=== PATIENT | male | born 1970 | race Caucasian/White ===

== ENCOUNTER 2017-03-31 21:27 | Emergency (ER) | payer MEDICARE ==
[2017-03-31 21:40] VITALS: BP 118/65; PULSE 78; O2SAT 98
[2017-03-31] MEDS ORDERED: NALBUPHINE HCL 10 MG/1 ML INJECTION IM ONE (22:06)
[2017-03-31] MEDS ORDERED: TORAdol 30 mg Injection IM ONE (22:06)
--- NOTE | 2017-03-31 22:15 | ERPHSYRPT ---
- History of Present Illness Time Seen by Provider: 03/31/17 22:12 Source: patient Exam Limitations: no limitations Patient Subjective Stated Complaint: states that his heating tank fell on him x 2 days ago and hurt his ribs and back - states that OTC medications are not helping Triage Nursing Assessment: ambulatory to treatment area - unsteady gait with borrowed cane - moves all extremities with some rigidity et discomfort. resps easy and shallow per pain. alert/oriented - grimmacing affect. skin pwd - no rash/injury Physician History: states that his heating tank fell on him x 2 days ago and hurt his ribs and back - states that OTC medications are not helping. Hx of back surgery in 2003, recent cardiac stent placement 3 - months ago. denies any chest pain, Back pain radiate to both legs Timing/Duration: today Method of Injury: lifting Quality: radiating, sharp, stabbing Back Pain Location: paraspinous muscles Back Pain Radiation: lower legs Severity of Pain-Max: severe Severity of Pain-Current: severe Modifying Factors: Improves With: nothing Associated Symptoms: denies symptoms Allergies/Adverse Reactions: No Known Drug Allergies Allergy (Verified 03/31/17 21:39) Home Medications: Aspirin 81 mg PO DAILY 03/31/17 [History] Atorvastatin Calcium 80 mg PO HS 03/31/17 [History] Bupropion HCl Xl 150 mg [Wellbutrin XL 150 MG] 150 mg PO DAILY 03/31/17 [ History] Cilostazol 100 mg PO DAILY 03/31/17 [History] Escitalopram Oxalate 10 mg [Lexapro 10 MG] 10 mg PO DAILY 03/31/17 [History] Levetiracetam [Keppra 500 mg ] 500 mg PO BID 03/31/17 [History] Lisinopril [Zestril] 2.5 mg PO DAILY 03/31/17 [History] Metoprolol Tartrate 25 mg [Lopressor 25MG Tab] 25 mg PO BID 03/31/17 [ History] Ticagrelor [Brilinta] 90 mg PO BID 03/31/17 [History] Hx Tetanus, Diphtheria Vaccination/Date Given: No Hx Influenza Vaccination/Date Given: No Hx Pneumococcal Vaccination/Date Given: No Immunizations Up to Date: Yes - Review of Systems Constitutional: No Fever, No Chills Eyes: No Symptoms Ears, Nose, & Throat: No Symptoms Respiratory: No Cough, No Dyspnea Cardiac: No Chest Pain, No Edema, No Syncope Abdominal/Gastrointestinal: No Abdominal Pain, No Nausea, No Vomiting, No Diarrhea Genitourinary Symptoms: No Dysuria Musculoskeletal: Back Pain, Other (left side chest wall pain), No Neck Pain Skin: No Rash Neurological: No Dizziness, No Focal Weakness, No Sensory Changes Psychological: No Symptoms Endocrine: No Symptoms All Other Systems: Reviewed and Negative - Past Medical History Pertinent Past Medical History: Yes Neurological History: Seizures Cardiac History: Myocardial Infarction ([place]) GI Medical History: Diverticulosis - Past Surgical History Past Surgical History: Yes Cardiac: Cardiac Stent Gastrointestinal: Appendectomy Musculoskeletal: Orthopedic Surgery - Social History Smoking Status: Current every day smoker How long have you smoked: YRS Exposure to second hand smoke: No Drug Use: none Patient Lives Alone: No - Nursing Vital Signs Nursing Vital Signs: Initial Vital Signs Temperature 98.0 F Temperature Source Oral Pulse Rate 78 Respiratory Rate 16 Blood Pressure [] 118/65 Pain Intensity [] 10 Pain Intensity 10 - Physical Exam General Appearance: no apparent distress, alert Eye Exam: PERRL/EOMI, eyes nml inspection Neck Exam: normal inspection, non-tender, supple, full range of motion, No meningismus, No midline tenderness Respiratory Exam: normal breath sounds, lungs clear, No respiratory distress Cardiovascular Exam: regular rate/rhythm, normal heart sounds Gastrointestinal Exam: soft, No tenderness, No mass Back Exam: decreased range of motion, muscle spasm, other (left side chest wall pain), No vertebral tenderness, No rash Extremity Exam: normal inspection, normal range of motion, No calf tenderness, No pedal edema Neurologic Exam: alert, oriented x 3, cooperative, 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, normal mood/affect, nml station & gait, sensation nml, No motor deficits Skin Exam: normal color, warm, dry, No rash SpO2: 98 Oxygen Delivery: Room Air - Course Nursing assessment & vital signs reviewed: Yes - Radiology Exams Chest X-ray Interpretation: Reviewed by me L-Spine X-ray Interpretation: Reviewed by me Ordered Tests: Active Orders 24 hr Category Date Time Status CHEST 2 VIEWS (PA AND LAT) Stat Exams 03/31/17 22:06 Completed LUMBAR COMPLETE (MIN 4 VIEWS) Stat Exams 03/31/17 22:06 Completed Medication Summary Discontinued Medications Generic Name Dose Route Start Last Admin Trade Name Adrian PRN Reason Stop Dose Admin Ketorolac Tromethamine 60 mg 03/31/17 22:06 03/31/17 22:33 Toradol 30 Mg Injection IM 03/31/17 22:07 60 mg STAT ONE Administration Ketorolac Tromethamine Confirm 03/31/17 22:29 Toradol 30 Mg Injection Administered 03/31/17 22:30 Dose 60 mg .ROUTE .STK-MED ONE Nalbuphine HCl 10 mg 03/31/17 22:06 03/31/17 22:27 Nalbuphine Hcl 10 Mg/1 Ml Injection IM 03/31/17 22:07 Not Given STAT ONE Orphenadrine Citrate 60 mg 03/31/17 22:26 03/31/17 22:33 Norflex 60 Mg/2 Ml IM 03/31/17 22:27 60 mg STAT ONE Administration Orphenadrine Citrate Confirm 03/31/17 22:29 Norflex 60 Mg/2 Ml Administered 03/31/17 22:30 Dose 60 mg .ROUTE .STK-MED ONE - Progress Progress: improved Counseled pt/family regarding: diagnosis, need for follow-up, rad results - Departure Time of Disposition: 22:48 Departure Disposition: Home Clinical Impression: Lumbalgia Qualifiers: Chronicity: acute Back pain laterality: bilateral Sciatica presence: with sciatica Sciatica laterality: bilateral sciatica Qualified Code(s): M54.42 - Lumbago with sciatica, left side; M54.41 - Lumbago with sciatica, right side Condition: Stable Critical Care Time: No Referrals: DOCTOR,NO FAMILY [Primary Care Provider] - Instructions: Low Back Pain, Back Pain With Sciatica Additional Instructions: BACK INJURY 1. May apply moist heat frequently for relief of pain. Take care not to burn the skin. Do not use heat for more than 30 minutes at a time. 2. Try to sleep on a firm bed, flat on your back. 3. If no improvement is noticed in 2-3 days, follow up with your family physician. 4. If you notice any numbness, tingling, weakness, or problems with your bowel or bladder, you should call your family physician or return to the emergency department. Please follow the instructions given to you. Please take your medication as prescribed if given. If symptoms recur or get worse, come back to the emergency room if you cannot reach your primary care physician, or call your primary care physician for an appointment. Again if your symptoms get worse, come back to the emergency room. Thanks for visiting emergency room, and let us take care of you. Prescriptions: Methylprednisolone Packet [Medrol Dosepack] 4 mg PO UD #30 packet Naproxen 375 mg [Naprosyn 375 mg] 375 mg PO Q8H #30 tablet Orphenadrine Citrate 100 mg [Norflex 100 MG Tablet] 100 mg PO BID #20 tab
[2017-03-31] MEDS ORDERED: Norflex 60 MG/2 ML IM ONE (22:26)
[2017-03-31] MEDS ORDERED: Norflex 60 MG/2 ML ONE (22:29)
[2017-03-31] MEDS ORDERED: TORAdol 30 mg Injection ONE (22:29)
--- NOTE | 2017-03-31 22:44 | XRAY ---
Indication: Low back pain. Comparison: None 5 views of the lumbar spine demonstrates 5 lumbar vertebral segments in normal alignment with mild L5-S1 degenerative disc disease as evidenced by disc space narrowing and endplate spurring. Mild bilateral L5-S1 degenerative facet arthropathy. No acute fracture, subluxation, or pars interarticularis defect. Impression: L5-S1 degenerative changes. Nothing acute.
--- NOTE | 2017-03-31 22:44 | XRAY ---
Indication: Left-sided chest pain. Comparison: None PA/lateral chest demonstrates normal heart, lungs, and bony thorax with a few incidental calcified granulomas.
== END 2017-03-31 23:10 | disposition home or self-care (01) ==
LOC: ED 21:27
DX: M54.42 Lumbago with sciatica, left side (principal); M54.41 Lumbago with sciatica, right side; W20.8XXA Other cause of strike by thrown, projected or falling object, initial encounter
CPT/HCPCS: 71020; 72110; 96372; 99284; J1885; J2360

== ENCOUNTER 2017-07-17 18:03 | Emergency (ER) | payer MEDICARE ==
[2017-07-17] MEDS ORDERED: MORPHINE SULFATE 10 MG/ML IV ONE (18:25)
[2017-07-17] MEDS ORDERED: Zofran 4 MG/2 ML VIAL IV ONE (18:25)
[2017-07-17] MEDS ORDERED: Nitrostat 0.4 MG (ED) SL ONE ×2 (18:25→18:39)
--- NOTE | 2017-07-17 18:25 | ERPHSYRPT ---
- History of Present Illness Time Seen by Provider: 07/17/17 18:17 Historian: patient Exam Limitations: clinical condition Patient Subjective Stated Complaint: Pt states "This morning around 3 or 4 I was watching tv and I started to have really bad chest pain, now it is going down my left arm and up into my neck." Triage Nursing Assessment: Pt alert and oriented X 3, skin pwd. pt ambulates with an upright steady gait, able to speak in clear full sentences. pt resting comfortably on the bed Physician History: PATIENT WITH A HISTORY OF CORONARY ARTERY DISEASE STENTS X 2 ON 12/18/2016 AND STENTS X 2 ON 01/17/2017 COMPLAINS OF ACUTE ON SUBSTERNAL CHEST PAIN ONSET AT 4AM CONSTANT, PAIN SCALE 5/10, HAS RADIATION TO LEFT ARM. DENIES DIAPHORESIS, PALPITATIONS, DYSPNEA OR COUGH. Timing/Duration: today Activities at Onset: none Quality: pressure, sharpness Location: substernal Chest Pain Radiation: arm Severity of Pain-Max: moderate Severity of Pain-Current: moderate Modifying Factors: Improves With: nothing Associated Symptoms: other (LEFT ARM PAIN) Prior Chest Pain/Cardiac Workup: cardiac cath (STENTS X4 NOVEMBER AND DECEMBER 2016), heart attack Nitro Today/Relief: 0.4 mg x 1, provided by ED Aspirin Treatment Today: 81 mg x 4, provided at home Allergies/Adverse Reactions: No Known Drug Allergies Allergy (Verified 03/31/17 21:39) Home Medications: No Reportable Medications [No Reported Medications] 07/17/17 [History] Hx Tetanus, Diphtheria Vaccination/Date Given: Yes Hx Influenza Vaccination/Date Given: No Hx Pneumococcal Vaccination/Date Given: No Immunizations Up to Date: Yes - Review of Systems Constitutional: No Fever, No Chills Eyes: No Symptoms Ears, Nose, & Throat: No Symptoms Respiratory: No Symptoms, No Cough, No Dyspnea Cardiac: Chest Pain, No Edema, No Syncope Abdominal/Gastrointestinal: No Symptoms, No Abdominal Pain, No Nausea, No Vomiting, No Diarrhea Genitourinary Symptoms: No Symptoms, No Dysuria Musculoskeletal: No Symptoms, No Back Pain, No Neck Pain Skin: No Symptoms, No Rash Neurological: No Dizziness, No Focal Weakness, No Sensory Changes Psychological: No Symptoms Endocrine: No Symptoms All Other Systems: Reviewed and Negative - Past Medical History Pertinent Past Medical History: Yes Neurological History: Seizures Cardiac History: Myocardial Infarction ([place]) GI Medical History: Diverticulosis - Past Surgical History Past Surgical History: Yes Cardiac: Cardiac Stent Gastrointestinal: Appendectomy Musculoskeletal: Orthopedic Surgery - Social History Smoking Status: Current every day smoker How long have you smoked: 32 years Exposure to second hand smoke: Yes Drug Use: none Patient Lives Alone: Yes - Nursing Vital Signs Nursing Vital Signs: Initial Vital Signs Temperature 98.1 F 07/17/17 18:03 Pulse Rate 82 07/17/17 18:03 Respiratory Rate 18 07/17/17 18:03 Blood Pressure 150/84 07/17/17 18:03 O2 Sat by Pulse Oximetry 96 07/17/17 18:03 Pain Scale Pain Intensity 1 - Physical Exam General Appearance: no apparent distress, alert Eye Exam: PERRL/EOMI, eyes nml inspection Ears, Nose, Throat Exam: normal ENT inspection, moist mucous membranes Neck Exam: normal inspection, non-tender, supple, full range of motion Respiratory Exam: normal breath sounds, lungs clear, No respiratory distress Cardiovascular Exam: regular rate/rhythm, normal heart sounds Gastrointestinal/Abdomen Exam: soft, normal bowel sounds, No tenderness, No mass Back Exam: normal inspection, No CVA tenderness, No vertebral tenderness Extremity Exam: normal inspection, normal range of motion Neurologic Exam: alert, oriented x 3, cooperative, normal mood/affect, sensation nml, No motor deficits Skin Exam: normal color, warm, dry SpO2 Interpretation: normal SpO2: 96 Oxygen Delivery: Room Air - Course EKG Interpreted by Me: RATE, Sinus Rhythm, NORMAL AXIS - Radiology Exams Chest X-ray Interpretation: Interpreted by me (FLAT DIAPHRAMS, NO INFILTRATE) Ordered Tests: Active Orders 24 hr Category Date Time Status EKG-ER Only STAT Care 07/17/17 18:25 Active Oxygen-ED Only NASAL CANNULA 2 lpm Care 07/17/17 18:25 Active CHEST 1 VIEW (PORTABLE) Stat Exams 07/17/17 18:26 Taken CBC W DIFF Stat Lab 07/17/17 18:35 Completed CMP Stat Lab 07/17/17 18:35 Completed D-DIMER QUANTITATION Stat Lab 07/17/17 18:35 Completed NT PRO BNP Stat Lab 07/17/17 18:35 Completed PROTIME WITH INR Stat Lab 07/17/17 18:35 Completed TROPONIN Q3H Lab 07/17/17 18:35 Completed TROPONIN Q3H Lab 07/17/17 21:30 Ordered TROPONIN Q3H Lab 07/18/17 00:30 Ordered TROPONIN Q3H Lab 07/18/17 03:30 Ordered TROPONIN Q3H Lab 07/18/17 06:30 Ordered Medication Summary Generic Name Dose Route Start Last Admin Trade Name Adrian PRN Reason Stop Dose Admin Sodium Chloride 1,000 mls @ 100 mls/hr 07/17/17 18:30 07/17/17 18:42 Sodium Chloride 0.9% 1000 Ml IV 08/16/17 18:29 100 mls/hr .Q10H [place] Administration Discontinued Medications Generic Name Dose Route Start Last Admin Trade Name Adrian PRN Reason Stop Dose Admin Morphine Sulfate 6 mg 07/17/17 18:25 07/17/17 18:41 Morphine Sulfate 10 Mg/Ml IV 07/17/17 18:26 6 mg STAT ONE Administration Morphine Sulfate Confirm 07/17/17 18:40 Morphine Sulfate 10 Mg/Ml Administered 07/17/17 18:41 Dose 10 mg .ROUTE .STK-MED ONE Nitroglycerin 0.4 mg 07/17/17 18:25 07/17/17 18:41 Nitrostat 0.4 Mg (Ed) SL 07/17/17 18:26 0.4 mg STAT ONE Administration Nitroglycerin Confirm 07/17/17 18:39 Nitrostat 0.4 Mg (Ed) Administered 07/17/17 18:40 Dose 0.4 mg SL .STK-MED ONE Nitroglycerin 1 gm 07/17/17 18:55 07/17/17 19:02 Nitro-Bid 2% Ud Packets TOP 07/17/17 18:56 1 gm STAT ONE Administration Nitroglycerin Confirm 07/17/17 19:01 Nitro-Bid 2% Ud Packets Administered 07/17/17 19:02 Dose 1 gm .ROUTE .STK-MED ONE Ondansetron HCl 4 mg 07/17/17 18:25 07/17/17 18:41 Zofran 4 Mg/2 Ml Vial IV 07/17/17 18:26 4 mg STAT ONE Administration Ondansetron HCl Confirm 07/17/17 18:39 Zofran 4 Mg/2 Ml Vial Administered 07/17/17 18:40 Dose 4 mg .ROUTE .STK-MED ONE Lab/Rad Data: Laboratory Result Diagrams 07/17/17 18:35 07/17/17 18:35 Laboratory Results 07/17/17 07/17/17 07/17/17 Range/Units 18:35 18:35 18:35 WBC (4.0-10.5) K/mm3 RBC (4.1-5.6) M/mm3 Hgb (12.5-18.0) gm/dl Hct (42-50) % MCV (78-100) fl MCH (26-32) pg MCHC (32-36) g/dl RDW (11.5-14.0) % Plt Count (150-450) K/mm3 MPV (6-9.5) fl Gran % (36.0-66.0) % Lymphocytes % (24.0-44.0) % Monocytes % (0.0-12.0) % Eosinophils % (0.00-5.0) % Basophils % (0.0-0.4) % Basophils # (0-0.4) INR 1.06 (0.8-3.0) D-Dimer < 200 (0-500) ng/mL Sodium 141 (136-145) mEq/L Potassium 4.0 (3.5-5.1) mEq/L Chloride 103 (98-107) mEq/L Carbon Dioxide 29.2 (21-32) mEq/L Anion Gap 13.0 (5-15) MEQ/L BUN 16 (9-20) mg/dL Creatinine 1.09 (0.55-1.30) mg/dl Estimated GFR > 60 ML/MIN Glucose 89 (70-110) MG/DL Calcium 9.5 (8.5-10.1) mg/dL Total Bilirubin 0.20 (0.2-1.0) mg/dL AST 16 (15-37) U/L ALT 21 (12-78) U/L Alkaline Phosphatase 83 (46-116) U/L Troponin I < 0.017 (0.000-0.056) ng/ml NT-Pro-B Natriuret Pep 26 (0-125) pg/ml Serum Total Protein 7.2 (6.4-8.2) gm/dL Albumin 3.6 (3.4-5.0) g/dL 10/23/17 Range/Units 18:35 WBC 10.1 (4.0-10.5) K/mm3 RBC 4.78 (4.1-5.6) M/mm3 Hgb 14.4 (12.5-18.0) gm/dl Hct 42.7 (42-50) % MCV 89.3 (78-100) fl MCH 30.1 (26-32) pg MCHC 33.7 (32-36) g/dl RDW 14.6 H (11.5-14.0) % Plt Count 275 (150-450) K/mm3 MPV 9.0 (6-9.5) fl Gran % 46.0 (36.0-66.0) % Lymphocytes % 40.6 (24.0-44.0) % Monocytes % 10.5 (0.0-12.0) % Eosinophils % 2.5 (0.00-5.0) % Basophils % 0.4 (0.0-0.4) % Basophils # 0.04 (0-0.4) INR (0.8-3.0) D-Dimer (0-500) ng/mL Sodium (136-145) mEq/L Potassium (3.5-5.1) mEq/L Chloride (98-107) mEq/L Carbon Dioxide (21-32) mEq/L Anion Gap (5-15) MEQ/L BUN (9-20) mg/dL Creatinine (0.55-1.30) mg/dl Estimated GFR ML/MIN Glucose (70-110) MG/DL Calcium (8.5-10.1) mg/dL Total Bilirubin (0.2-1.0) mg/dL AST (15-37) U/L ALT (12-78) U/L Alkaline Phosphatase (46-116) U/L Troponin I (0.000-0.056) ng/ml NT-Pro-B Natriuret Pep (0-125) pg/ml Serum Total Protein (6.4-8.2) gm/dL Albumin (3.4-5.0) g/dL - Progress Progress: improved Progress Note: 07/17/17 19:49 ADMINISTERED NITROGLYCERIN 0.4MG SL, IV MORPHINE 6 MG, NITRO PASTE 1" ANTERIOR CHEST WALL Discussed with DrKirk: Other (DISCUSSED WITH DR KRISHNAMURTHY AT 1955 ACCEPTS TRANSFER TO [facility]) - Departure Departure Disposition: Transfer Clinical Impression: UNSTABLE ANGINA Condition: Stable Critical Care Time: No Referrals: DOCTOR,NO FAMILY [Primary Care Provider] -
[2017-07-17] MEDS ORDERED: Sodium Chloride 0.9% 1000 ML 1,000 ML IV SCH (18:30)
[2017-07-17] MEDS ORDERED: Zofran 4 MG/2 ML VIAL ONE (18:39)
[2017-07-17] MEDS ORDERED: MORPHINE SULFATE 10 MG/ML ONE (18:40)
[2017-07-17] MEDS ORDERED: Sodium Chloride 0.9% 1000 ML 1,000 ML ONE (18:40)
[2017-07-17 18:43] LABS: BASOPHIL % 0.4 % (0.0-0.4); Eosinophil % 2.5 % (0.00-5.0); Lymphocytes % 40.6 % (24.0-44.0); Mean Cell Volume 89.3 fl (78-100); Mean Corpuscular Hemoglobin 30.1 pg (26-32); Monocytes % 10.5 % (0.0-12.0); Platelet Count 275 K/mm3 (150-450); Red Blood Count 4.78 M/mm3 (4.1-5.6); Red Cell Distribution Width 14.6 % (11.5-14.0); White Blood Count 10.1 K/mm3 (4.0-10.5)
[2017-07-17] MEDS ORDERED: NITRO-BID 2% UD PACKETS TOP ONE (18:55)
[2017-07-17 18:58] VITALS: BP 134/58; PULSE 80
[2017-07-17] MEDS ORDERED: NITRO-BID 2% UD PACKETS ONE (19:01)
[2017-07-17 19:08] LABS: INR 1.06 (0.8-3.0); PROTIME 11.8 SECONDS (8.83-12.87)
[2017-07-17 19:22] LABS: ALBUMIN 3.6 g/dL (3.4-5.0); ALKALINE PHOSPHATASE 83 U/L (46-116); BLOOD UREA NITROGEN 16 mg/dL (9-20); CHLORIDE 103 mEq/L (98-107); Carbon Dioxide 29.2 mEq/L (21-32); Glucose 89 MG/DL (70-110); SGOT/AST 16 U/L (15-37); SGPT/ALT 21 U/L (12-78); SODIUM 141 mEq/L (136-145); Total Protein 7.2 gm/dL (6.4-8.2)
[2017-07-17 19:26] VITALS: O2SAT 96
--- NOTE | 2017-07-18 09:01 | XRAY ---
Indication: Chest pain. Comparison: March 31, 2017. Portable apical lordotic chest again demonstrates normal heart, lungs, and bony thorax with a few incidental calcified granulomas.
== END 2017-07-17 20:20 | disposition short-term general hospital (02) ==
LOC: ED 18:03
DX: I20.0 Unstable angina (principal); I25.10 Atherosclerotic heart disease of native coronary artery without angina pectoris; Z98.61 Coronary angioplasty status; R07.89 Other chest pain
CPT/HCPCS: 36415; 71010; 80053; 83880; 84484; 85025; 85379; 85610; 93005; 96360; 96361; 96374; 96375; 99284; 99285; J2270; J2405; A9270-GY

== ENCOUNTER 2018-09-24 23:41 | Emergency (ER) | payer MEDICARE ==
[2018-09-25] MEDS ORDERED: Zofran 4 MG/2 ML VIAL IV ONE (00:02)
[2018-09-25] MEDS ORDERED: Sodium Chloride 0.9% 1000 ML 1,000 ML IV STA (00:02)
[2018-09-25] MEDS ORDERED: MORPHINE SULFATE 4 MG INJ IV ONE (00:02)
--- NOTE | 2018-09-25 00:07 | ERPHSYRPT ---
- History of Present Illness Time Seen by Provider: 09/25/18 00:03 Historian: patient Exam Limitations: no limitations Patient Subjective Stated Complaint: pt is alert and oriented. pt is ambulatory with a steady gait. pt comes in with c/o right sided flank pain. pt is grasping right side. pt has hx of kidney stones. pt denies difficulty urinating or blood in his urine. Triage Nursing Assessment: see above Physician History: 48-year-old white male with history of atherosclerotic coronary artery disease, cardiac stents, seizures, myocardial infarction, diverticulosis. Patient arrives with complaint of right lower quadrant abdominal pain right flank pain symptoms 3-4 days described as sharp and crampy no vomiting no diarrhea no melena no hematochezia no urinary symptoms. Past medical history includes coronary artery disease, cardiac stents, seizures , myocardial infarction, diverticulosis Past surgical history includes appendectomy, cardiac stent, orthopedic surgery ( hand surgery) Social history includes tobacco use and occasional alcohol use. Timing/Duration: day(s) (3-4 days) Activities at Onset: none Quality: aching, cramping, sharpness Abdominal Pain Onset Location: RLQ, flank (right flank) Pain Radiation: groin Severity of Pain-Max: moderate Severity of Pain-Current: moderate Modifying Factors: Improves With: nothing Associated Symptoms: back (right flank pain), testicular pain, vomiting, weakness, No chest pain, No diaphoresis, No diarrhea, No fever/chills, No fatigue, No headache, No heartburn, No loss of appetite, No nausea, No neck pain , No shortness of breath, No syncope Allergies/Adverse Reactions: No Known Drug Allergies Allergy (Verified 03/31/17 21:39) Home Medications: Aspirin EC 81 mg [Ecotrin 81 mg] 81 mg PO DAILY 09/25/18 [History] Atorvastatin Calcium [Lipitor] 80 mg PO DAILY 09/25/18 [History] Cilostazol 100 mg [Pletal 100 MG] 100 mg PO BID 09/25/18 [History] Isosorbide Mononitrate [Isosorbide Mononitrate ER] 30 mg PO DAILY 09/25/18 [ History] Lisinopril [Zestril] 2.5 mg PO DAILY 09/25/18 [History] Metoprolol Tartrate 25 mg [Lopressor 25MG Tab] 25 mg PO BID 09/25/18 [ History] Ranolazine [Ranexa] 1,000 mg PO BID 09/25/18 [History] Hx Tetanus, Diphtheria Vaccination/Date Given: Yes Hx Influenza Vaccination/Date Given: No Hx Pneumococcal Vaccination/Date Given: No Immunizations Up to Date: Yes - Review of Systems Constitutional: No Fever, No Chills Eyes: No Symptoms Ears, Nose, & Throat: No Symptoms Respiratory: No Cough, No Dyspnea Cardiac: No Chest Pain, No Edema, No Syncope Abdominal/Gastrointestinal: Abdominal Pain (right lower quadrant abdominaL PAIN) , No Nausea, No Vomiting, No Diarrhea, No Constipation, No Hematemesis, No Hematochezia, No Melena, No Dysphagia, No Appetite Changes Genitourinary Symptoms: Flank Pain (RIGHT FLANK PAIN), Testicle Pain (RIGHT TESTICLE PAIN) Musculoskeletal: Back Pain (right flank pain), Neck Pain, Deformity, Fall, Injury, Joint Redness, Joint Pain, Joint Swelling, Myalgias Skin: No Rash Neurological: No Dizziness, No Focal Weakness, No Sensory Changes Psychological: No Symptoms Endocrine: No Symptoms All Other Systems: Reviewed and Negative - Past Medical History Pertinent Past Medical History: Yes Neurological History: Seizures Cardiac History: Myocardial Infarction ([place]) GI Medical History: Diverticulosis - Past Surgical History Past Surgical History: Yes Cardiac: Cardiac Stent Gastrointestinal: Appendectomy Musculoskeletal: Orthopedic Surgery - Social History Smoking Status: Current every day smoker How long have you smoked: 33 years Exposure to second hand smoke: Yes Drug Use: none Patient Lives Alone: Yes - Nursing Vital Signs Nursing Vital Signs: Initial Vital Signs Pulse Rate 86 09/24/18 23:54 Respiratory Rate 24 09/24/18 23:54 Blood Pressure 143/92 09/24/18 23:54 O2 Sat by Pulse Oximetry 97 09/24/18 23:54 Pain Scale Pain Intensity 10 - Physical Exam General Appearance: moderate distress, alert Eye Exam: PERRL/EOMI, eyes nml inspection Ears, Nose, Throat Exam: normal ENT inspection, pharynx normal, moist mucous membranes Neck Exam: normal inspection, non-tender, supple, full range of motion Respiratory Exam: normal breath sounds, lungs clear, No respiratory distress Cardiovascular Exam: regular rate/rhythm, normal heart sounds, normal peripheral pulses, No murmur Gastrointestinal/Abdomen Exam: soft, normal bowel sounds, tenderness (Right lower quadranttenderness), No pulsatile mass Male Genitalia Exam: normal genitalia Back Exam: CVA tenderness (right flank tenderness), No normal range of motion, No vertebral tenderness, No rash, No decreased range of motion, No muscle spasm , No point tenderness Extremity Exam: normal inspection Neurologic Exam: alert, oriented x 3, 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 Nonobstructing renal calculi measuring up to 4 mm. 2. Moderate diverticulosis present within the distal colon. 3. Questionable mild wall thickening versus stool in the sigmoid colon. Correlate mild colititis .) Ordered Tests: Active Orders 24 hr Category Date Time Status IV Insertion STAT Care 09/25/18 00:02 Active ABDOMEN AND PELVIS W/0 CONTRAS [CT] Stat Exams 09/25/18 00:02 Taken AMYLASE Stat Lab 09/25/18 00:30 Completed CBC W DIFF Stat Lab 09/25/18 00:30 Completed CMP Stat Lab 09/25/18 00:30 Completed LIPASE Stat Lab 09/25/18 00:30 Completed UA W/RFX UR CULTURE Stat Lab 09/25/18 00:10 Completed Urine Triage Profile Stat Lab 09/25/18 00:10 Completed Medication Summary Discontinued Medications Generic Name Dose Route Start Last Admin Trade Name Adrian PRN Reason Stop Dose Admin Sodium Chloride 1,000 mls @ 999 mls/hr 09/25/18 00:02 09/25/18 00:40 Sodium Chloride 0.9% 1000 Ml IV 09/25/18 01:02 999 mls/hr .Q1H1M STA Administration Sodium Chloride Confirm 09/25/18 00:37 Sodium Chloride 0.9% 1000 Ml Administered 09/25/18 00:38 Dose 1,000 mls @ ud .ROUTE .STK-MED ONE Morphine Sulfate 4 mg 09/25/18 00:02 09/25/18 00:41 Morphine Sulfate 4 Mg Inj IV 09/25/18 00:03 4 mg STAT ONE Administration Morphine Sulfate Confirm 09/25/18 00:37 Morphine Sulfate 4 Mg Inj Administered 09/25/18 00:38 Dose 4 mg .ROUTE .STK-MED ONE Ondansetron HCl 4 mg 09/25/18 00:02 09/25/18 00:41 Zofran 4 Mg/2 Ml Vial IV 09/25/18 00:03 4 mg STAT ONE Administration Ondansetron HCl Confirm 09/25/18 00:37 Zofran 4 Mg/2 Ml Vial Administered 09/25/18 00:38 Dose 4 mg .ROUTE .STK-MED ONE Lab/Rad Data: Laboratory Result Diagrams 09/25/18 00:30 09/25/18 00:30 Laboratory Results 09/25/18 09/25/18 09/25/18 Range/Units 00:30 00:30 00:10 WBC 11.1 H (4.0-10.5) K/mm3 RBC 5.33 (4.1-5.6) M/mm3 Hgb 16.6 (12.5-18.0) gm/dl Hct 48.4 (42-50) % MCV 90.8 (78-100) fl MCH 31.1 (26-32) pg MCHC 34.3 (32-36) g/dl RDW 14.9 H (11.5-14.0) % Plt Count 296 (150-450) K/mm3 MPV 9.1 (6-9.5) fl Gran % 58.0 (36.0-66.0) % Eos # (Auto) 0.25 (0-0.5) Absolute Lymphs (auto) 3.40 (1.0-4.6) Absolute Monos (auto) 0.95 (0.0-1.3) Lymphocytes % 30.7 (24.0-44.0) % Monocytes % 8.6 (0.0-12.0) % Eosinophils % 2.3 (0.00-5.0) % Basophils % 0.4 (0.0-0.4) % Absolute Granulocytes 6.43 (1.4-6.9) Basophils # 0.04 (0-0.4) Sodium 142 (137-145) mmol/L Potassium 3.8 (3.5-5.1) mmol/L Chloride 102 (98-107) mmol/L Carbon Dioxide 27 (22-30) mmol/L Anion Gap 16.5 H (5-15) MEQ/L BUN 18 (9-20) mg/dL Creatinine 1.11 (0.66-1.25) mg/dL Estimated GFR > 60.0 ML/MIN Glucose 98 (74-106) mg/dL Calcium 10.2 (8.4-10.2) mg/dL Total Bilirubin 0.50 (0.2-1.3) mg/dL AST 29 (17-59) U/L ALT 34 (0-50) U/L Alkaline Phosphatase 100 (38-126) U/L Serum Total Protein 8.8 H (6.3-8.2) g/dL Albumin 5.0 (3.5-5.0) g/dL Amylase 197 H (30-110) U/L Lipase 302 H (23-300) U/L Urine Color (YELLOW) Urine Appearance (CLEAR) Urine pH (5-6) Ur Specific [place] (1.005-1.025) Urine Protein (Negative) Urine Ketones (NEGATIVE) Urine Blood (0-5) Rudolph/ul Urine Nitrite (NEGATIVE) Urine Bilirubin (NEGATIVE) Urine Urobilinogen (0-1) mg/dL Ur Leukocyte Esterase (NEGATIVE) Urine WBC (Auto) (0-5) /HPF Urine RBC (Auto) (0-2) /HPF U Hyaline Cast (Auto) (0-2) /LPF U Epithel Cells (Auto) (FEW) /HPF Urine Bacteria (Auto) (NEGATIVE) /HPF Urine Mucus (Auto) (NEGATIVE) /HPF Urine Culture Reflexed (NO) Urine Glucose (NEGATIVE) mg/dL Urine Opiates Level NEGATIVE (NEGATIVE) Ur Methadone NEGATIVE (NEGATIVE) Urine Barbiturates NEGATIVE (NEGATIVE) Ur Phencyclidine (PCP) NEGATIVE (NEGATIVE) Urine Amphetamine NEGATIVE (NEGATIVE) U Benzodiazepine Level NEGATIVE (NEGATIVE) Urine Cocaine NEGATIVE (NEGATIVE) Urine Marijuana (THC) POSITIVE (NEGATIVE) 09/25/18 Range/Units 00:10 WBC (4.0-10.5) K/mm3 RBC (4.1-5.6) M/mm3 Hgb (12.5-18.0) gm/dl Hct (42-50) % MCV (78-100) fl MCH (26-32) pg MCHC (32-36) g/dl RDW (11.5-14.0) % Plt Count (150-450) K/mm3 MPV (6-9.5) fl Gran % (36.0-66.0) % Eos # (Auto) (0-0.5) Absolute Lymphs (auto) (1.0-4.6) Absolute Monos (auto) (0.0-1.3) Lymphocytes % (24.0-44.0) % Monocytes % (0.0-12.0) % Eosinophils % (0.00-5.0) % Basophils % (0.0-0.4) % Absolute Granulocytes (1.4-6.9) Basophils # (0-0.4) Sodium (137-145) mmol/L Potassium (3.5-5.1) mmol/L Chloride (98-107) mmol/L Carbon Dioxide (22-30) mmol/L Anion Gap (5-15) MEQ/L BUN (9-20) mg/dL Creatinine (0.66-1.25) mg/dL Estimated GFR ML/MIN Glucose (74-106) mg/dL Calcium (8.4-10.2) mg/dL Total Bilirubin (0.2-1.3) mg/dL AST (17-59) U/L ALT (0-50) U/L Alkaline Phosphatase (38-126) U/L Serum Total Protein (6.3-8.2) g/dL Albumin (3.5-5.0) g/dL Amylase (30-110) U/L Lipase (23-300) U/L Urine Color YELLOW (YELLOW) Urine Appearance CLEAR (CLEAR) Urine pH 5.0 (5-6) Ur Specific [place] 1.026 (1.005-1.025) Urine Protein NEGATIVE (Negative) Urine Ketones NEGATIVE (NEGATIVE) Urine Blood SMALL (0-5) Rudolph/ul Urine Nitrite NEGATIVE (NEGATIVE) Urine Bilirubin NEGATIVE (NEGATIVE) Urine Urobilinogen 4 (0-1) mg/dL Ur Leukocyte Esterase NEGATIVE (NEGATIVE) Urine WBC (Auto) 3-5 (0-5) /HPF Urine RBC (Auto) 6-10 (0-2) /HPF U Hyaline Cast (Auto) 0-2 (0-2) /LPF U Epithel Cells (Auto) RARE (FEW) /HPF Urine Bacteria (Auto) FEW (NEGATIVE) /HPF Urine Mucus (Auto) MODERATE (NEGATIVE) /HPF Urine Culture Reflexed NO (NO) Urine Glucose NEGATIVE (NEGATIVE) mg/dL Urine Opiates Level (NEGATIVE) Ur Methadone (NEGATIVE) Urine Barbiturates (NEGATIVE) Ur Phencyclidine (PCP) (NEGATIVE) Urine Amphetamine (NEGATIVE) U Benzodiazepine Level (NEGATIVE) Urine Cocaine (NEGATIVE) Urine Marijuana (THC) (NEGATIVE) - Progress Progress: improved Progress Note: 09/25/18 01:23 Patient markedly improved after 1 L of normal saline and 4 mg of morphine and 4 mg of Zofran, Patient's CT abdomen: Impression 1. Nonobstructing renal calculi measuring up to 4 mm 2. Moderate diverticulosis present and distal colon 3. Question mild wall thickening versus stool in the sigmoid colon correlate mild colitis. Will go ahead and plan on discharging patient. Will place patient on Rinard for pain (I have examined his inspect report and I do not see any signs of recent or recurrent narcotic prescriptions) will have patient drink plenty of fluids strain his urine we'll give a list of physicians the patient can follow-up with. Patient will be advised to follow-up with a local physician. - Departure Time of Disposition: 01:25 Departure Disposition: Home Clinical Impression: Right flank pain, Renal colic Abdominal pain Qualifiers: Abdominal location: right lower quadrant Qualified Code(s): R10.31 - Right lower quadrant pain Urolithiasis Qualifiers: Urinary calculus location: kidney Qualified Code(s): N20.0 - Calculus of kidney Condition: Fair Critical Care Time: No Referrals: DOCTOR,NO FAMILY [Primary Care Provider] - Instructions: Kidney Stones ([place]), Flank Pain Additional Instructions: Return home. Plenty of fluids. Clear fluids only 24-48 hours if abdominal pain. Strain all urine. Rinard as prescribed. Follow-up with your family doctor (list). Return for acute distress or for severe symptoms. Prescriptions: Hydrocodone/Acetaminophen [Rinard 5-325 Tablet] 1 tab PO Q4-6HPRN PRN #12 tablet MDD 6 tablets PRN Reason: Pain
[2018-09-25 00:36] LABS: Appearance CLEAR (CLEAR); Bilirubin NEGATIVE (NEGATIVE); Blood SMALL Ery/ul (0-5); Glucose NEGATIVE (NEGATIVE); Ketones NEGATIVE (NEGATIVE); Leukocyte Esterase NEGATIVE (NEGATIVE); Nitrite NEGATIVE (NEGATIVE); Protein,Urine Dip NEGATIVE (Negative); Specific Gravity 1.026 (1.005-1.025); Urobilinogen 4 mg/dL (0-1)
[2018-09-25 00:37] LABS: BASOPHIL % 0.4 % (0.0-0.4); Basophil (Absolute #) 0.04 (0-0.4); Eosinophil % 2.3 % (0.00-5.0); Eosinophil (Absolute #) 0.25 (0-0.5); Granulocyte Absolute (ANC) 6.43 (1.4-6.9); Hematocrit 48.4 % (42-50); Hemoglobin 16.6 gm/dl (12.5-18.0); Lymphocytes % 30.7 % (24.0-44.0); Mean Cell Volume 90.8 fl (78-100); Mean Corpuscular Hemoglobin 31.1 pg (26-32); Mean Corpuscular Hgb Concent. 34.3 g/dl (32-36); Mean Platelet Volume 9.1 fl (6-9.5); Monocyte (Absolute #) 0.95 (0.0-1.3); Monocytes % 8.6 % (0.0-12.0); Platelet Count 296 K/mm3 (150-450); Red Blood Count 5.33 M/mm3 (4.1-5.6); Red Cell Distribution Width 14.9 % (11.5-14.0); White Blood Count 11.1 K/mm3 (4.0-10.5)
[2018-09-25] MEDS ORDERED: Sodium Chloride 0.9% 1000 ML 1,000 ML ONE (00:37)
[2018-09-25] MEDS ORDERED: Zofran 4 MG/2 ML VIAL ONE (00:37)
[2018-09-25] MEDS ORDERED: MORPHINE SULFATE 4 MG INJ ONE (00:37)
[2018-09-25 00:46] LABS: Amphetamine,Urine NEGATIVE (NEGATIVE); Barbiturate,Urine NEGATIVE (NEGATIVE); Benzodiazepine,Urine NEGATIVE (NEGATIVE); Cocaine,Urine NEGATIVE (NEGATIVE); Methadone,Urine NEGATIVE (NEGATIVE); Opiate,Urine NEGATIVE (NEGATIVE); PCP,Urine NEGATIVE (NEGATIVE); THC,Urine POSITIVE (NEGATIVE)
[2018-09-25 01:14] LABS: ALKALINE PHOSPHATASE 100 U/L (38-126); AMYLASE 197 U/L (30-110); ANION GAP 16.5 MEQ/L (5-15); BLOOD UREA NITROGEN 18 mg/dL (9-20); CHLORIDE 102 mmol/L (98-107); Calcium 10.2 mg/dL (8.4-10.2); Carbon Dioxide 27 mmol/L (22-30); Creatinine 1 1.11 mg/dL (0.66-1.25); Glucose 98 mg/dL (74-106); LIPASE 302 U/L (23-300); Potassium 3.8 mmol/L (3.5-5.1); SGOT/AST 29 U/L (17-59); SGPT/ALT 34 U/L (0-50); SODIUM 142 mmol/L (137-145); Total Protein 8.8 g/dL (6.3-8.2)
[2018-09-25] MEDS ORDERED: NORCO 5/325 MG PO ONE (01:31)
[2018-09-25] MEDS ORDERED: NORCO 5/325 MG ONE (01:40)
[2018-09-25 01:48] VITALS: BP 134/86; PULSE 69; O2SAT 95
--- NOTE | 2018-09-25 09:28 | XRAY ---
Indication: Right flank/right lower quadrant pain 4 days. Multiple contiguous axial images obtained through the abdomen and pelvis without contrast using renal stone protocol. Comparison: None Lung bases are clear. Heart is not enlarged. Two right renal and one left renal nonobstructing micro-calculi. Stomach is distended with fluid. Noncontrasted stomach and bowel loops appear nonobstructed. Previous reported appendectomy. There is mild diffuse scattered colonic fecal debris throughout. Minimal sigmoid diverticulosis. A few calcified splenic granulomas. Remaining liver, gallbladder, pancreas, spleen, adrenal glands, kidneys, ureters, and bladder appear unremarkable for noncontrast exam. Mild aortoiliac calcifications without AAA. Osseous structures intact with mild multilevel degenerative changes. No ventral or inguinal hernias. Impression: 1. Nonobstructing bilateral renal micro-calculi. 2. Fecal stasis without obstruction and sigmoid diverticulosis. 3. Remaining CT abdomen/pelvis without contrast exam is negative. Comment: Preliminary interpretation was made by [facility]. No critical discrepancy. CTDI 20.31
== END 2018-09-25 01:45 | disposition home or self-care (01) ==
LOC: ED 23:41
DX: N20.0 Calculus of kidney (principal); N23 Unspecified renal colic; R10.31 Right lower quadrant pain; M54.9 Dorsalgia, unspecified; N50.811 Right testicular pain; K57.30 Diverticulosis of large intestine without perforation or abscess without bleeding; Z79.899 Other long term (current) drug therapy
CPT/HCPCS: 36000; 36415; 74176; 80053; 80307; 81001; 82150; 83690; 85025; 96360; 96374; 96375; 99284; J2270; J2405; A9270-GY

== ENCOUNTER 2019-07-03 12:55 | Emergency (ER) | payer MEDICARE ==
--- NOTE | 2019-07-03 13:35 | ERPHSYRPT ---
- History of Present Illness Time Seen by Provider: 07/03/19 13:34 Source: patient, family Exam Limitations: no limitations Patient Subjective Stated Complaint: pt states 07/04 pain to back, pt states he was bending over and got a sharp pain, pt states that he had 2 previous back surgery, pt has chronic back pain with new pain starting 3 days ago, pt took alieve this morning Triage Nursing Assessment: pt ambulated into er with cane, pt restless, hypertention, reflexes normal, limited movement from , pain radiating to left buttock and leg Physician History: 49 y/o white male presents withlow back pain. pt has chronic low bp issues. 4 days ago pt bending and lifting and twisting. today hurts to lay flat. pt denies acute fall or trauma. Timing/Duration: day(s) (4), worse Method of Injury: bending, twisted, turning Quality: radiating, sharp Back Pain Location: lumbar spine Back Pain Radiation: buttocks Severity of Pain-Max: moderate Severity of Pain-Current: moderate Modifying Factors: Improves With: movement (and laying flat worsens) Associated Symptoms: lower back pain, muscle spasms Previous symptoms: same symptoms as today Allergies/Adverse Reactions: No Known Drug Allergies Allergy (Verified 07/03/19 13:16) Home Medications: Aspirin EC 81 mg [Ecotrin 81 mg] 81 mg PO DAILY 09/25/18 [History] Atorvastatin Calcium [Lipitor] 80 mg PO DAILY 09/25/18 [History] Cilostazol 100 mg [Pletal 100 MG] 100 mg PO BID 09/25/18 [History] Isosorbide Mononitrate [Isosorbide Mononitrate ER] 30 mg PO DAILY 09/25/18 [ History] Metoprolol Tartrate 25 mg [Lopressor 25MG Tab] 25 mg PO BID 09/25/18 [ History] Ranolazine [Ranexa] 1,000 mg PO BID 09/25/18 [History] Ezetimibe 10 mg PO DAILY 07/03/19 [History] Hx Tetanus, Diphtheria Vaccination/Date Given: Yes Hx Influenza Vaccination/Date Given: No Hx Pneumococcal Vaccination/Date Given: No - Review of Systems Constitutional: No Symptoms Eyes: No Symptoms Ears, Nose, & Throat: No Symptoms Respiratory: No Symptoms Cardiac: No Symptoms Abdominal/Gastrointestinal: No Symptoms Genitourinary Symptoms: No Symptoms Musculoskeletal: Back Pain Skin: No Symptoms Neurological: No Symptoms Psychological: No Symptoms Endocrine: No Symptoms Hematologic/Lymphatic: No Symptoms Immunological/Allergic: No Symptoms - Past Medical History Pertinent Past Medical History: Yes Neurological History: Seizures Cardiac History: High Cholesterol, Hypertension, Myocardial Infarction ([place]) Respiratory History: No Pertinent History Endocrine Medical History: No Pertinent History Musculoskeletal History: No Pertinent History GI Medical History: Diverticulosis History: No Pertinent History Psycho-Social History: No Pertinent History Male Reproductive Disorders: No Pertinent History - Past Surgical History Past Surgical History: Yes Cardiac: Cardiac Catheterization, Cardiac Stent Gastrointestinal: Appendectomy Musculoskeletal: Orthopedic Surgery - Social History Smoking Status: Current every day smoker How long have you smoked: 33 years Exposure to second hand smoke: Yes Drug Use: none Patient Lives Alone: Yes - Nursing Vital Signs Nursing Vital Signs: Initial Vital Signs Temperature 98.0 F 07/03/19 13:03 Pulse Rate 97 H 07/03/19 13:03 Blood Pressure 140/106 07/03/19 13:03 O2 Sat by Pulse Oximetry 100 07/03/19 13:03 Pain Scale Pain Intensity [Back] 10 Pain Intensity 10 - Physical Exam General Appearance: mild distress, alert, anxiety Eye Exam: PERRL/EOMI, eyes nml inspection Ears, Nose, Throat Exam: normal ENT inspection, moist mucous membranes Neck Exam: normal inspection, non-tender, supple, full range of motion Respiratory Exam: airway intact, No chest tenderness, No respiratory distress Gastrointestinal Exam: No tenderness Rectal Exam: not done Back Exam: normal inspection, decreased range of motion, muscle spasm, No CVA tenderness, No vertebral tenderness Extremity Exam: normal inspection, normal range of motion, pelvis stable Neurologic Exam: alert, oriented x 3, 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, 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 Skin Exam: normal color, warm, dry Lymphatic Exam: No adenopathy SpO2 Interpretation: normal SpO2: 100 O2 Delivery: Room Air Ordered Tests: Medication Summary Discontinued Medications Generic Name Dose Route Start Last Admin Trade Name Freq PRN Reason Stop Dose Admin Carisoprodol 350 mg 07/03/19 13:57 Soma 350 Mg PO 07/03/19 13:58 STAT ONE Hydromorphone HCl 1 mg 07/03/19 13:55 Hydromorphone 1 Mg/Ml Ampule IM 07/03/19 13:56 STAT ONE Hydromorphone HCl Confirm 07/03/19 14:22 Hydromorphone 1 Mg/Ml Ampule Administered 07/03/19 14:23 Dose 1 mg .ROUTE .STK-MED ONE Methylprednisolone Sodium Succinate 125 mg 07/03/19 13:56 Solu-Medrol 125 Mg IM 07/03/19 13:57 STAT ONE Methylprednisolone Sodium Succinate Confirm 07/03/19 14:22 Solu-Medrol 125 Mg Administered 07/03/19 14:23 Dose 125 mg .ROUTE .STK-MED ONE Ondansetron HCl 4 mg 07/03/19 13:56 Zofran Odt 4 Mg PO 07/03/19 13:57 STAT ONE Ondansetron HCl Confirm 07/03/19 14:22 Zofran Odt 4 Mg Administered 07/03/19 14:23 Dose 4 mg .ROUTE .STK-MED ONE - Progress Progress: improved, pain not gone completely, re-examined Counseled pt/family regarding: diagnosis, need for follow-up - Departure Departure Disposition: Home Clinical Impression: Acute exacerbation of chronic low back pain Condition: Stable Critical Care Time: No Referrals: ANJALI SINGER [Primary Care Provider] - Additional Instructions: follow up with primary doctor for further management Prescriptions: Carisoprodol 350 mg [Soma 350 mg] 350 mg PO Q8H PRN PRN #10 tablet PRN Reason: Muscle Spasms Oxycodone HCl/Acetaminophen [Percocet 5-325 mg Tablet] 1 each PO Q12H PRN #6 tablet MDD 2 PRN Reason: Pain Prednisone 10 mg [Deltasone 10 mg] 10 mg PO TID #12 tablet
[2019-07-03] MEDS ORDERED: Hydromorphone 1 mg/ml Ampule IM ONE (13:55)
[2019-07-03] MEDS ORDERED: ZOFRAN ODT 4 MG PO ONE (13:56)
[2019-07-03] MEDS ORDERED: solu-MEDROL 125 MG IM ONE (13:56)
[2019-07-03] MEDS ORDERED: SOMA 350 MG PO ONE (13:57)
[2019-07-03] MEDS ORDERED: Hydromorphone 1 mg/ml Ampule ONE (14:22)
[2019-07-03] MEDS ORDERED: solu-MEDROL 125 MG ONE (14:22)
[2019-07-03] MEDS ORDERED: ZOFRAN ODT 4 MG ONE (14:22)
[2019-07-03 14:27] VITALS: BP 126/90; PULSE 83
[2019-07-03 14:42] VITALS: O2SAT 100
== END 2019-07-03 14:48 | disposition home or self-care (01) ==
LOC: ED 12:55
DX: M54.5 Low back pain (principal); G89.29 Other chronic pain
CPT/HCPCS: 96372; 99284; J1170; J2930; Q0162; A9270-GY

== ENCOUNTER 2019-12-12 10:17 | Observation (INO) | payer MEDICARE ==
--- NOTE | 2019-12-12 10:43 | ERPHSYRPT ---
- History of Present Illness Time Seen by Provider: 12/12/19 10:30 Source: patient Exam Limitations: no limitations Physician History: For the past week pt has had constant low back, llq & rlq abdominal pain without radiation to the legs. pt also c/o increased urinary frequency and dribbling for the past week. pt denies chest pain, shortness of air, fever, chills, nausea, vomiting, diarrhea. Allergies/Adverse Reactions: No Known Drug Allergies Allergy (Verified 12/12/19 10:32) Home Medications: Cilostazol 100 mg [Pletal 100 MG] 100 mg PO BID 09/25/18 [History] Isosorbide Mononitrate [Isosorbide Mononitrate ER] 30 mg PO DAILY 09/25/18 [ History] Metoprolol Tartrate 25 mg [Lopressor 25MG Tab] 25 mg PO BID 09/25/18 [ History] Ranolazine [Ranexa] 1,000 mg PO BID 09/25/18 [History] Ezetimibe 10 mg PO DAILY 07/03/19 [History] Hx Tetanus, Diphtheria Vaccination/Date Given: Yes Hx Influenza Vaccination/Date Given: No Hx Pneumococcal Vaccination/Date Given: No - Review of Systems Constitutional: No Fever, No Chills Respiratory: No Dyspnea Cardiac: No Chest Pain Abdominal/Gastrointestinal: Abdominal Pain, No Nausea, No Vomiting, No Diarrhea Genitourinary Symptoms: Frequency Musculoskeletal: Back Pain Skin: No Rash All Other Systems: Reviewed and Negative - Past Medical History Pertinent Past Medical History: Yes Neurological History: Seizures Cardiac History: High Cholesterol, Hypertension, Myocardial Infarction ([place]) Respiratory History: No Pertinent History Endocrine Medical History: No Pertinent History Musculoskeletal History: No Pertinent History GI Medical History: Diverticulosis History: No Pertinent History Psycho-Social History: No Pertinent History Male Reproductive Disorders: No Pertinent History - Past Surgical History Past Surgical History: Yes Cardiac: Cardiac Catheterization, Cardiac Stent Gastrointestinal: Appendectomy Musculoskeletal: Orthopedic Surgery - Social History Smoking Status: Current every day smoker How long have you smoked: 33 years Exposure to second hand smoke: Yes Drug Use: none Patient Lives Alone: Yes - Nursing Vital Signs Nursing Vital Signs: Initial Vital Signs Temperature 98.0 F 12/12/19 10:34 Pulse Rate 99 H 12/12/19 10:34 Respiratory Rate 18 12/12/19 10:34 Blood Pressure 162/104 12/12/19 10:34 O2 Sat by Pulse Oximetry 96 12/12/19 10:34 Pain Scale Pain Intensity 8 - Physical Exam General Appearance: alert Eye Exam: PERRL/EOMI Ears, Nose, Throat Exam: TMs normal, pharynx normal Neck Exam: normal inspection Respiratory Exam: lungs clear Cardiovascular Exam: normal heart sounds Gastrointestinal Exam: soft, normal bowel sounds Back Exam: other (mild lumbar paravertebral muscle tenderness) Extremity Exam: normal range of motion, No pedal edema Peripheral Pulses: dorsalis-pedis (R): 2+, dorsalis-pedis (L): 2+ Neurologic Exam: alert, cooperative, sensation nml, No motor deficits Skin Exam: warm, dry SpO2 Interpretation: normal SpO2: 96 O2 Delivery: Room Air - Course Nursing assessment & vital signs reviewed: Yes - CT Exams Abdomen/Pelvis CT Interpretation: Discussed w/radiologist (mild diffuse fecal stasis without obstruction, sigmoid diverticulosis, and non-obstructing left renal microcalculus.) Ordered Tests: Active Orders 24 hr Category Date Time Status ABDOMEN AND PELVIS W/0 CONTRAS [CT] Stat Exams 12/12/19 10:44 Completed AMYLASE Stat Lab 12/12/19 10:55 Completed CBC W DIFF Stat Lab 12/12/19 10:55 Completed CMP Stat Lab 12/12/19 10:55 Completed LIPASE Stat Lab 12/12/19 10:55 Completed UA W/RFX UR CULTURE Stat Lab 12/12/19 10:55 Completed Medication Summary Discontinued Medications Generic Name Dose Route Start Last Admin Trade Name Adrian PRN Reason Stop Dose Admin Ketorolac Tromethamine 60 mg 12/12/19 10:44 12/12/19 10:53 Toradol 30 Mg Injection IM 12/12/19 10:45 60 mg STAT ONE Administration Ketorolac Tromethamine Confirm 12/12/19 10:49 Toradol 30 Mg Injection Administered 12/12/19 10:50 Dose 60 mg .ROUTE .STK-MED ONE Lab/Rad Data: Laboratory Result Diagrams 12/12/19 10:55 12/12/19 10:55 Laboratory Results 12/12/19 12/12/19 12/12/19 Range/Units 10:55 10:55 10:55 WBC 10.3 (4.0-10.5) K/mm3 RBC 5.09 (4.1-5.6) M/mm3 Hgb 15.7 (12.5-18.0) gm/dl Hct 46.0 (42-50) % MCV 90.4 (78-100) fl MCH 30.8 (26-32) pg MCHC 34.1 (32-36) g/dl RDW 14.7 H (11.5-14.0) % Plt Count 324 (150-450) K/mm3 MPV 8.7 (7.5-11.0) fl Gran % 63.1 (36.0-66.0) % Eos # (Auto) 0.19 (0-0.5) Absolute Lymphs (auto) 2.68 (1.0-4.6) Absolute Monos (auto) 0.91 (0.0-1.3) Lymphocytes % 25.9 (24.0-44.0) % Monocytes % 8.8 (0.0-12.0) % Eosinophils % 1.8 (0.00-5.0) % Basophils % 0.4 (0.0-0.4) % Absolute Granulocytes 6.52 (1.4-6.9) Basophils # 0.04 (0-0.4) Sodium 142 (137-145) mmol/L Potassium 4.2 (3.5-5.1) mmol/L Chloride 103 (98-107) mmol/L Carbon Dioxide 31 H (22-30) mmol/L Anion Gap 12.9 (5-15) MEQ/L BUN 16 (9-20) mg/dL Creatinine 1.00 (0.66-1.25) mg/dL Estimated GFR > 60.0 ML/MIN Glucose 116 H (74-106) mg/dL Calcium 9.4 (8.4-10.2) mg/dL Total Bilirubin 0.50 (0.2-1.3) mg/dL AST 24 (17-59) U/L ALT 20 (0-50) U/L Alkaline Phosphatase 80 (38-126) U/L Serum Total Protein 7.6 (6.3-8.2) g/dL Albumin 4.3 (3.5-5.0) g/dL Amylase 217 H (30-110) U/L Lipase 793 H (23-300) U/L Urine Color YELLOW (YELLOW) Urine Appearance CLEAR (CLEAR) Urine pH 6.0 (5-6) Ur Specific Mora 1.017 (1.005-1.025) Urine Protein NEGATIVE (Negative) Urine Ketones NEGATIVE (NEGATIVE) Urine Blood SMALL (0-5) Rudolph/ul Urine Nitrite NEGATIVE (NEGATIVE) Urine Bilirubin NEGATIVE (NEGATIVE) Urine Urobilinogen NEGATIVE (0-1) mg/dL Ur Leukocyte Esterase NEGATIVE (NEGATIVE) Urine WBC (Auto) 0-2 (0-5) /HPF Urine RBC (Auto) 3-5 (0-2) /HPF U Hyaline Cast (Auto) 0-2 (0-2) /LPF U Epithel Cells (Auto) RARE (FEW) /HPF Urine Bacteria (Auto) RARE (NEGATIVE) /HPF Urine Mucus (Auto) SLIGHT (NEGATIVE) /HPF Urine Culture Reflexed NO (NO) Urine Glucose NEGATIVE (NEGATIVE) mg/dL - Progress Progress: unchanged Discussed with : Krista ([phone]).) - Departure Departure Disposition: Observation Clinical Impression: Pancreatitis, Chronic back pain, HTN (hypertension) Condition: Stable Critical Care Time: No Referrals: ANJALI SINGER [Primary Care Provider] -
[2019-12-12] MEDS ORDERED: TORAdol 30 mg Injection IM ONE (10:44)
[2019-12-12] MEDS ORDERED: TORAdol 30 mg Injection ONE (10:49)
[2019-12-12 11:14] LABS: Absolute Neutrophil Ct (ANC) 6.52 (1.4-6.9); Appearance CLEAR (CLEAR); BASOPHIL % 0.4 % (0.0-0.4); Basophil (Absolute #) 0.04 (0-0.4); Bilirubin NEGATIVE (NEGATIVE); Blood SMALL Ery/ul (0-5); Eosinophil % 1.8 % (0.00-5.0); Eosinophil (Absolute #) 0.19 (0-0.5); Glucose NEGATIVE (NEGATIVE); Hemoglobin 15.7 gm/dl (12.5-18.0); Hyaline Casts 0-2 /LPF (0-2); Ketones NEGATIVE (NEGATIVE); Leukocyte Esterase NEGATIVE (NEGATIVE); Lymphocyte (Absolute #) 2.68 (1.0-4.6); Lymphocytes % 25.9 % (24.0-44.0); Mean Cell Volume 90.4 fl (78-100); Mean Corpuscular Hemoglobin 30.8 pg (26-32); Mean Corpuscular Hgb Concent. 34.1 g/dl (32-36); Mean Platelet Volume 8.7 fl (7.5-11.0); Monocyte (Absolute #) 0.91 (0.0-1.3); Monocytes % 8.8 % (0.0-12.0); Mucus SLIGHT /HPF (NEGATIVE); Neutrophil % 63.1 % (36.0-66.0); Nitrite NEGATIVE (NEGATIVE); Platelet Count 324 K/mm3 (150-450); Protein,Urine Dip NEGATIVE (Negative); Red Blood Count 5.09 M/mm3 (4.1-5.6); Red Cell Distribution Width 14.7 % (11.5-14.0); Specific Gravity 1.017 (1.005-1.025); Urobilinogen NEGATIVE mg/dL (0-1); WBC 0-2 /HPF (0-5); White Blood Count 10.3 K/mm3 (4.0-10.5)
[2019-12-12 11:15] LABS: ALBUMIN 4.3 g/dL (3.5-5.0); ALKALINE PHOSPHATASE 80 U/L (38-126); AMYLASE 217 U/L (30-110); ANION GAP 12.9 MEQ/L (5-15); BLOOD UREA NITROGEN 16 mg/dL (9-20); Bacteria RARE /HPF (NEGATIVE); CHLORIDE 103 mmol/L (98-107); Calcium 9.4 mg/dL (8.4-10.2); Carbon Dioxide 31 mmol/L (22-30); Epithelial Cells RARE /HPF (FEW); Glucose 116 mg/dL (74-106); LIPASE 793 U/L (23-300); Potassium 4.2 mmol/L (3.5-5.1); SGOT/AST 24 U/L (17-59); SGPT/ALT 20 U/L (0-50); SODIUM 142 mmol/L (137-145); Total Protein 7.6 g/dL (6.3-8.2)
--- NOTE | 2019-12-12 11:32 | XRAY ---
Indication: Right lower abdomen pain. Multiple contiguous axial images obtained through the abdomen and pelvis without contrast as ordered. Comparison: September 25, 2018. Lung bases remain clear. Heart is not enlarged. Noncontrasted stomach and bowel loops appear nonobstructed. Again previous reported appendectomy. There remains mild diffuse scattered colonic fecal debris throughout and mild sigmoid diverticulosis. No free fluid/air. Stable nonobstructing left renal micro-calculus and calcified splenic granulomas. Remaining liver, gallbladder, pancreas, spleen, adrenal glands, kidneys, ureters, and bladder appear unremarkable for noncontrast exam. Stable mild aortoiliac calcifications without AAA. Osseous structures intact again with mild lumbosacral junction degenerative changes. Impression: 1. Again mild diffuse fecal stasis without obstruction, sigmoid diverticulosis, and nonobstructing left renal micro-calculus. 2. Remaining CT abdomen/pelvis without contrast exam is negative.
[2019-12-12] MEDS ORDERED: Zofran 4 MG/2 ML VIAL IV PRN (12:26)
[2019-12-12] MEDS ORDERED: DILAUDID 2 MG INJECTION IV PRN (12:26)
[2019-12-12] MEDS ORDERED: Hydromorphone 1 mg/ml Ampule IV ONE (12:34)
[2019-12-12] MEDS ORDERED: Hydromorphone 1 mg/ml Ampule ONE (12:40)
[2019-12-12] MEDS ORDERED: Sodium Chloride 0.9% 1000 ML 1,000 ML ONE (12:40)
[2019-12-12] MEDS: Sodium Chloride 0.9% 1000 ML 1,000 ML IV SCH ×2 (12:49→22:51)
[2019-12-12] MEDS: PROTONIX 40 MG IV IV SCH (15:34)
[2019-12-12] MEDS: Cyclobenzaprine 10 MG PO SCH ×2 (15:34→21:51)
[2019-12-12] MEDS: Zetia 10 MG PO SCH (15:35)
[2019-12-12] MEDS: OXYCODONE-ACETAMINOPHEN 10-325 PO PRN ×2 (15:35→20:27)
[2019-12-12] MEDS: Imdur 30 MG PO SCH (15:35)
[2019-12-12] MEDS: Lopressor 25MG Tab PO SCH (21:51)
[2019-12-12] MEDS: Pletal 100 MG PO SCH (21:51)
[2019-12-12] MEDS ORDERED: NAPROSYN 375 MG PO SCH (22:00)
[2019-12-12] MEDS ORDERED: Flomax 0.4 MG PO SCH (22:00)
[2019-12-13] MEDS: OXYCODONE-ACETAMINOPHEN 10-325 PO PRN (04:09)
[2019-12-13 04:50] LABS: BASOPHIL % 0.3 % (0.0-0.4); Basophil (Absolute #) 0.03 (0-0.4); Eosinophil % 2.7 % (0.00-5.0); Eosinophil (Absolute #) 0.25 (0-0.5); Hematocrit 40.5 % (42-50); Hemoglobin 13.5 gm/dl (12.5-18.0); Lymphocyte (Absolute #) 2.84 (1.0-4.6); Lymphocytes % 30.4 % (24.0-44.0); Mean Cell Volume 91.4 fl (78-100); Mean Corpuscular Hemoglobin 30.5 pg (26-32); Mean Corpuscular Hgb Concent. 33.3 g/dl (32-36); Mean Platelet Volume 8.6 fl (7.5-11.0); Monocyte (Absolute #) 0.82 (0.0-1.3); Monocytes % 8.8 % (0.0-12.0); Neutrophil % 57.8 % (36.0-66.0); Platelet Count 284 K/mm3 (150-450); Red Blood Count 4.43 M/mm3 (4.1-5.6); Red Cell Distribution Width 14.7 % (11.5-14.0); White Blood Count 9.3 K/mm3 (4.0-10.5)
[2019-12-13 05:10] LABS: ALBUMIN 3.3 g/dL (3.5-5.0); ALKALINE PHOSPHATASE 70 U/L (38-126); AMYLASE 115 U/L (30-110); ANION GAP 10.3 MEQ/L (5-15); BLOOD UREA NITROGEN 21 mg/dL (9-20); CHLORIDE 106 mmol/L (98-107); Calcium 8.5 mg/dL (8.4-10.2); Carbon Dioxide 28 mmol/L (22-30); Glucose 103 mg/dL (74-106); LIPASE 90 U/L (23-300); Potassium 4.3 mmol/L (3.5-5.1); SGOT/AST 22 U/L (17-59); SGPT/ALT 15 U/L (0-50); SODIUM 140 mmol/L (137-145); Total Protein 6.2 g/dL (6.3-8.2)
[2019-12-13 07:47] VITALS: BP 99/53; PULSE 78; O2SAT 93
[2019-12-13] MEDS: PROTONIX 40 MG IV IV SCH (09:00)
[2019-12-13] MEDS: Zetia 10 MG PO SCH (09:02)
[2019-12-13] MEDS: Pletal 100 MG PO SCH (09:02)
[2019-12-13] MEDS: Lopressor 25MG Tab PO SCH (09:02)
[2019-12-13] MEDS: Cyclobenzaprine 10 MG PO SCH (09:02)
[2019-12-13] MEDS: Imdur 30 MG PO SCH (09:02)
--- NOTE | 2019-12-13 12:13 | SSS ---
DISCHARGE DIAGNOSES: 1) CHRONIC BACK DERANGEMENT. 2) INTRACTABLE BACK PAIN. 3) ELEVATION OF AMYLASE AND LIPASE. HISTORY: The patient is a 49 year-old white male patient with a long history of back problems. He has had two different surgeries performed. He recently seen Dr. Short in [place], a neurosurgeon at [facility], who declined to do surgery for the patient. The patient reported that he came into the emergency room because the back pain became so severe he could not take it any longer. The patient in the emergency room was evaluated and essentially found to have severe back derangement based on his previous scans. The patient is complaining of right and left lower quadrant abdominal pain with the back pain. He was found to have an elevation of his amylase and lipase and was felt the need to be admitted in the hospital for further evaluation and management. PAST MEDICAL/SURGICAL HISTORY: Otherwise significant for having had myocardial infarction. He has had seizures, hypertension, hyperlipidemia and diverticulosis and. He has had previous cardiac stenting and has had previous back surgeries. MEDICATIONS: At home were Pletal 100 mg b.i.d., isosorbide mononitrate 30 mg a day, metoprolol 25 mg twice a day, Ranexa 1,000 mg b.i.d., Zetia 10 mg a day. ALLERGIES: NKDA. PHYSICAL EXAMINATION: The patient's vital signs on admission showed temperature 98.0F, pulse 99, respiratory rate 18, blood pressure 162/94. O2 saturation 96%. HEENT: Normocephalic, atraumatic. Pupils equal round reactive to light. Extraocular movements intact. Oropharynx is pink and moist. NECK: Supple without lymphadenopathy, thyromegaly or JVD. CHEST: Clear to auscultation. HEART: Regular rate and rhythm. ABDOMEN: Soft. No palpable masses. EXTREMITIES: Without cyanosis, clubbing or edema. NEUROLOGIC: The patient is alert and oriented x3. LAB DATA AND TESTS: Normal UA. White count 10,300, hemoglobin 15.7, PLT count 324,000. Sugar 116. BUN 16, creatinine 1.0. Electrolytes were normal. Amylase elevated at 217 and lipase is 793. The patient's examinations revealed CT abdomen and pelvis showing mild diffuse fecal stasis without obstruction, diverticulosis was present, nonobstructing left renal microcalculi, remaining exam was negative. The patient had on the chart record CT scan of lumbar and cervical spine showing significant abnormalities including spinal stenosis and neuroforaminal narrowing and effacement of the neural canal. HOSPITAL COURSE: The patient was admitted to the medicine herrera, given IV fluids. He was allowed to eat a normal dinner as he had no clinical evidence for the reason for the elevation of his amylase and lipase. We rechecked the next morning and they were essentially normal. The patient received Flexeril, Naproxen, Percocet and Flomax to help out for his back pain issues and by the next morning the patient was feeling better. He was felt to be ready for discharge home at this point and we will make him an appointment to see Dr. Hi, our silo painter, upon release. He will see me in the office as needed or within the next month. We are delaying his return to the office due to COVID-19 pandemic currently.
== END 2019-12-13 09:55 | disposition home or self-care (01) ==
LOC: ED 10:17 → MED SURG 13:38
PROVIDERS: ADMIT Family Medicine; ATTEND Family Medicine
DX: M53.86 Other specified dorsopathies, lumbar region (principal); M54.9 Dorsalgia, unspecified; R10.32 Left lower quadrant pain; R10.31 Right lower quadrant pain; M48.02 Spinal stenosis, cervical region; M48.061 Spinal stenosis, lumbar region without neurogenic claudication; R79.89 Other specified abnormal findings of blood chemistry; I10 Essential (primary) hypertension; E78.5 Hyperlipidemia, unspecified; K57.30 Diverticulosis of large intestine without perforation or abscess without bleeding; Z79.899 Other long term (current) drug therapy
CPT/HCPCS: 36415; 74176; 80053; 81001; 82150; 83690; 85025; 93268; 96372; 96374; 99284; J1170; J1885; A9270-GY; G0378

== ENCOUNTER 2020-04-01 12:27 | Day surgery (SDC) | payer MEDICARE ==
[~2020-04-01 12:27] MED LIST: DIPRIVAN 200 MG/20 ML IV ONE; Ketamine HCl 50 MG/ML ONE
[2020-04-01] MEDS ORDERED: Sodium Chloride 0.9(Preservative Free) 10 ML IJ ONE (12:28)
[2020-04-01] MEDS ORDERED: Depo-Medrol 40 MG/ML IM ONE (12:28)
--- NOTE | 2020-04-01 15:12 | XRAY ---
Indication: Left L4-S1 transforaminal SADIA. Intraoperative fluoroscopy was provided for 27 seconds. 3 digital spot images submitted for interpretation demonstrates posterior needle tips projecting over the expected course of the left L4 and L5 nerve roots. Small amount of contrast injected for needle tip placement. Correlate with intraoperative findings/report.
--- NOTE | 2020-04-01 15:14 | XRAY ---
27 seconds fluoroscopy time in surgery for left L4-S1 transforaminal SADIA.
[2020-04-01] MEDS ORDERED: Lactated Ringers 1,000 ML IV ONE (15:57)
== END 2020-04-01 14:51 | disposition home or self-care (01) ==
LOC: SDC-PAIN 12:27
PROVIDERS: ATTEND Psychiatry & Neurology Pain Medicine
DX: M54.16 Radiculopathy, lumbar region (principal); I10 Essential (primary) hypertension; E78.5 Hyperlipidemia, unspecified; I25.10 Atherosclerotic heart disease of native coronary artery without angina pectoris; Z79.899 Other long term (current) drug therapy
CPT/HCPCS: 64483; 64484; 72100; 77003; J1030; J2704; Q9966

== ENCOUNTER 2020-07-21 10:36 | Observation (INO) | payer MEDICARE ==
[2020-07-21] MEDS ORDERED: Nitrostat 0.4 MG (ED) SL ONE ×2 (11:05→11:07)
[2020-07-21] MEDS ORDERED: BABY ASPIRIN 81 MG CHEW ONE (11:07)
[2020-07-21] MEDS ORDERED: BABY ASPIRIN 81 MG CHEW PO ONE (11:07)
[2020-07-21 11:14] LABS: Absolute Neutrophil Ct (ANC) 6.09 (1.4-6.9); BASOPHIL % 0.1 % (0.0-0.4); Basophil (Absolute #) 0.01 (0-0.4); Eosinophil % 1.1 % (0.00-5.0); Eosinophil (Absolute #) 0.12 (0-0.5); Hematocrit 47.2 % (42-50); Hemoglobin 15.7 gm/dl (12.5-18.0); Lymphocyte (Absolute #) 3.29 (1.0-4.6); Lymphocytes % 31.4 % (24.0-44.0); Mean Cell Volume 90.8 fl (78-100); Mean Corpuscular Hemoglobin 30.2 pg (26-32); Mean Corpuscular Hgb Concent. 33.3 g/dl (32-36); Mean Platelet Volume 9.1 fl (7.5-11.0); Monocyte (Absolute #) 0.97 (0.0-1.3); Monocytes % 9.3 % (0.0-12.0); Neutrophil % 58.1 % (36.0-66.0); Platelet Count 322 K/mm3 (150-450); Red Cell Distribution Width 15.5 % (11.5-14.0); White Blood Count 10.5 K/mm3 (4.0-10.5)
[2020-07-21 11:20] LABS: INR 1.05 (0.8-3.0); PROTIME 11.9 SECONDS (8.83-12.87)
[2020-07-21 11:23] LABS: PTT 34.4 SECONDS (24.1-36.1)
--- NOTE | 2020-07-21 11:24 | ERPHSYRPT ---
- History of Present Illness Historian: patient Patient Subjective Stated Complaint: pt here for pain to left arm since 0400 this morning that radiates to left side of chest, pt has a heart hx, took 2 nitro that helped some Triage Nursing Assessment: pt alert, resp easy, face mask in place, skin w/d/p. walked in, moves all ext well, no edema Physician History: 50 yo wm w h/o IN/Stents x4/HTN/Hyperlipidemia/1ppd smoker presents w L substernal CP x9hr w rad to LUE. Pain is rated 3/10 but has been up to 8/10. Pt took 2SL NTG w decrease in pain at home. He denies N/V/dyspnea but has had mild diaphoresis. He has not been taking any of his meds. Cough/fever are denied.Pt given 4 ASA per nursing. Timing/Duration: other (9hrs) Activities at Onset: sleep Quality: aching Location: central Chest Pain Radiation: arm Severity of Pain-Max: mild Severity of Pain-Current: moderate Modifying Factors: Improves With: nitroglycerin Associated Symptoms: diaphoresis, No nausea, No vomiting, No palpitations, No heartburn, No abdominal pain, No shortness of breath, No cough, No hurts to breathe, No chills, No fever, No fatigue, No weakness, No swelling/lump in chest, No syncope, No rash, No headache, No dizziness, No edema, No back pain Prior Chest Pain/Cardiac Workup: cardiac cath, heart attack Nitro Today/Relief: 0.4 mg x 2, provided at home, mild relief Aspirin Treatment Today: no aspirin today Allergies/Adverse Reactions: No Known Drug Allergies Allergy (Verified 07/21/20 10:50) Home Medications: No Reportable Medications [No Reported Medications] 07/21/20 [History] Hx Tetanus, Diphtheria Vaccination/Date Given: Yes Hx Influenza Vaccination/Date Given: No Hx Pneumococcal Vaccination/Date Given: No Immunizations Up to Date: Yes Travel Risk - International Travel Have you traveled outside of the country in past 3 weeks: No - Coronavirus Screening Are you exhibiting any of the following symptoms?: No Close contact with a COVID-19 positive Pt in past 14-21 Days: No - Review of Systems Constitutional: No Symptoms Eyes: No Symptoms Ears, Nose, & Throat: No Symptoms Respiratory: No Symptoms Cardiac: Chest Pain Abdominal/Gastrointestinal: No Symptoms Genitourinary Symptoms: No Symptoms Musculoskeletal: No Symptoms Skin: No Symptoms Neurological: No Symptoms Psychological: No Symptoms Endocrine: No Symptoms Hematologic/Lymphatic: No Symptoms Immunological/Allergic: No Symptoms - Past Medical History Pertinent Past Medical History: Yes Neurological History: Seizures Cardiac History: Coronary Artery Disease, High Cholesterol, Hypertension, Myocardial Infarction ([place]) Respiratory History: No Pertinent History, Asthma Endocrine Medical History: No Pertinent History Musculoskeletal History: No Pertinent History, Degenerative Disk Disease GI Medical History: Diverticulosis, GERD History: No Pertinent History Psycho-Social History: Anxiety, Depression Male Reproductive Disorders: No Pertinent History - Past Surgical History Past Surgical History: Yes Neuro Surgical History: No Pertinent History Cardiac: Cardiac Catheterization, Cardiac Stent Respiratory: No Pertinent History Gastrointestinal: Appendectomy Musculoskeletal: Orthopedic Surgery Other Surgical History: Back surgery - Social History Smoking Status: Current every day smoker How long have you smoked: 30 yrs Exposure to second hand smoke: Yes Drug Use: none Patient Lives Alone: Yes Significant Family History: no pertinent family hx - Nursing Vital Signs Nursing Vital Signs: Initial Vital Signs Temperature 98.3 F 07/21/20 10:44 Pulse Rate 77 07/21/20 10:44 Respiratory Rate 20 07/21/20 10:44 Blood Pressure 179/104 07/21/20 10:44 O2 Sat by Pulse Oximetry 99 07/21/20 10:44 Pain Scale Pain Intensity 2 - Physical Exam General Appearance: no apparent distress Eye Exam: PERRL/EOMI, eyes nml inspection Ears, Nose, Throat Exam: normal ENT inspection, TMs normal, pharynx normal, moist mucous membranes Neck Exam: normal inspection, non-tender, supple, full range of motion, No meningismus, No mass, No Brudzinski, No Kernig's, No carotid bruit, No JVD Respiratory Exam: normal breath sounds, lungs clear, airway intact, No chest tenderness, No respiratory distress Cardiovascular Exam: regular rate/rhythm, normal heart sounds, normal peripheral pulses, No murmur Gastrointestinal/Abdomen Exam: soft, normal bowel sounds, No tenderness Back Exam: normal inspection, normal range of motion, No CVA tenderness Extremity Exam: normal inspection, normal range of motion Neurologic Exam: alert, oriented x 3, cooperative, 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 II-XII nml as tested, normal mood/affect, nml station & gait, sensation nml, No motor deficits, No sensory deficit Skin Exam: normal color, warm, dry Lymphatic Exam: No adenopathy SpO2 Interpretation: normal SpO2: 99 O2 Delivery: Room Air - Course EKG Interpreted by Me: RATE (78/NSR/Normal QT-QTc/No acute ST-T wave changes) Ordered Tests: Active Orders 24 hr Category Date Time Status Gelatin Maker Utility STAT Care 07/21/20 11:06 Completed EKG-ER Only STAT Care 07/21/20 11:02 Completed IV Insertion STAT Care 07/21/20 11:06 Completed Heart-Healthy Diet Diet 07/21/20 Dinner Active CHEST 1 VIEW (PORTABLE) Stat Exams 07/21/20 11:03 Completed CBC W DIFF Stat Lab 07/21/20 11:11 Completed CMP Stat Lab 07/21/20 11:11 Completed LIPID PROFILE AM.LAB Lab 07/22/20 04:00 Ordered MAGNESIUM Stat Lab 07/21/20 11:11 Completed NT PRO BNP Stat Lab 07/21/20 11:11 Completed PROTIME WITH INR Stat Lab 07/21/20 11:11 Completed PTT Stat Lab 07/21/20 11:11 Completed TROPONIN Q3H Lab 07/21/20 11:11 Completed TROPONIN Q3H Lab 07/21/20 14:15 Ordered TROPONIN Q3H Lab 07/21/20 17:15 Ordered TROPONIN Q3H Lab 07/21/20 20:15 Ordered TROPONIN Q3H Lab 07/21/20 23:15 Ordered Transfer Order Routine Transfer 07/21/20 Completed Medication Summary Generic Name Dose Route Start Last Admin Trade Name Freq PRN Reason Stop Dose Admin Acetaminophen 650 mg 07/21/20 11:59 Tylenol 325 Mg PO 08/20/20 11:58 Q4H PRN PRN PAIN AND/OR FEVER Al Hydrox/Mg Hydrox/Simethicone 30 ml 07/21/20 11:59 Maalox Es 30 Ml Unit Dose PO 08/20/20 11:58 Q4H PRN PRN INDIGESTION Aspirin 325 mg 07/22/20 10:00 Ecotrin 325 Mg PO 08/21/20 09:59 DAILY CHILANGO Enoxaparin Sodium 40 mg 07/21/20 13:00 Enoxaparin Sodium SQ 08/20/20 12:59 DAILY CHILANGO Magnesium Hydroxide 30 - 60 ml 07/21/20 11:59 Milk Of Magnesia 30 Ml PO 08/20/20 11:58 QDP PRN CONSTIPATION Metoprolol Succinate 25 mg 07/21/20 13:00 Toprol-Xl 25mg Tablets PO 08/20/20 12:59 DAILY CHILANGO Morphine Sulfate 2 mg 07/21/20 11:59 Morphine Sulfate 2 Mg Inj IV 07/26/20 11:58 .Q15MIN PRN PRN CHEST PAIN Nitroglycerin 1 gm 07/21/20 14:00 07/21/20 12:05 Nitro-Bid 2% Ud Packets TOP 08/20/20 13:59 1 gm Q8HT CHILANGO Administration Ondansetron HCl 4 mg 07/21/20 11:59 Zofran 4 Mg/2 Ml Vial IV 08/20/20 11:58 Q4H PRN PRN NAUSEA/VOMITING Senna/Docusate Sodium 2 udtab 07/21/20 11:59 Senokot-S Tablet PO 08/20/20 11:58 BID PRN PRN CONSTIPATION Discontinued Medications Generic Name Dose Route Start Last Admin Trade Name Freq PRN Reason Stop Dose Admin Aspirin 324 mg 07/21/20 11:07 07/21/20 11:09 Baby Aspirin 81 Mg Chew PO 07/21/20 11:08 324 mg STAT ONE Administration Aspirin Confirm 07/21/20 11:07 Baby Aspirin 81 Mg Chew Administered 07/21/20 11:08 Dose 324 mg .ROUTE .STK-MED ONE Nitroglycerin 0.4 mg 07/21/20 11:05 07/21/20 11:09 Nitrostat 0.4 Mg (Ed) SL 07/21/20 11:06 0.4 mg STAT ONE Administration Nitroglycerin Confirm 07/21/20 11:07 Nitrostat 0.4 Mg (Ed) Administered 07/21/20 11:08 Dose 0.4 mg SL .STK-MED ONE Nitroglycerin Confirm 07/21/20 12:05 Nitro-Bid 2% Ud Packets Administered 07/21/20 12:06 Dose 1 gm .ROUTE .STK-MED ONE Lab/Rad Data: Laboratory Result Diagrams 07/21/20 11:11 07/21/20 11:11 Laboratory Results 07/21/20 07/21/20 07/21/20 Range/Units 11:11 11:11 11:11 WBC (4.0-10.5) K/mm3 RBC (4.1-5.6) M/mm3 Hgb (12.5-18.0) gm/dl Hct (42-50) % MCV (78-100) fl MCH (26-32) pg MCHC (32-36) g/dl RDW (11.5-14.0) % Plt Count (150-450) K/mm3 MPV (7.5-11.0) fl Gran % (36.0-66.0) % Eos # (Auto) (0-0.5) Absolute Lymphs (auto) (1.0-4.6) Absolute Monos (auto) (0.0-1.3) Lymphocytes % (24.0-44.0) % Monocytes % (0.0-12.0) % Eosinophils % (0.00-5.0) % Basophils % (0.0-0.4) % Absolute Granulocytes (1.4-6.9) Basophils # (0-0.4) PT 11.9 (8.83-12.87) SECONDS INR 1.05 (0.8-3.0) APTT 34.4 (24.1-36.1) SECONDS Sodium 138 (137-145) mmol/L Potassium 3.9 (3.5-5.1) mmol/L Chloride 104 (98-107) mmol/L Carbon Dioxide 27 (22-30) mmol/L Anion Gap 11.3 (5-15) MEQ/L BUN 17 (9-20) mg/dL Creatinine 1.05 (0.66-1.25) mg/dL Estimated GFR > 60.0 ML/MIN Glucose 111 H (74-106) mg/dL Calcium 9.4 (8.4-10.2) mg/dL Magnesium 2.1 (1.6-2.3) mg/dL Total Bilirubin 0.30 (0.2-1.3) mg/dL AST 22 (17-59) U/L ALT 15 (0-50) U/L Alkaline Phosphatase 96 (38-126) U/L Troponin I < 0.012 (0.000-0.034) ng/mL NT-Pro-B Natriuret Pep 33.1 (0-900) pg/mL Serum Total Protein 8.1 (6.3-8.2) g/dL Albumin 4.5 (3.5-5.0) g/dL 07/21/20 Range/Units 11:11 WBC 10.5 (4.0-10.5) K/mm3 RBC 5.20 (4.1-5.6) M/mm3 Hgb 15.7 (12.5-18.0) gm/dl Hct 47.2 (42-50) % MCV 90.8 (78-100) fl MCH 30.2 (26-32) pg MCHC 33.3 (32-36) g/dl RDW 15.5 H (11.5-14.0) % Plt Count 322 (150-450) K/mm3 MPV 9.1 (7.5-11.0) fl Gran % 58.1 (36.0-66.0) % Eos # (Auto) 0.12 (0-0.5) Absolute Lymphs (auto) 3.29 (1.0-4.6) Absolute Monos (auto) 0.97 (0.0-1.3) Lymphocytes % 31.4 (24.0-44.0) % Monocytes % 9.3 (0.0-12.0) % Eosinophils % 1.1 (0.00-5.0) % Basophils % 0.1 (0.0-0.4) % Absolute Granulocytes 6.09 (1.4-6.9) Basophils # 0.01 (0-0.4) PT (8.83-12.87) SECONDS INR (0.8-3.0) APTT (24.1-36.1) SECONDS Sodium (137-145) mmol/L Potassium (3.5-5.1) mmol/L Chloride (98-107) mmol/L Carbon Dioxide (22-30) mmol/L Anion Gap (5-15) MEQ/L BUN (9-20) mg/dL Creatinine (0.66-1.25) mg/dL Estimated GFR ML/MIN Glucose (74-106) mg/dL Calcium (8.4-10.2) mg/dL Magnesium (1.6-2.3) mg/dL Total Bilirubin (0.2-1.3) mg/dL AST (17-59) U/L ALT (0-50) U/L Alkaline Phosphatase (38-126) U/L Troponin I (0.000-0.034) ng/mL NT-Pro-B Natriuret Pep (0-900) pg/mL Serum Total Protein (6.3-8.2) g/dL Albumin (3.5-5.0) g/dL - Progress Progress: improved Progress Note: 07/21/20 11:52 1SL NTG w improvement in pain and BP 07/21/20 11:[address] Arndt Discussed with : Krista Counseled pt/family regarding: lab results, diagnosis, rad results, smoking cessation - Departure Departure Disposition: Observation Clinical Impression: Chest pain Condition: Stable Critical Care Time: No
--- NOTE | 2020-07-21 11:32 | XRAY ---
Indication: Chest pain. Comparison: April 18, 2019. Portable chest continues to demonstrate normal heart, lungs, and bony thorax with a few incidental tiny calcified granulomas.
[2020-07-21 11:33] LABS: ALBUMIN 4.5 g/dL (3.5-5.0); ALKALINE PHOSPHATASE 96 U/L (38-126); ANION GAP 11.3 MEQ/L (5-15); BLOOD UREA NITROGEN 17 mg/dL (9-20); CHLORIDE 104 mmol/L (98-107); Calcium 9.4 mg/dL (8.4-10.2); Carbon Dioxide 27 mmol/L (22-30); Creatinine 1 1.05 mg/dL (0.66-1.25); EST GLOMERULAR FILTRATION RATE > 60.0 ML/MIN; Glucose 111 mg/dL (74-106); MAGNESIUM 2.1 mg/dL (1.6-2.3); NT PRO BNP 33.1 pg/mL (0-900); Potassium 3.9 mmol/L (3.5-5.1); SGOT/AST 22 U/L (17-59); SGPT/ALT 15 U/L (0-50); SODIUM 138 mmol/L (137-145); Total Protein 8.1 g/dL (6.3-8.2)
[2020-07-21] MEDS ORDERED: Zofran 4 MG/2 ML VIAL IV PRN (11:59)
[2020-07-21] MEDS ORDERED: Senokot-S Tablet PO PRN (11:59)
[2020-07-21] MEDS ORDERED: MILK OF MAGNESIA 30 ML PO PRN (11:59)
[2020-07-21] MEDS ORDERED: TYLENOL 325 MG PO PRN (11:59)
[2020-07-21] MEDS ORDERED: MAALOX ES 30 ML UNIT DOSE PO PRN (11:59)
[2020-07-21] MEDS ORDERED: MORPHINE SULFATE 2 MG INJ IV PRN (11:59)
[2020-07-21] MEDS: NITRO-BID 2% UD PACKETS TOP SCH ×2 (12:05→22:27)
[2020-07-21] MEDS ORDERED: NITRO-BID 2% UD PACKETS ONE (12:05)
[2020-07-21] MEDS ORDERED: Toprol-Xl 25MG Tablets PO SCH (13:00)
[2020-07-21] MEDS ORDERED: ENOXAPARIN SODIUM SQ SCH (13:00)
[2020-07-22 05:43] LABS: Risk Ratio 5.3
[2020-07-22] MEDS: NITRO-BID 2% UD PACKETS TOP SCH (06:34)
[2020-07-22 07:26] VITALS: BP 150/84; PULSE 55; O2SAT 97
[2020-07-22] MEDS ORDERED: Ecotrin 325 MG PO SCH (10:00)
--- NOTE | 2020-07-22 10:06 | SSS ---
DISCHARGE DIAGNOSES: 1) UNSTABLE ANGINA PECTORIS. 2) CORONARY ARTERY DISEASE. 3) HYPERLIPIDEMIA. HISTORY: The patient is a 50 year old white male with known history of heart disease. He had stents placed x4 approximately two years ago by Dr. Bunn. The patient reports that he had been pretty good for the last year and it has been about a year since he has seen either me or Dr. Bunn. He began having problems with left arm pain radiating to about intermediate through to his chest on the left side. He took two Nitro and due to this concern he presented to the emergency room for further evaluation and management. The patient does admit to not taking medications recently. He has been having some disagreement with his pharmacy about getting pill packs done. He is unhappy with how he is getting his medications. He has therefore not been on any medication in the past few weeks. MEDICATIONS: The patient therefore is currently on no medications. ALLERGIES: NKDA. PHYSICAL EXAMINATION: Vital signs on admission showed temperature 98.3F, pulse 77, respiratory rate 20 and blood pressure 179/104. O2 saturation 99% on room air. HEENT: Normocephalic, atraumatic. Pupils equal round reactive to light. Extraocular movements intact. Oropharynx is pink and moist. NECK: Supple without lymphadenopathy, thyromegaly or JVD. CHEST: Clear to auscultation. HEART: Regular rate and rhythm. No murmurs, rubs or gallops. ABDOMEN: Soft. No palpable masses. EXTREMITIES: Without cyanosis, clubbing or edema. NEUROLOGIC: The patient is alert and oriented x3. No focal deficits were noted. LAB DATA AND TESTS: The patient's laboratory studies shows 12 lead EKG x2 with essentially appearing normal. He had multiple troponins done all less than 0.012. His lipid panel showed LDL of 166 with HDL of 42. His INR is 1.05. His sugar was 111. BUN 15, creatinine 1.05. Electrolytes are normal. Liver enzymes normal. ProBNP normal. CBC was normal. HOSPITAL COURSE: The patient admitted to the medicine herrera and monitored overnight. He had one episode of chest discomfort not lasting as long or severe during his stay but otherwise currently is pain free. The patient is felt to be ready for discharge home having ruled out for myocardial infarction. We will start him on carvedilol 6.25 mg b.i.d. and Crestor 10 mg a day for his hyperlipidemia. He was instructed to have aspirin 81 mg a day and he has Nitro tablets throughout the house that are current and apparently were somewhat helpful for him when he took them prior to presenting to the emergency room. The patient is instructed to see his neurosurgical physician assistant as soon as possible. He will have a follow up appointment to see me in one week and he is to return to the hospital if he has chest discomfort that is not controlled by his aspirin and Nitro.
== END 2020-07-22 09:10 | disposition home or self-care (01) ==
LOC: ED 10:36 → MED SURG 12:15
PROVIDERS: ADMIT Family Medicine; ATTEND Family Medicine
DX: I25.110 Atherosclerotic heart disease of native coronary artery with unstable angina pectoris (principal); E78.5 Hyperlipidemia, unspecified; Z79.899 Other long term (current) drug therapy
CPT/HCPCS: 36000; 36415; 71045; 80053; 80061; 83721; 83735; 83880; 84484; 85025; 85610; 85730; 93005; 93041; 93268; 99285; G0378; A9270-GY

== ENCOUNTER 2020-11-24 20:33 | Observation (INO) | payer MEDICARE ==
[2020-11-24] MEDS ORDERED: solu-MEDROL 125 MG IV ONE (21:09)
[2020-11-24] MEDS ORDERED: DUONEB 0.5-3 MG/3 ml Neb IH ONE (21:09)
[2020-11-24] MEDS ORDERED: BABY ASPIRIN 81 MG CHEW PO ONE (21:10)
[2020-11-24] MEDS ORDERED: MORPHINE SULFATE 4 MG INJ IV ONE ×2 (21:10→21:43)
[2020-11-24] MEDS ORDERED: Zofran 4 MG/2 ML VIAL IV ONE ×2 (21:10→21:41)
[2020-11-24] MEDS ORDERED: Zofran 4 MG/2 ML VIAL ONE (21:16)
[2020-11-24] MEDS ORDERED: solu-MEDROL 125 MG ONE (21:16)
[2020-11-24] MEDS ORDERED: BABY ASPIRIN 81 MG CHEW ONE (21:16)
[2020-11-24] MEDS ORDERED: MORPHINE SULFATE 4 MG INJ ONE ×2 (21:16→21:41)
[2020-11-24] MEDS ORDERED: VENTOLIN COMMON CANISTER IH ONE (21:28)
[2020-11-24 21:41] LABS: Absolute Neutrophil Ct (ANC) 6.75 (1.4-6.9); BASOPHIL % 0.2 % (0.0-0.4); Basophil (Absolute #) 0.03 (0-0.4); Eosinophil % 1.8 % (0.00-5.0); Eosinophil (Absolute #) 0.25 (0-0.5); Hemoglobin 14.9 gm/dl (12.5-18.0); Lymphocytes % 36.6 % (24.0-44.0); Mean Cell Volume 88.9 fl (78-100); Mean Corpuscular Hemoglobin 29.4 pg (26-32); Mean Corpuscular Hgb Concent. 33.1 g/dl (32-36); Monocyte (Absolute #) 1.62 (0.0-1.3); Monocytes % 11.9 % (0.0-12.0); Neutrophil % 49.5 % (36.0-66.0); Platelet Count 347 K/mm3 (150-450); Red Blood Count 5.06 M/mm3 (4.1-5.6); Red Cell Distribution Width 16.4 % (11.5-14.0); White Blood Count 13.7 K/mm3 (4.0-10.5)
[2020-11-24 22:01] LABS: ALBUMIN 4.3 g/dL (3.5-5.0); ALKALINE PHOSPHATASE 92 U/L (38-126); ANION GAP 9.7 MEQ/L (5-15); BLOOD UREA NITROGEN 23 mg/dL (9-20); CHLORIDE 101 mmol/L (98-107); Carbon Dioxide 32 mmol/L (22-30); Creatinine 1 1.11 mg/dL (0.66-1.25); EST GLOMERULAR FILTRATION RATE > 60.0 ML/MIN; Glucose 92 mg/dL (74-106); Potassium 3.5 mmol/L (3.5-5.1); SGOT/AST 21 U/L (17-59); SGPT/ALT 17 U/L (0-50); SODIUM 138 mmol/L (137-145); Total Protein 7.4 g/dL (6.3-8.2)
[2020-11-24 23:14] LABS: Slide Review 1 YES
--- NOTE | 2020-11-24 23:21 | ERPHSYRPT ---
- History of Present Illness Time Seen by Provider: 11/24/20 20:37 Historian: patient Exam Limitations: no limitations Patient Subjective Stated Complaint: pt states he has had a cough for a few weeks that has been getting worse, states pain in lt chest and ribs radiating to lt shoulder blade. Triage Nursing Assessment: pt alert and oriented, answers questions approp. pt ambulatory with steady gait noted. respirations nonlabored with lungs cta. tenderness noted over lt ribs. pt short of breath with exertion. skin warm and dry. heart rate 94 sinus rhythm on monitor Physician History: 50 years old male with history of coronary artery disease status post stenting, tobacco abuse, COPD presented in the ER with 2 days history of left-sided chest pain with radiation to left upper back and shoulder blade area, moderate intensity, sharp in nature with associated shortness of breath and cough productive of clear to yellow sputum. Denies any fever or chills. Patient has been taking only aspirin and no other cardiac medications as he lost his follow- up with cardiology. Reports recently taking antibiotics for infectious colitis. Timing/Duration: day(s) (2), gradual onset, worse Activities at Onset: rest Quality: sharpness Location: shoulder, back Chest Pain Radiation: back Severity of Pain-Max: moderate Severity of Pain-Current: moderate Modifying Factors: Worsens With: movement, palpation, sitting up Associated Symptoms: shortness of breath, back pain Prior Chest Pain/Cardiac Workup: cardiac cath Nitro Today/Relief: no nitro taken today Aspirin Treatment Today: 81 mg x 1 Allergies/Adverse Reactions: No Known Drug Allergies Allergy (Verified 11/24/20 20:58) Hx Tetanus, Diphtheria Vaccination/Date Given: Yes Hx Influenza Vaccination/Date Given: No Hx Pneumococcal Vaccination/Date Given: No Immunizations Up to Date: Yes Travel Risk - International Travel Have you traveled outside of the country in past 3 weeks: No - Coronavirus Screening Are you exhibiting any of the following symptoms?: Yes Symptoms: Fever, Shortness of Breath Close contact with a COVID-19 positive Pt in past 14-21 Days: No - Review of Systems Constitutional: No Symptoms Eyes: No Symptoms Ears, Nose, & Throat: No Symptoms Respiratory: Cough, Dyspnea, Dyspnea on Exertion (VIVEROS), Wheezing Cardiac: Chest Pain Abdominal/Gastrointestinal: No Symptoms Genitourinary Symptoms: No Symptoms Musculoskeletal: Back Pain Skin: No Symptoms Neurological: No Symptoms Psychological: No Symptoms Endocrine: No Symptoms Hematologic/Lymphatic: No Symptoms Immunological/Allergic: No Symptoms - Past Medical History Pertinent Past Medical History: Yes Neurological History: Seizures ENT History: No Pertinent History Cardiac History: Coronary Artery Disease, High Cholesterol, Hypertension, Myocardial Infarction (NM) Respiratory History: No Pertinent History, Asthma Endocrine Medical History: No Pertinent History Musculoskeletal History: No Pertinent History, Degenerative Disk Disease GI Medical History: Diverticulosis, GERD History: No Pertinent History Psycho-Social History: Anxiety, Depression Male Reproductive Disorders: No Pertinent History - Past Surgical History Past Surgical History: Yes Neuro Surgical History: No Pertinent History Cardiac: Cardiac Catheterization, Cardiac Stent Respiratory: No Pertinent History Gastrointestinal: Appendectomy Genitourinary: No Pertinent History Musculoskeletal: Orthopedic Surgery Male Surgical History: No Pertinent History Other Surgical History: Back surgery, 5 cardiac stents - Social History Smoking Status: Current every day smoker How long have you smoked: 35 Exposure to second hand smoke: Yes Drug Use: none Patient Lives Alone: Yes Significant Family History: no pertinent family hx - Nursing Vital Signs Nursing Vital Signs: Initial Vital Signs Temperature 98.3 F 11/24/20 20:41 Pulse Rate 96 H 11/24/20 20:41 Respiratory Rate 20 11/24/20 20:41 Blood Pressure 153/107 11/24/20 20:41 O2 Sat by Pulse Oximetry 98 11/24/20 20:41 Pain Scale Pain Intensity 3 - Physical Exam General Appearance: no apparent distress, alert Eye Exam: eyes nml inspection Ears, Nose, Throat Exam: normal ENT inspection, TMs normal, pharynx normal Neck Exam: normal inspection, non-tender, supple, full range of motion Respiratory Exam: chest tenderness, wheezing Cardiovascular Exam: regular rate/rhythm, normal heart sounds Gastrointestinal/Abdomen Exam: soft, normal bowel sounds, No tenderness Back Exam: normal inspection, normal range of motion, No CVA tenderness Extremity Exam: normal inspection, normal range of motion Neurologic Exam: alert, oriented x 3, cooperative, manager loan II-XII nml as tested Skin Exam: normal color SpO2 Interpretation: normal SpO2: 97 O2 Delivery: Room Air - Course EKG Interpreted by Me: RATE (95), Sinus Rhythm, NORMAL AXIS, NORMAL INTERVALS, Other (PACs) Ordered Tests: Active Orders 24 hr Category Date Time Status Place Change Roof Bolter STAT Care 11/24/20 20:57 Active EKG-ER Only STAT Care 11/24/20 20:56 Active IV Insertion STAT Care 11/24/20 20:56 Active Oxygen-ED Only Nasal Cannula 2 lpm Care 11/24/20 22:20 Active CHEST WITH CONTRAST [CT] Stat Exams 11/24/20 22:11 Taken BLOOD CULTURE Stat Lab 11/24/20 21:30 Received CBC W DIFF Stat Lab 11/24/20 21:15 Completed CMP Stat Lab 11/24/20 21:15 Completed Lactic Acid Stat Lab 11/24/20 21:20 Completed NT PRO BNP Stat Lab 11/24/20 21:15 Completed TROPONIN Q3H Lab 11/24/20 21:15 Completed TROPONIN Q3H Lab 11/25/20 00:15 Ordered TROPONIN Q3H Lab 11/25/20 03:15 Ordered TROPONIN Q3H Lab 11/25/20 06:15 Ordered TROPONIN Q3H Lab 11/25/20 09:15 Ordered Respiratory Therapy Assessment DAILY RT 11/24/20 21:37 Active Medication Summary Discontinued Medications Generic Name Dose Route Start Last Admin Trade Name Freq PRN Reason Stop Dose Admin Albuterol Sulfate 4 puff 11/24/20 21:28 11/24/20 21:29 Ventolin Common Canister IH 11/24/20 21:29 4 puff STAT ONE Administration Albuterol/Ipratropium 3 ml 11/24/20 21:09 11/24/20 21:40 Duoneb 0.5-3 Mg/3 Ml Neb IH 11/24/20 21:10 Not Given STAT ONE Aspirin 324 mg 11/24/20 21:10 11/24/20 21:19 Baby Aspirin 81 Mg Chew PO 11/24/20 21:11 324 mg STAT ONE Administration Aspirin Confirm 11/24/20 21:16 Baby Aspirin 81 Mg Chew Administered 11/24/20 21:17 Dose 324 mg .ROUTE .STK-MED ONE Methylprednisolone Sodium Succinate 125 mg 11/24/20 21:09 11/24/20 21:20 Solu-Medrol 125 Mg IV 11/24/20 21:10 125 mg STAT ONE Administration Methylprednisolone Sodium Succinate Confirm 11/24/20 21:16 Solu-Medrol 125 Mg Administered 11/24/20 21:17 Dose 125 mg .ROUTE .STK-MED ONE Morphine Sulfate 4 mg 11/24/20 21:10 11/24/20 21:19 Morphine Sulfate 4 Mg Inj IV 11/24/20 21:11 4 mg STAT ONE Administration Morphine Sulfate Confirm 11/24/20 21:16 Morphine Sulfate 4 Mg Inj Administered 11/24/20 21:17 Dose 4 mg .ROUTE .STK-MED ONE Morphine Sulfate Confirm 11/24/20 21:41 Morphine Sulfate 4 Mg Inj Administered 11/24/20 21:42 Dose 4 mg .ROUTE .STK-MED ONE Morphine Sulfate 4 mg 11/24/20 21:43 11/24/20 21:46 Morphine Sulfate 4 Mg Inj IV 11/24/20 21:44 4 mg STAT ONE Administration Ondansetron HCl 4 mg 11/24/20 21:10 11/24/20 21:20 Zofran 4 Mg/2 Ml Vial IV 11/24/20 21:11 4 mg STAT ONE Administration Ondansetron HCl Confirm 11/24/20 21:16 Zofran 4 Mg/2 Ml Vial Administered 11/24/20 21:17 Dose 4 mg .ROUTE .STK-MED ONE Ondansetron HCl 4 mg 11/24/20 21:41 11/24/20 21:43 Zofran 4 Mg/2 Ml Vial IV 11/24/20 21:42 Not Given STAT ONE Lab/Rad Data: Laboratory Result Diagrams 11/24/20 21:15 11/24/20 21:15 Laboratory Results 11/24/20 11/24/20 11/24/20 Range/Units 21:20 21:15 21:15 WBC (4.0-10.5) K/mm3 RBC (4.1-5.6) M/mm3 Hgb (12.5-18.0) gm/dl Hct (42-50) % MCV (78-100) fl MCH (26-32) pg MCHC (32-36) g/dl RDW (11.5-14.0) % Plt Count (150-450) K/mm3 MPV (7.5-11.0) fl Gran % (36.0-66.0) % Eos # (Auto) (0-0.5) Absolute Lymphs (auto) (1.0-4.6) Absolute Monos (auto) (0.0-1.3) Lymphocytes % (24.0-44.0) % Monocytes % (0.0-12.0) % Eosinophils % (0.00-5.0) % Basophils % (0.0-0.4) % Absolute Granulocytes (1.4-6.9) Basophils # (0-0.4) Sodium 138 (137-145) mmol/L Potassium 3.5 (3.5-5.1) mmol/L Chloride 101 (98-107) mmol/L Carbon Dioxide 32 H (22-30) mmol/L Anion Gap 9.7 (5-15) MEQ/L BUN 23 H (9-20) mg/dL Creatinine 1.11 (0.66-1.25) mg/dL Estimated GFR > 60.0 ML/MIN Glucose 92 (74-106) mg/dL Lactic Acid 1.3 (0.4-2.0) Calcium 10.0 (8.4-10.2) mg/dL Total Bilirubin 0.20 (0.2-1.3) mg/dL AST 21 (17-59) U/L ALT 17 (0-50) U/L Alkaline Phosphatase 92 (38-126) U/L Troponin I < 0.012 (0.000-0.034) ng/mL NT-Pro-B Natriuret Pep 89.0 (0-900) pg/mL Serum Total Protein 7.4 (6.3-8.2) g/dL Albumin 4.3 (3.5-5.0) g/dL Slides for Path Review 11/24/20 Range/Units 21:15 WBC 13.7 H (4.0-10.5) K/mm3 RBC 5.06 (4.1-5.6) M/mm3 Hgb 14.9 (12.5-18.0) gm/dl Hct 45.0 (42-50) % MCV 88.9 (78-100) fl MCH 29.4 (26-32) pg MCHC 33.1 (32-36) g/dl RDW 16.4 H (11.5-14.0) % Plt Count 347 (150-450) K/mm3 MPV 9.0 (7.5-11.0) fl Gran % 49.5 (36.0-66.0) % Eos # (Auto) 0.25 (0-0.5) Absolute Lymphs (auto) 5.00 H (1.0-4.6) Absolute Monos (auto) 1.62 H (0.0-1.3) Lymphocytes % 36.6 (24.0-44.0) % Monocytes % 11.9 (0.0-12.0) % Eosinophils % 1.8 (0.00-5.0) % Basophils % 0.2 (0.0-0.4) % Absolute Granulocytes 6.75 (1.4-6.9) Basophils # 0.03 (0-0.4) Sodium (137-145) mmol/L Potassium (3.5-5.1) mmol/L Chloride (98-107) mmol/L Carbon Dioxide (22-30) mmol/L Anion Gap (5-15) MEQ/L BUN (9-20) mg/dL Creatinine (0.66-1.25) mg/dL Estimated GFR ML/MIN Glucose (74-106) mg/dL Lactic Acid (0.4-2.0) Calcium (8.4-10.2) mg/dL Total Bilirubin (0.2-1.3) mg/dL AST (17-59) U/L ALT (0-50) U/L Alkaline Phosphatase (38-126) U/L Troponin I (0.000-0.034) ng/mL NT-Pro-B Natriuret Pep (0-900) pg/mL Serum Total Protein (6.3-8.2) g/dL Albumin (3.5-5.0) g/dL Slides for Path Review YES - Progress Progress: improved Air Movement: good Progress Note: 11/24/20 23:19 50 years old with history of CAD is evaluated for left-sided chest pain. EKG did not show any acute ST elevation and has negative initial troponin. Is given neb treatment and's steroid along with morphine, on reevaluation pain is better but not completely resolved. Has white count of 13. I have obtained CTA chest which ruled out PE, dissection and no focal consolidation. With patient noncompliance and history of CAD, recommended observation admission for rule out NM. Discussed with Dr. Arndt and patient is accepted for admission. Antibiotics given: No Discussed with Dr.: Krista Will see patient in: hospital (observation) Counseled pt/family regarding: lab results, diagnosis, rad results - Departure Departure Disposition: Observation Clinical Impression: Chest pain, rule out acute myocardial infarction Condition: Stable Critical Care Time: No Referrals: ANJALI ARNDT [Primary Care Provider] -
[2020-11-25 00:13] LABS: INFLUENZA A NEGATIVE (NEGATIVE); INFLUENZA B NEGATIVE (NEGATIVE); RESPIRATORY SYNCTIAL VIRUS NEGATIVE (Negative)
[2020-11-25] MEDS ORDERED: TYLENOL 325 MG PO PRN (00:55)
[2020-11-25] MEDS ORDERED: Zofran 4 MG/2 ML VIAL IV PRN (00:55)
[2020-11-25] MEDS ORDERED: MORPHINE SULFATE 4 MG INJ IV PRN ×2 (01:32→07:15)
[2020-11-25] MEDS ORDERED: Nitrostat 0.4 MG Tablet SL PRN (01:33)
[2020-11-25 03:45] LABS: ALBUMIN 3.9 g/dL (3.5-5.0); ALKALINE PHOSPHATASE 91 U/L (38-126); ANION GAP 10.6 MEQ/L (5-15); BLOOD UREA NITROGEN 22 mg/dL (9-20); CHLORIDE 102 mmol/L (98-107); Calcium 9.3 mg/dL (8.4-10.2); Carbon Dioxide 28 mmol/L (22-30); Creatinine 1 0.88 mg/dL (0.66-1.25); EST GLOMERULAR FILTRATION RATE > 60.0 ML/MIN; Glucose 160 mg/dL (74-106); Potassium 4.6 mmol/L (3.5-5.1); SGOT/AST 20 U/L (17-59); SGPT/ALT 18 U/L (0-50); SODIUM 135 mmol/L (137-145); Total Protein 6.8 g/dL (6.3-8.2)
[2020-11-25 03:55] LABS: Absolute Neutrophil Ct (ANC) 12.04 (1.4-6.9); BASOPHIL % 0.1 % (0.0-0.4); Basophil (Absolute #) 0.01 (0-0.4); Eosinophil (Absolute #) 0 (0-0.5); Hematocrit 43.2 % (42-50); Lymphocytes % 9.7 % (24.0-44.0); Mean Cell Volume 89.4 fl (78-100); Mean Corpuscular Hgb Concent. 32.4 g/dl (32-36); Monocytes % 0.7 % (0.0-12.0); Neutrophil % 89.5 % (36.0-66.0); Platelet Count 339 K/mm3 (150-450); Red Blood Count 4.83 M/mm3 (4.1-5.6); Red Cell Distribution Width 16.3 % (11.5-14.0); White Blood Count 13.5 K/mm3 (4.0-10.5)
[2020-11-25] MEDS ORDERED: DUONEB 0.5-3 MG/3 ml Neb IH SCH (07:00)
--- NOTE | 2020-11-25 08:49 | XRAY ---
Indication: Short of breath. Recent pneumonia last week. Suspect Covid 19. Multiple contiguous axial images obtained through the chest using 80 cc Isovue 370 contrast and PE protocol. Comparison: None There is good opacification of the pulmonary arteries to include the lobar and segmental branches. No pulmonary embolus. Heart is not enlarged. Aorta is normal in course and caliber with very minimal arteriosclerotic calcifications. Tiny subcarinal calcified nodes. No pathologic mediastinal/hilar lymphadenopathy. Lungs demonstrates moderate diffuse pulmonary emphysema with moderate bilateral upper lobe subpleural cystic changes. No suspicious pulmonary mass, infiltrate, or effusion. Bony thorax intact with healing right anterior 5 rib fracture. Limited upper abdomen demonstrates fluid distended stomach, pancreatic duct prominence up to 4 mm, and a few splenic calcified granulomas. Impression: 1. Negative pulmonary embolus. No acute cardiopulmonary abnormalities. 2. Incidental pulmonary emphysema, bilateral upper lobe subpleural cystic changes, nonspecific pancreatic duct prominence, and old granulomatous disease. Comment: Preliminary interpretation was made by [facility]. No critical discrepancy.
[2020-11-25 17:32] VITALS: BP 185/86; PULSE 87; O2SAT 97
== END 2020-11-25 17:34 | disposition left against medical advice (07) ==
LOC: ED 20:33 → MED SURG 11-25 00:52
PROVIDERS: ADMIT Family Medicine; ATTEND Family Medicine
DX: R07.9 Chest pain, unspecified (principal); Z86.79 Personal history of other diseases of the circulatory system; J44.9 Chronic obstructive pulmonary disease, unspecified; R06.02 Shortness of breath; M54.9 Dorsalgia, unspecified; I10 Essential (primary) hypertension; E78.00 Pure hypercholesterolemia, unspecified; R42 Dizziness and giddiness
CPT/HCPCS: 0241U; 36000; 36415; 71260; 80053; 83605; 83880; 84484; 85025; 87040; 93005; 93041; 93268; 94640; 94760; 96374; 96375; 96376; 99284; G0378; Q3014; J2270; J2405; J2930; A9270-GY

== ENCOUNTER 2021-05-17 13:53 | Emergency (ER) | payer MEDICARE ==
--- NOTE | 2021-05-17 14:09 | ERPHSYRPT ---
- History of Present Illness Time Seen by Provider: 05/17/21 14:09 Historian: patient Exam Limitations: no limitations Physician History: This is a 51-year-old white male who presents with bilateral infraumbilical abdominal pain for approximately 1 week. Patient has had a history of ureterolithiasis in the past. It kind of feels like someone is kicking him in the testicles. The pain has worsened. Patient drove himself and he states he cannot get a ride. He has had no other symptoms. He has no chest pain. He has no shortness of breath. He has no nausea vomiting or diarrhea. He states he has been eating and drinking. He does not complain of any flank pain. Patient states that he has had a colonoscopy in the distant past. He states that he has had some mucousy stools that he has passed. Timing/Duration: week(s) (1) Activities at Onset: none Quality: aching, cramping Abdominal Pain Onset Location: other (Bilateral infraumbilical) Pain Radiation: groin Severity of Pain-Max: moderate Severity of Pain-Current: moderate Modifying Factors: Improves With: nothing Associated Symptoms: diarrhea, other (Passage of mucus stools), No nausea, No vomiting Previous symptoms: no prior history, no recent treatment Allergies/Adverse Reactions: No Known Drug Allergies Allergy (Verified 05/17/21 14:18) Hx Tetanus, Diphtheria Vaccination/Date Given: Yes Hx Influenza Vaccination/Date Given: No Hx Pneumococcal Vaccination/Date Given: No Travel Risk - International Travel Have you traveled outside of the country in past 3 weeks: No - Coronavirus Screening Are you exhibiting any of the following symptoms?: No Close contact with a COVID-19 positive Pt in past 14-21 Days: No - Review of Systems Constitutional: No Symptoms Eyes: No Symptoms Ears, Nose, & Throat: No Symptoms Respiratory: No Symptoms Cardiac: No Symptoms Abdominal/Gastrointestinal: Abdominal Pain Genitourinary Symptoms: No Symptoms Musculoskeletal: No Symptoms Skin: No Symptoms Neurological: No Symptoms Psychological: No Symptoms Endocrine: No Symptoms Hematologic/Lymphatic: No Symptoms Immunological/Allergic: No Symptoms All Other Systems: Reviewed and Negative - Past Medical History Pertinent Past Medical History: Yes Neurological History: Seizures ENT History: No Pertinent History Cardiac History: Coronary Artery Disease, High Cholesterol, Hypertension, Myocardial Infarction ([place]) Respiratory History: Asthma Endocrine Medical History: No Pertinent History Musculoskeletal History: No Pertinent History, Degenerative Disk Disease GI Medical History: Diverticulosis, GERD History: No Pertinent History Psycho-Social History: Anxiety, Depression Male Reproductive Disorders: No Pertinent History - Past Surgical History Past Surgical History: Yes Neuro Surgical History: No Pertinent History Cardiac: Cardiac Catheterization, Cardiac Stent Respiratory: No Pertinent History Gastrointestinal: Appendectomy Genitourinary: No Pertinent History Musculoskeletal: Orthopedic Surgery Male Surgical History: No Pertinent History Other Surgical History: Back surgery, 5 cardiac stents, right thumb "put back on" after accident - Social History Smoking Status: Current every day smoker How long have you smoked: 35 years Exposure to second hand smoke: Yes Drug Use: none Patient Lives Alone: Yes Significant Family History: no pertinent family hx - Nursing Vital Signs Nursing Vital Signs: Initial Vital Signs Temperature 97.9 F 05/17/21 14:15 Pulse Rate 96 H 05/17/21 14:15 Respiratory Rate 18 05/17/21 14:15 Blood Pressure 150/101 05/17/21 14:15 O2 Sat by Pulse Oximetry 97 05/17/21 14:15 Pain Scale Pain Intensity 10 - Physical Exam General Appearance: mild distress, alert, anxiety, thin Eye Exam: PERRL/EOMI, eyes nml inspection Ears, Nose, Throat Exam: normal ENT inspection, moist mucous membranes Neck Exam: normal inspection, non-tender, supple, full range of motion Respiratory Exam: normal breath sounds, lungs clear, airway intact, No chest tenderness, No respiratory distress Cardiovascular Exam: regular rate/rhythm, normal heart sounds, normal peripheral pulses Gastrointestinal/Abdomen Exam: soft, normal bowel sounds, tenderness, guarding, other (Pain in the bilateral infraumbilical region), No rebound Rectal Exam: not done Back Exam: normal inspection, normal range of motion, No CVA tenderness, No vertebral tenderness Extremity Exam: normal inspection, normal range of motion, pelvis stable Neurologic Exam: alert, oriented x 3, cooperative, 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 tested, normal mood/affect, nml cerebellar function, nml station & gait, sensation nml Skin Exam: normal color, warm, dry Lymphatic Exam: No adenopathy SpO2 Interpretation: normal O2 Delivery: Room Air - Course Nursing assessment & vital signs reviewed: Yes Ordered Tests: Active Orders 24 hr Category Date Time Status IV Insertion STAT Care 05/17/21 14:29 Active ABDOMEN AND PELVIS W/0 CONTRAS [CT] Stat Exams 05/17/21 14:29 Completed AMYLASE Stat Lab 05/17/21 14:50 Completed CBC W DIFF Stat Lab 05/17/21 14:50 Completed CMP Stat Lab 05/17/21 14:50 Completed CULTURE,URINE Stat Lab 05/17/21 14:50 Received LIPASE Stat Lab 05/17/21 14:50 Completed Lactic Acid Stat Lab 05/17/21 14:29 Completed UA W/RFX UR CULTURE Stat Lab 05/17/21 14:50 Completed Medication Summary Discontinued Medications Generic Name Dose Route Start Last Admin Trade Name Freq PRN Reason Stop Dose Admin Sodium Chloride 1,000 mls @ 999 mls/hr 05/17/21 14:29 05/17/21 14:47 Sodium Chloride 0.9% 1000 Ml IV 05/17/21 15:29 999 mls/hr .Q1H1M STA Administration Sodium Chloride Confirm 05/17/21 14:45 Sodium Chloride 0.9% 1000 Ml Administered 05/17/21 14:46 Dose 1,000 mls @ ud .ROUTE .STK-MED ONE Ketorolac Tromethamine 30 mg 05/17/21 16:34 Toradol 30 Mg Injection IV 05/17/21 16:35 STAT ONE Lab/Rad Data: Laboratory Result Diagrams 05/17/21 14:50 05/17/21 14:50 Laboratory Results 05/17/21 05/17/21 05/17/21 Range/Units 14:50 14:50 14:50 WBC 16.4 H (4.0-10.5) K/mm3 RBC 5.36 (4.1-5.6) M/mm3 Hgb 15.8 (12.5-18.0) gm/dl Hct 46.7 (42-50) % MCV 87.1 (78-100) fl MCH 29.5 (26-32) pg MCHC 33.8 (32-36) g/dl RDW 16.0 H (11.5-14.0) % Plt Count 325 (150-450) K/mm3 MPV 8.6 (7.5-11.0) fl Gran % 76.5 H (36.0-66.0) % Eos # (Auto) 0.09 (0-0.5) Absolute Lymphs (auto) 2.55 (1.0-4.6) Absolute Monos (auto) 1.22 (0.0-1.3) Lymphocytes % 15.5 L (24.0-44.0) % Monocytes % 7.4 (0.0-12.0) % Eosinophils % 0.5 (0.00-5.0) % Basophils % 0.1 (0.0-0.4) % Absolute Granulocytes 12.53 H (1.4-6.9) Basophils # 0.02 (0-0.4) Sodium 138 (137-145) mmol/L Potassium 4.0 (3.5-5.1) mmol/L Chloride 104 (98-107) mmol/L Carbon Dioxide 24 (22-30) mmol/L Anion Gap 14.0 (5-15) MEQ/L BUN 16 (9-20) mg/dL Creatinine 0.87 (0.66-1.25) mg/dL Estimated GFR > 60.0 ML/MIN Glucose 106 (74-106) mg/dL Lactic Acid (0.4-2.0) Calcium 10.1 (8.4-10.2) mg/dL Total Bilirubin 0.70 (0.2-1.3) mg/dL AST 25 (17-59) U/L ALT 16 (0-50) U/L Alkaline Phosphatase 96 (38-126) U/L Serum Total Protein 8.1 (6.3-8.2) g/dL Albumin 4.5 (3.5-5.0) g/dL Amylase 157 H (30-110) U/L Lipase 204 (23-300) U/L Urine Color YELLOW (YELLOW) Urine Appearance SLIGHTLY CLOUDY (CLEAR) Urine pH 5.0 (5-6) Ur Specific [place] 1.029 (1.005-1.025) Urine Protein 30 (Negative) Urine Ketones TRACE (NEGATIVE) Urine Blood MODERATE (0-5) Rudolph/ul Urine Nitrite NEGATIVE (NEGATIVE) Urine Bilirubin SMALL (NEGATIVE) Urine Urobilinogen 2 (0-1) mg/dL Ur Leukocyte Esterase NEGATIVE (NEGATIVE) Urine WBC (Auto) 0-2 (0-5) /HPF Urine RBC (Auto) 6-10 (0-2) /HPF U Epithel Cells (Auto) NONE (FEW) /HPF Urine Bacteria (Auto) RARE (NEGATIVE) /HPF Urine Mucus (Auto) MANY (NEGATIVE) /HPF Urine Culture Reflexed YES (NO) Urine Glucose NEGATIVE (NEGATIVE) mg/dL 05/17/21 Range/Units 14:29 WBC (4.0-10.5) K/mm3 RBC (4.1-5.6) M/mm3 Hgb (12.5-18.0) gm/dl Hct (42-50) % MCV (78-100) fl MCH (26-32) pg MCHC (32-36) g/dl RDW (11.5-14.0) % Plt Count (150-450) K/mm3 MPV (7.5-11.0) fl Gran % (36.0-66.0) % Eos # (Auto) (0-0.5) Absolute Lymphs (auto) (1.0-4.6) Absolute Monos (auto) (0.0-1.3) Lymphocytes % (24.0-44.0) % Monocytes % (0.0-12.0) % Eosinophils % (0.00-5.0) % Basophils % (0.0-0.4) % Absolute Granulocytes (1.4-6.9) Basophils # (0-0.4) Sodium (137-145) mmol/L Potassium (3.5-5.1) mmol/L Chloride (98-107) mmol/L Carbon Dioxide (22-30) mmol/L Anion Gap (5-15) MEQ/L BUN (9-20) mg/dL Creatinine (0.66-1.25) mg/dL Estimated GFR ML/MIN Glucose (74-106) mg/dL Lactic Acid 0.9 (0.4-2.0) Calcium (8.4-10.2) mg/dL Total Bilirubin (0.2-1.3) mg/dL AST (17-59) U/L ALT (0-50) U/L Alkaline Phosphatase (38-126) U/L Serum Total Protein (6.3-8.2) g/dL Albumin (3.5-5.0) g/dL Amylase (30-110) U/L Lipase (23-300) U/L Urine Color (YELLOW) Urine Appearance (CLEAR) Urine pH (5-6) Ur Specific [place] (1.005-1.025) Urine Protein (Negative) Urine Ketones (NEGATIVE) Urine Blood (0-5) Rudolph/ul Urine Nitrite (NEGATIVE) Urine Bilirubin (NEGATIVE) Urine Urobilinogen (0-1) mg/dL Ur Leukocyte Esterase (NEGATIVE) Urine WBC (Auto) (0-5) /HPF Urine RBC (Auto) (0-2) /HPF U Epithel Cells (Auto) (FEW) /HPF Urine Bacteria (Auto) (NEGATIVE) /HPF Urine Mucus (Auto) (NEGATIVE) /HPF Urine Culture Reflexed (NO) Urine Glucose (NEGATIVE) mg/dL - Progress Progress: pain not gone completely, re-examined Progress Note: 05/17/21 16:56 CAT scan of the abdomen pelvis without contrast shows no evidence of any acute intra-abdominal or intrapelvic abnormality. Counseled pt/family regarding: lab results, diagnosis, need for follow-up, rad results - Departure Departure Disposition: Home Clinical Impression: Abdominal pain, Leukocytosis Condition: Stable Critical Care Time: No Referrals: ANJALI SINGER [Primary Care Provider] - Additional Instructions: Drink plenty of clear liquids. Call your primary care doctor tomorrow to make arranges for follow-up appointment and possible repeat colonoscopy if indicated. Take your medication as prescribed. Add ibuprofen [id number] 600 mg o rally 3 times a day with food for the next 5 days. Prescriptions: Ciprofloxacin [Cipro 500 MG] 500 mg PO BID #14 tablet Metronidazole 500 mg [Flagyl 500 MG] 500 mg PO TID #21 tablet Hydrocodone/APAP 5/325 [[place] 5/325 mg] 1 each PO Q8H PRN #6 tablet MDD 3 PRN Reason: Pain
[2021-05-17] MEDS ORDERED: Sodium Chloride 0.9% 1000 ML 1,000 ML ONE (14:45)
[2021-05-17] MEDS: Sodium Chloride 0.9% 1000 ML 1,000 ML IV STA (14:47)
[2021-05-17 14:55] LABS: Absolute Neutrophil Ct (ANC) 12.53 (1.4-6.9); BASOPHIL % 0.1 % (0.0-0.4); Basophil (Absolute #) 0.02 (0-0.4); Eosinophil % 0.5 % (0.00-5.0); Eosinophil (Absolute #) 0.09 (0-0.5); Hematocrit 46.7 % (42-50); Hemoglobin 15.8 gm/dl (12.5-18.0); Lymphocyte (Absolute #) 2.55 (1.0-4.6); Lymphocytes % 15.5 % (24.0-44.0); Mean Cell Volume 87.1 fl (78-100); Mean Corpuscular Hemoglobin 29.5 pg (26-32); Mean Corpuscular Hgb Concent. 33.8 g/dl (32-36); Mean Platelet Volume 8.6 fl (7.5-11.0); Monocyte (Absolute #) 1.22 (0.0-1.3); Monocytes % 7.4 % (0.0-12.0); Neutrophil % 76.5 % (36.0-66.0); Platelet Count 325 K/mm3 (150-450); Red Blood Count 5.36 M/mm3 (4.1-5.6); White Blood Count 16.4 K/mm3 (4.0-10.5)
[2021-05-17 15:07] LABS: ALBUMIN 4.5 g/dL (3.5-5.0); ALKALINE PHOSPHATASE 96 U/L (38-126); AMYLASE 157 U/L (30-110); BLOOD UREA NITROGEN 16 mg/dL (9-20); CHLORIDE 104 mmol/L (98-107); Calcium 10.1 mg/dL (8.4-10.2); Carbon Dioxide 24 mmol/L (22-30); Creatinine 1 0.87 mg/dL (0.66-1.25); EST GLOMERULAR FILTRATION RATE > 60.0 ML/MIN; Glucose 106 mg/dL (74-106); LIPASE 204 U/L (23-300); SGOT/AST 25 U/L (17-59); SGPT/ALT 16 U/L (0-50); SODIUM 138 mmol/L (137-145); Total Protein 8.1 g/dL (6.3-8.2)
[2021-05-17 15:11] LABS: Appearance SLIGHTLY CLOUDY (CLEAR); Bacteria RARE /HPF (NEGATIVE); Bilirubin SMALL (NEGATIVE); Blood MODERATE Ery/ul (0-5); Glucose NEGATIVE (NEGATIVE); Ketones TRACE (NEGATIVE); Leukocyte Esterase NEGATIVE (NEGATIVE); Mucus MANY /HPF (NEGATIVE); Nitrite NEGATIVE (NEGATIVE); Protein,Urine Dip 30 (Negative); Specific Gravity 1.029 (1.005-1.025); Urobilinogen 2 mg/dL (0-1); WBC 0-2 /HPF (0-5)
--- NOTE | 2021-05-17 15:30 | XRAY ---
Indication: Abdomen pain. Multiple contiguous axial images obtained through the abdomen and pelvis without contrast. Comparison: December 12, 2019. Lung bases are again clear. Heart not enlarged. Noncontrasted stomach and bowel loops remain nonobstructed again with appendectomy. Again mild diffuse scattered colonic fecal debris throughout. No free fluid/air. Stable splenic calcified granulomas. Remaining liver, gallbladder, pancreas, spleen, adrenal glands, kidneys, ureters, and bladder are unremarkable for noncontrast exam. There remains mild aortoiliac calcifications without AAA. Osseous structures intact with stable mild lumbosacral junction degenerative disc disease. Impression: 1. Continued mild diffuse fecal stasis. 2. Remaining CT abdomen/pelvis without contrast exam is again negative.
[2021-05-17] MEDS ORDERED: NORCO 5/325 MG ONE (17:24)
[2021-05-17] MEDS ORDERED: TORAdol 30 mg Injection ONE (17:24)
[2021-05-17] MEDS: TORAdol 30 mg Injection IV ONE (17:30)
[2021-05-17] MEDS: NORCO 5/325 MG PO ONE (17:31)
[2021-05-17 17:45] VITALS: BP 150/82; PULSE 76; O2SAT 97
== END 2021-05-17 17:45 | disposition home or self-care (01) ==
LOC: ED 13:53
DX: R10.9 Unspecified abdominal pain (principal); D72.829 Elevated white blood cell count, unspecified
CPT/HCPCS: 36000; 36415; 74176; 80053; 81001; 82150; 83605; 83690; 85025; 87086; 96374; 99284; J1885; A9270-GY

== ENCOUNTER 2021-08-21 06:13 | Emergency (ER) | payer MEDICARE ==
[2021-08-21] MEDS ORDERED: Nitrostat 0.4 MG (ED) SL ONE (06:18)
[2021-08-21] MEDS ORDERED: Zofran 4 MG/2 ML VIAL IV ONE ×2 (06:21→07:24)
[2021-08-21] MEDS ORDERED: Sodium Chloride 0.9% 1000 ML 1,000 ML ONE (06:25)
[2021-08-21] MEDS ORDERED: Zofran 4 MG/2 ML VIAL ONE ×2 (06:25→07:27)
[2021-08-21] MEDS ORDERED: Ntg 0.2MG/Ml in D5W GLASS*** 250 ML IV PRN (06:27)
--- NOTE | 2021-08-21 06:27 | ERPHSYRPT ---
<ISIDRO RODAS - Last Filed: 08/21/21 06:46> - History of Present Illness Time Seen by Provider: 08/21/21 06:22 Historian: patient, EMS Exam Limitations: no limitations Physician History: pt has hx CAD with 5 stents and pt of Dr. Bunn/nurse epidemiologist at [facility] and developed CP last night at 11pm which did not stop after 2 nitros, and came in by EMS this am. also SOBreath. abd nontender. no trauma. some N no V. Timing/Duration: yesterday Quality: pressure, sharpness Location: substernal Chest Pain Radiation: arm Severity of Pain-Max: moderate Severity of Pain-Current: moderate Modifying Factors: Improves With: nothing Associated Symptoms: nausea, heartburn, shortness of breath Prior Chest Pain/Cardiac Workup: cardiac cath Nitro Today/Relief: 0.4 mg x 2, provided at home, no relief Aspirin Treatment Today: 81 mg x 4, provided by EMS Allergies/Adverse Reactions: No Known Drug Allergies Allergy (Verified 08/21/21 06:18) Home Medications: No Reportable Medications [No Reported Medications] 08/21/21 [History] Hx Tetanus, Diphtheria Vaccination/Date Given: Yes Hx Influenza Vaccination/Date Given: No Hx Pneumococcal Vaccination/Date Given: No Travel Risk - Vaccine Status Have you recieved a Covid-19 vaccination: No - Review of Systems Constitutional: No Fever, No Chills Eyes: No Symptoms Ears, Nose, & Throat: No Symptoms Respiratory: Dyspnea, No Cough Cardiac: Chest Pain, No Edema, No Syncope Abdominal/Gastrointestinal: Nausea, No Abdominal Pain, No Vomiting, No Diarrhea Genitourinary Symptoms: No Dysuria Musculoskeletal: No Back Pain, No Neck Pain Skin: No Rash Neurological: No Dizziness, No Focal Weakness, No Sensory Changes Psychological: No Symptoms Endocrine: No Symptoms All Other Systems: Reviewed and Negative - Past Medical History Pertinent Past Medical History: Yes Neurological History: Seizures ENT History: No Pertinent History Cardiac History: Coronary Artery Disease, High Cholesterol, Hypertension, Myocardial Infarction (DE) Respiratory History: Asthma Endocrine Medical History: No Pertinent History Musculoskeletal History: No Pertinent History, Degenerative Disk Disease GI Medical History: Diverticulosis, GERD History: No Pertinent History Psycho-Social History: Anxiety, Depression Male Reproductive Disorders: No Pertinent History - Past Surgical History Past Surgical History: Yes Neuro Surgical History: No Pertinent History Cardiac: Cardiac Catheterization, Cardiac Stent Respiratory: No Pertinent History Gastrointestinal: Appendectomy Genitourinary: No Pertinent History Musculoskeletal: Orthopedic Surgery Male Surgical History: No Pertinent History Other Surgical History: Back surgery, 5 cardiac stents, right thumb "put back on" after accident - Social History Smoking Status: Current every day smoker How long have you smoked: 35 years Exposure to second hand smoke: Yes Drug Use: none Patient Lives Alone: Yes Significant Family History: no pertinent family hx - Physical Exam General Appearance: no apparent distress, alert Eye Exam: PERRL/EOMI, eyes nml inspection Ears, Nose, Throat Exam: normal ENT inspection, moist mucous membranes Neck Exam: normal inspection, non-tender, supple, full range of motion Respiratory Exam: normal breath sounds, lungs clear, No respiratory distress Cardiovascular Exam: regular rate/rhythm, normal heart sounds Gastrointestinal/Abdomen Exam: soft, No tenderness, No mass Rectal Exam: deferred Back Exam: normal inspection, No CVA tenderness, No vertebral tenderness Extremity Exam: normal inspection, normal range of motion Neurologic Exam: alert, oriented x 3, cooperative, normal mood/affect, sensation nml, No motor deficits Skin Exam: normal color, warm, dry SpO2 Interpretation: normal SpO2: 97 O2 Delivery: Room Air - Course Nursing assessment & vital signs reviewed: Yes EKG Interpreted by Me: Sinus Rhythm, Ischemic ST-T changes - Progress Progress: improved, re-examined Air Movement: good Progress Note: 08/21/21 06:46 pt requiring nitro drip after no results with nitro tabs. handing off to Dr. Wilkins at change of shift after discussion of hx , progress, pending labs for final dispo, and introductions. Blood Culture(s) Obtained: No Antibiotics given: No Counseled pt/family regarding: lab results, diagnosis, need for follow-up, rad results - Departure Clinical Impression: Non-STEMI (non-ST elevated myocardial infarction), Amphetamine abuse Condition: Stable Referrals: ANJALI SINGER [Primary Care Provider] - Follow up/PCP as directed <BART WILKINS - Last Filed: 08/21/21 08:38> - Nursing Vital Signs Nursing Vital Signs: Initial Vital Signs Pulse Rate 89 08/21/21 06:15 Respiratory Rate 18 08/21/21 06:15 Blood Pressure 161/115 08/21/21 06:15 O2 Sat by Pulse Oximetry 98 08/21/21 06:15 Pain Scale Pain Intensity 5 Ordered Tests: Active Orders 24 hr Category Date Time Status Liberal [employer] Dean STAT Care 08/21/21 06:19 Active EKG-ER Only STAT Care 08/21/21 06:18 Active IV Insertion STAT Care 08/21/21 06:18 Active Pulse Oximetry (ED) STAT Care 08/21/21 06:18 Active CHEST 1 VIEW (PORTABLE) Stat Exams 08/21/21 06:18 Completed BMP Stat Lab 08/21/21 06:18 Completed CBC W DIFF Stat Lab 08/21/21 06:18 Completed D-DIMER QUANTITATIVE Stat Lab 08/21/21 06:18 Completed LIPASE Stat Lab 08/21/21 06:18 Completed Lactic Acid Stat Lab 08/21/21 06:30 Completed NT PRO BNP Stat Lab 08/21/21 06:18 Completed TROPONIN Q3H Lab 08/21/21 06:30 Completed TROPONIN Q3H Lab 08/21/21 09:30 Ordered TROPONIN Q3H Lab 08/21/21 12:30 Ordered TROPONIN Q3H Lab 08/21/21 15:30 Ordered TROPONIN Q3H Lab 08/21/21 18:30 Ordered UA W/RFX UR CULTURE Stat Lab 08/21/21 07:16 Completed Urine Triage Profile Stat Lab 08/21/21 07:16 Completed Medication Summary Generic Name Dose Route Start Last Admin Trade Name Freq PRN Reason Stop Dose Admin Sodium Chloride 1,000 mls @ 50 mls/hr 08/21/21 06:30 08/21/21 06:29 Sodium Chloride 0.9% 1000 Ml IV 09/20/21 06:29 50 mls/hr .Q20H [place]IL[place] Administration Nitroglycerin/Dextrose 250 mls @ 1.5 mls/hr 08/21/21 06:27 08/21/21 06:49 Ntg 0.2mg/Ml In D5w Glass IV 09/20/21 06:26 10 mcg/min .Q24H PRN 3 mls/hr CHEST PAIN Titration Protocol 5 MCG/MIN Discontinued Medications Generic Name Dose Route Start Last Admin Trade Name Freq PRN Reason Stop Dose Admin Fentanyl Citrate 50 mcg 08/21/21 07:00 08/21/21 07:17 Fentanyl Citrate 100 Mcg/2 Ml* Vial IV 08/21/21 07:01 50 mcg STAT ONE Administration Fentanyl Citrate Confirm 08/21/21 07:13 Fentanyl Citrate 100 Mcg/2 Ml* Vial Administered 08/21/21 07:14 Dose 100 mcg .ROUTE .STK-MED ONE Nitroglycerin 0.4 mg 08/21/21 06:18 08/21/21 06:35 Nitroglycerin 0.4 Mg (Ed) 0.4 Mg Tab.Subl SL 08/21/21 06:19 Not Given STAT ONE Ondansetron HCl 4 mg 08/21/21 06:21 08/21/21 06:32 Ondansetron Hcl 4 Mg/2 Ml Vial IV 08/21/21 06:22 4 mg STAT ONE Administration Ondansetron HCl Confirm 08/21/21 06:25 Ondansetron Hcl 4 Mg/2 Ml Vial Administered 08/21/21 06:26 Dose 4 mg .ROUTE .STK-MED ONE Ondansetron HCl 4 mg 08/21/21 07:24 08/21/21 07:48 Ondansetron Hcl 4 Mg/2 Ml Vial IV 08/21/21 07:25 4 mg STAT ONE Administration Ondansetron HCl Confirm 08/21/21 07:27 Ondansetron Hcl 4 Mg/2 Ml Vial Administered 08/21/21 07:28 Dose 4 mg .ROUTE .STK-MED ONE Lab/Rad Data: Laboratory Result Diagrams 08/21/21 06:18 08/21/21 06:18 Laboratory Results 08/21/21 08/21/21 08/21/21 Range/Units 07:16 07:16 06:30 WBC (4.0-10.5) K/mm3 RBC (4.1-5.6) M/mm3 Hgb (12.5-18.0) gm/dl Hct (42-50) % MCV (78-100) fl MCH (26-32) pg MCHC (32-36) g/dl RDW (11.5-14.0) % Plt Count (150-450) K/mm3 MPV (7.5-11.0) fl Gran % (36.0-66.0) % Eos # (Auto) (0-0.5) Absolute Lymphs (auto) (1.0-4.6) Absolute Monos (auto) (0.0-1.3) Lymphocytes % (24.0-44.0) % Monocytes % (0.0-12.0) % Eosinophils % (0.00-5.0) % Basophils % (0.0-0.4) % Absolute Granulocytes (1.4-6.9) Basophils # (0-0.4) D-Dimer (215-500) ng/mL Sodium (137-145) mmol/L Potassium (3.5-5.1) mmol/L Chloride (98-107) mmol/L Carbon Dioxide (22-30) mmol/L Anion Gap (5-15) MEQ/L BUN (9-20) mg/dL Creatinine (0.66-1.25) mg/dL Estimated GFR ML/MIN Glucose (74-106) mg/dL Lactic Acid (0.4-2.0) Calcium (8.4-10.2) mg/dL Troponin I 2.500 H* (0.000-0.034) ng/mL NT-Pro-B Natriuret Pep (0-900) pg/mL Lipase (23-300) U/L Urine Color YELLOW (YELLOW) Urine Appearance CLEAR (CLEAR) Urine pH 5.0 (5-6) Ur Specific Turner 1.027 (1.005-1.025) Urine Protein NEGATIVE (Negative) Urine Ketones NEGATIVE (NEGATIVE) Urine Blood MODERATE (0-5) Rudolph/ul Urine Nitrite NEGATIVE (NEGATIVE) Urine Bilirubin NEGATIVE (NEGATIVE) Urine Urobilinogen NEGATIVE (0-1) mg/dL Ur Leukocyte Esterase NEGATIVE (NEGATIVE) Urine WBC (Auto) NONE (0-5) /HPF Urine RBC (Auto) 3-5 (0-2) /HPF U Epithel Cells (Auto) NONE (FEW) /HPF Urine Bacteria (Auto) NONE (NEGATIVE) /HPF Urine Mucus (Auto) SLIGHT (NEGATIVE) /HPF Urine Culture Reflexed NO (NO) Urine Glucose 50 (NEGATIVE) mg/dL Urine Opiates Level NEGATIVE (NEGATIVE) Ur Methadone NEGATIVE (NEGATIVE) Urine Barbiturates NEGATIVE (NEGATIVE) Ur Phencyclidine (PCP) NEGATIVE (NEGATIVE) Urine Amphetamine POSITIVE (NEGATIVE) U Benzodiazepine Level NEGATIVE (NEGATIVE) Urine Cocaine NEGATIVE (NEGATIVE) Urine Marijuana (THC) POSITIVE (NEGATIVE) 08/21/21 08/21/21 08/21/21 Range/Units 06:30 06:18 06:18 WBC (4.0-10.5) K/mm3 RBC (4.1-5.6) M/mm3 Hgb (12.5-18.0) gm/dl Hct (42-50) % MCV (78-100) fl MCH (26-32) pg MCHC (32-36) g/dl RDW (11.5-14.0) % Plt Count (150-450) K/mm3 MPV (7.5-11.0) fl Gran % (36.0-66.0) % Eos # (Auto) (0-0.5) Absolute Lymphs (auto) (1.0-4.6) Absolute Monos (auto) (0.0-1.3) Lymphocytes % (24.0-44.0) % Monocytes % (0.0-12.0) % Eosinophils % (0.00-5.0) % Basophils % (0.0-0.4) % Absolute Granulocytes (1.4-6.9) Basophils # (0-0.4) D-Dimer 269 (215-500) ng/mL Sodium 140 (137-145) mmol/L Potassium 3.7 (3.5-5.1) mmol/L Chloride 104 (98-107) mmol/L Carbon Dioxide 21 L (22-30) mmol/L Anion Gap 17.8 H (5-15) MEQ/L BUN 28 H (9-20) mg/dL Creatinine 1.14 (0.66-1.25) mg/dL Estimated GFR > 60.0 ML/MIN Glucose 178 H (74-106) mg/dL Lactic Acid 2.8 H (0.4-2.0) Calcium 10.2 (8.4-10.2) mg/dL Troponin I (0.000-0.034) ng/mL NT-Pro-B Natriuret Pep 568 (0-900) pg/mL Lipase 240 (23-300) U/L Urine Color (YELLOW) Urine Appearance (CLEAR) Urine pH (5-6) Ur Specific Turner (1.005-1.025) Urine Protein (Negative) Urine Ketones (NEGATIVE) Urine Blood (0-5) Rudolph/ul Urine Nitrite (NEGATIVE) Urine Bilirubin (NEGATIVE) Urine Urobilinogen (0-1) mg/dL Ur Leukocyte Esterase (NEGATIVE) Urine WBC (Auto) (0-5) /HPF Urine RBC (Auto) (0-2) /HPF U Epithel Cells (Auto) (FEW) /HPF Urine Bacteria (Auto) (NEGATIVE) /HPF Urine Mucus (Auto) (NEGATIVE) /HPF Urine Culture Reflexed (NO) Urine Glucose (NEGATIVE) mg/dL Urine Opiates Level (NEGATIVE) Ur Methadone (NEGATIVE) Urine Barbiturates (NEGATIVE) Ur Phencyclidine (PCP) (NEGATIVE) Urine Amphetamine (NEGATIVE) U Benzodiazepine Level (NEGATIVE) Urine Cocaine (NEGATIVE) Urine Marijuana (THC) (NEGATIVE) 08/21/21 Range/Units 06:18 WBC 14.6 H (4.0-10.5) K/mm3 RBC 4.99 (4.1-5.6) M/mm3 Hgb 14.6 (12.5-18.0) gm/dl Hct 44.2 (42-50) % MCV 88.6 (78-100) fl MCH 29.3 (26-32) pg MCHC 33.0 (32-36) g/dl RDW 15.7 H (11.5-14.0) % Plt Count 285 (150-450) K/mm3 MPV 9.3 (7.5-11.0) fl Gran % 65.9 (36.0-66.0) % Eos # (Auto) 0.19 (0-0.5) Absolute Lymphs (auto) 3.15 (1.0-4.6) Absolute Monos (auto) 1.60 H (0.0-1.3) Lymphocytes % 21.6 L (24.0-44.0) % Monocytes % 11.0 (0.0-12.0) % Eosinophils % 1.3 (0.00-5.0) % Basophils % 0.2 (0.0-0.4) % Absolute Granulocytes 9.60 H (1.4-6.9) Basophils # 0.03 (0-0.4) D-Dimer (215-500) ng/mL Sodium (137-145) mmol/L Potassium (3.5-5.1) mmol/L Chloride (98-107) mmol/L Carbon Dioxide (22-30) mmol/L Anion Gap (5-15) MEQ/L BUN (9-20) mg/dL Creatinine (0.66-1.25) mg/dL Estimated GFR ML/MIN Glucose (74-106) mg/dL Lactic Acid (0.4-2.0) Calcium (8.4-10.2) mg/dL Troponin I (0.000-0.034) ng/mL NT-Pro-B Natriuret Pep (0-900) pg/mL Lipase (23-300) U/L Urine Color (YELLOW) Urine Appearance (CLEAR) Urine pH (5-6) Ur Specific Turner (1.005-1.025) Urine Protein (Negative) Urine Ketones (NEGATIVE) Urine Blood (0-5) Rudolph/ul Urine Nitrite (NEGATIVE) Urine Bilirubin (NEGATIVE) Urine Urobilinogen (0-1) mg/dL Ur Leukocyte Esterase (NEGATIVE) Urine WBC (Auto) (0-5) /HPF Urine RBC (Auto) (0-2) /HPF U Epithel Cells (Auto) (FEW) /HPF Urine Bacteria (Auto) (NEGATIVE) /HPF Urine Mucus (Auto) (NEGATIVE) /HPF Urine Culture Reflexed (NO) Urine Glucose (NEGATIVE) mg/dL Urine Opiates Level (NEGATIVE) Ur Methadone (NEGATIVE) Urine Barbiturates (NEGATIVE) Ur Phencyclidine (PCP) (NEGATIVE) Urine Amphetamine (NEGATIVE) U Benzodiazepine Level (NEGATIVE) Urine Cocaine (NEGATIVE) Urine Marijuana (THC) (NEGATIVE) - Progress Progress Note: 08/21/21 08:13 Chest x-ray shows no acute cardiopulmonary process. 08/21/21 08:31 Medical decision making: This patient presents with chest pain since late last evening. His first troponin just came back stating that it was elevated at 2.5. He has a non-STEMI. The patient is refusing to be transferred to [facility]. [facility] has no beds available relative to his condition. [facility] evidence since is not excepting patients other than STEMI's and strokes. The patient refuses to go to [facility] in [place] or to [place] even if beds are available. I discussed in detail with him the necessity of being admitted into a facility where there is a nurse epidemiologist available. He is aware he would not be admitted here because he is in need of a higher level of care. He understands that he will sign an AMA form because I am recommending that he be transferred to facility where there is cardiology and higher level of care for his condition. He realizes he may . He states that he will sign the AMA form but will talk to family and friends first. - Departure Departure Disposition: AMA Critical Care Time: Yes Critical Care Time(excluding separately billable procedures): Critical 30-74 mins (30)
[2021-08-21] MEDS ORDERED: Sodium Chloride 0.9% 1000 ML 1,000 ML IV SCH (06:30)
[2021-08-21 06:40] LABS: BASOPHIL % 0.2 % (0.0-0.4); Basophil (Absolute #) 0.03 (0-0.4); Eosinophil % 1.3 % (0.00-5.0); Eosinophil (Absolute #) 0.19 (0-0.5); Hematocrit 44.2 % (42-50); Hemoglobin 14.6 gm/dl (12.5-18.0); Lymphocyte (Absolute #) 3.15 (1.0-4.6); Lymphocytes % 21.6 % (24.0-44.0); Mean Cell Volume 88.6 fl (78-100); Mean Corpuscular Hemoglobin 29.3 pg (26-32); Mean Platelet Volume 9.3 fl (7.5-11.0); Neutrophil % 65.9 % (36.0-66.0); Platelet Count 285 K/mm3 (150-450); Red Blood Count 4.99 M/mm3 (4.1-5.6); Red Cell Distribution Width 15.7 % (11.5-14.0); White Blood Count 14.6 K/mm3 (4.0-10.5)
[2021-08-21] MEDS ORDERED: SUBLIMAZE 100 MCG/2 ML IV ONE ×2 (07:00→09:13)
[2021-08-21] MEDS ORDERED: SUBLIMAZE 100 MCG/2 ML ONE ×2 (07:13→09:16)
[2021-08-21 07:34] LABS: ANION GAP 17.8 MEQ/L (5-15); BLOOD UREA NITROGEN 28 mg/dL (9-20); CHLORIDE 104 mmol/L (98-107); Calcium 10.2 mg/dL (8.4-10.2); Carbon Dioxide 21 mmol/L (22-30); Creatinine 1 1.14 mg/dL (0.66-1.25); EST GLOMERULAR FILTRATION RATE > 60.0 ML/MIN; Glucose 178 mg/dL (74-106); LIPASE 240 U/L (23-300); NT PRO BNP 568 pg/mL (0-900); Potassium 3.7 mmol/L (3.5-5.1); SODIUM 140 mmol/L (137-145)
[2021-08-21 07:40] LABS: Appearance CLEAR (CLEAR); Bilirubin NEGATIVE (NEGATIVE); Blood MODERATE Ery/ul (0-5); Glucose 50 mg/dL (NEGATIVE); Ketones NEGATIVE (NEGATIVE); Leukocyte Esterase NEGATIVE (NEGATIVE); Mucus SLIGHT /HPF (NEGATIVE); Nitrite NEGATIVE (NEGATIVE); Protein,Urine Dip NEGATIVE (Negative); Specific Gravity 1.027 (1.005-1.025); Urobilinogen NEGATIVE mg/dL (0-1)
--- NOTE | 2021-08-21 07:41 | XRAY ---
Indication: Chest pain. Short of breath. Comparison: July 21, 2020. Portable apical lordotic chest again demonstrates normal heart and lungs with incidental right midlung calcified granuloma. Bony thorax intact. No new/acute abnormalities.
[2021-08-21 07:54] LABS: Amphetamine,Urine POSITIVE (NEGATIVE); Barbiturate,Urine NEGATIVE (NEGATIVE); Benzodiazepine,Urine NEGATIVE (NEGATIVE); Cocaine,Urine NEGATIVE (NEGATIVE); Methadone,Urine NEGATIVE (NEGATIVE); Opiate,Urine NEGATIVE (NEGATIVE); PCP,Urine NEGATIVE (NEGATIVE)
[2021-08-21 07:58] LABS: THC,Urine POSITIVE (NEGATIVE)
[2021-08-21 08:54] LABS: Slide Review 1 YES
[2021-08-21] MEDS ORDERED: Heparin 5000 UNITS/0.5 ML (HIGH RISK MED) IV ONE (09:00)
[2021-08-21] MEDS ORDERED: Heparin 25,000 units/D5W 250ML PREMIX 25,000 UNITS/250 ML BAG IV SCH (09:00)
[2021-08-21] MEDS ORDERED: Heparin 5000 UNITS/0.5 ML (HIGH RISK MED) ONE (09:05)
[2021-08-21] MEDS ORDERED: Heparin 25,000 units/D5W 250ML PREMIX 25,000 UNITS/250 ML BAG IV ONE (09:06)
[2021-08-21 09:34] VITALS: BP 142/100; PULSE 104; O2SAT 96
== END 2021-08-21 09:36 | disposition short-term general hospital (02) ==
LOC: ED 06:13
DX: I21.4 Non-ST elevation (NSTEMI) myocardial infarction (principal); R06.02 Shortness of breath; R11.0 Nausea; I10 Essential (primary) hypertension; I25.2 Old myocardial infarction; E78.5 Hyperlipidemia, unspecified; Z72.0 Tobacco use; F15.10 Other stimulant abuse, uncomplicated
CPT/HCPCS: 36000; 36415; 71045; 80048; 80307; 81001; 83605; 83690; 83880; 84484; 85025; 85379; 93005; 93041; 94760; 96360; 96361; 96365; 96367; 96374; 96375; 96376; 99285; 99291; J1644; J2405; J3010

== ENCOUNTER 2021-09-14 10:35 | Observation (INO) | payer MEDICARE ==
[2021-09-14] MEDS ORDERED: BABY ASPIRIN 81 MG CHEW PO ONE (10:59)
[2021-09-14] MEDS ORDERED: MORPHINE SULFATE 4 MG INJ IV ONE (11:00)
[2021-09-14] MEDS ORDERED: Zofran 4 MG/2 ML VIAL IV ONE (11:00)
[2021-09-14] MEDS ORDERED: TYLENOL 325 MG PO ONE (11:00)
[2021-09-14] MEDS ORDERED: TYLENOL 325 MG ONE (11:08)
[2021-09-14] MEDS ORDERED: BABY ASPIRIN 81 MG CHEW ONE (11:08)
[2021-09-14] MEDS ORDERED: Zofran 4 MG/2 ML VIAL ONE (11:08)
[2021-09-14] MEDS ORDERED: MORPHINE SULFATE 4 MG INJ ONE (11:08)
[2021-09-14 11:16] LABS: Absolute Neutrophil Ct (ANC) 6.49 (1.4-6.9); BASOPHIL % 0.2 % (0.0-0.4); Basophil (Absolute #) 0.02 (0-0.4); Eosinophil % 0.6 % (0.00-5.0); Eosinophil (Absolute #) 0.06 (0-0.5); Hematocrit 43.5 % (42-50); Hemoglobin 14.6 gm/dl (12.5-18.0); Lymphocyte (Absolute #) 2.02 (1.0-4.6); Lymphocytes % 20.2 % (24.0-44.0); Mean Cell Volume 88.6 fl (78-100); Mean Corpuscular Hemoglobin 29.7 pg (26-32); Mean Corpuscular Hgb Concent. 33.6 g/dl (32-36); Mean Platelet Volume 8.8 fl (7.5-11.0); Monocyte (Absolute #) 1.41 (0.0-1.3); Monocytes % 14.1 % (0.0-12.0); Neutrophil % 64.9 % (36.0-66.0); Platelet Count 278 K/mm3 (150-450); Red Blood Count 4.91 M/mm3 (4.1-5.6); Red Cell Distribution Width 16.4 % (11.5-14.0)
--- NOTE | 2021-09-14 11:20 | XRAY ---
Indication: Weakness, cough, short of breath. Comparison: August 21, 2021. Portable apical lordotic chest again hyperinflated and clear. Heart not enlarged. Bony thorax intact. No new/acute findings.
[2021-09-14 11:43] LABS: ALBUMIN 4.6 g/dL (3.5-5.0); ALKALINE PHOSPHATASE 87 U/L (38-126); BLOOD UREA NITROGEN 14 mg/dL (9-20); CHLORIDE 102 mmol/L (98-107); CK-Creatinine Phosphokinase 53 U/L (55-170); Calcium 9.6 mg/dL (8.4-10.2); Carbon Dioxide 21 mmol/L (22-30); Creatinine 1 1.12 mg/dL (0.66-1.25); EST GLOMERULAR FILTRATION RATE > 60.0 ML/MIN; Glucose 113 mg/dL (74-106); NT PRO BNP 801 pg/mL (0-900); Potassium 3.9 mmol/L (3.5-5.1); SGOT/AST 27 U/L (17-59); SGPT/ALT 19 U/L (0-50); SODIUM 135 mmol/L (137-145); Total Protein 7.6 g/dL (6.3-8.2)
[2021-09-14 11:44] LABS: INFLUENZA A NEGATIVE (NEGATIVE); INFLUENZA B NEGATIVE (NEGATIVE)
--- NOTE | 2021-09-14 12:50 | ERPHSYRPT ---
- History of Present Illness Time Seen by Provider: 09/14/21 10:44 Source: patient Exam Limitations: no limitations Patient Subjective Stated Complaint: Pt states "I have body aches and I just don't feel good." Triage Nursing Assessment: Pt presented alert and oriented X 3, skin wpd Pt ambulates with an upright steady gait, able to speak in clear full sentences pt resting comfortably. Physician History: 51 years old male with multiple medical problems including coronary artery disease with multiple stenting recent on 08/21 presented in the ER with chest nonspecific complaint of generalized weakness malaise, body aches, chest tightness along with subjective feeling of fever and chills for the last 2 days along with minimal productive cough. Denies any shortness of breath. Patient reports having left arm pain last time when he had stent placed. Does not have any arm pain today. Patient reports he feels miserable. Timing/Duration: day(s) (2), constant, gradual onset, worse Severity: moderate Modifying Factors: Worsens With: movement Associated Symptoms: cough, chills, fever, malaise, weakness, No shortness of breath Allergies/Adverse Reactions: No Known Drug Allergies Allergy (Verified 08/21/21 06:18) Home Medications: Atorvastatin Calcium [Lipitor] 80 mg PO DAILY 09/14/21 [History] Carvedilol 3.125 mg [Coreg 3.125 MG] 3.125 mg PO DAILY 09/14/21 [History] Empagliflozin [Jardiance] 10 mg PO DAILY 09/14/21 [History] Nitroglycerin 0.4 mg Tablet [Nitrostat 0.4 MG Tablet] 0.4 mg SL DAILY PRN 09/14/21 [History] Sacubitril/Valsartan [Entresto 24 mg-26 mg Tablet] 1 tab PO DAILY 09/14/21 [History] Ticagrelor [Brilinta] 90 mg PO DAILY 09/14/21 [History] Hx Tetanus, Diphtheria Vaccination/Date Given: Yes Hx Influenza Vaccination/Date Given: No Hx Pneumococcal Vaccination/Date Given: No Immunizations Up to Date: Yes Travel Risk - International Travel Have you traveled outside of the country in past 3 weeks: No - Coronavirus Screening Are you exhibiting any of the following symptoms?: No - Vaccine Status Have you recieved a Covid-19 vaccination: No - Review of Systems Constitutional: Fever, Chills, Fatigue, Weakness Eyes: No Symptoms Ears, Nose, & Throat: Nose Congestion Respiratory: Cough Cardiac: No Symptoms Abdominal/Gastrointestinal: No Symptoms Genitourinary Symptoms: No Symptoms Musculoskeletal: Myalgias Skin: No Symptoms Neurological: Headache Psychological: Anxiety Endocrine: No Symptoms Hematologic/Lymphatic: No Symptoms Immunological/Allergic: No Symptoms - Past Medical History Pertinent Past Medical History: Yes Neurological History: Seizures ENT History: No Pertinent History Cardiac History: Coronary Artery Disease, High Cholesterol, Hypertension, Myocardial Infarction (MD) Respiratory History: Asthma Endocrine Medical History: No Pertinent History Musculoskeletal History: No Pertinent History, Degenerative Disk Disease GI Medical History: Diverticulosis, GERD History: No Pertinent History Psycho-Social History: Anxiety, Depression Male Reproductive Disorders: No Pertinent History - Past Surgical History Past Surgical History: Yes Neuro Surgical History: No Pertinent History Cardiac: Cardiac Catheterization, Cardiac Stent Respiratory: No Pertinent History Gastrointestinal: Appendectomy Genitourinary: No Pertinent History Musculoskeletal: Orthopedic Surgery Male Surgical History: No Pertinent History Other Surgical History: Back surgery, 5 cardiac stents, right thumb "put back on" after accident - Social History Smoking Status: Current every day smoker How long have you smoked: 35 years Exposure to second hand smoke: Yes Drug Use: none Patient Lives Alone: Yes Significant Family History: no pertinent family hx - Nursing Vital Signs Nursing Vital Signs: Initial Vital Signs Temperature 98.7 F 09/14/21 10:40 Pulse Rate 91 H 09/14/21 10:40 Respiratory Rate 22 09/14/21 10:40 Blood Pressure 153/98 09/14/21 10:40 O2 Sat by Pulse Oximetry 99 09/14/21 10:40 Pain Scale Pain Intensity 0 - Physical Exam General Appearance: no apparent distress, alert, anxiety Eye Exam: PERRL/EOMI, eyes nml inspection Ears, Nose, Throat Exam: pharynx normal, moist mucous membranes, pharyngeal erythema Neck Exam: normal inspection, non-tender, supple, full range of motion Respiratory Exam: normal breath sounds, lungs clear Cardiovascular Exam: regular rate/rhythm, normal heart sounds Gastrointestinal/Abdomen Exam: soft, normal bowel sounds, No tenderness Back Exam: normal inspection, normal range of motion Extremity Exam: normal inspection, normal range of motion, pelvis stable Neurologic Exam: alert, oriented x 3, cooperative, it sales executive II-XII nml as tested Skin Exam: normal color SpO2 Interpretation: normal SpO2: 98 O2 Delivery: Room Air - Course EKG Interpreted by Me: RATE (89), Sinus Rhythm, NORMAL AXIS, NORMAL INTERVALS, Other (ST depression in leads II/3/aVF) Ordered Tests: Active Orders 24 hr Category Date Time Status Blanket Weaver STAT Care 09/14/21 10:59 Active EKG-ER Only STAT Care 09/14/21 10:59 Active IV Insertion STAT Care 09/14/21 10:59 Active CHEST 1 VIEW (PORTABLE) Stat Exams 09/14/21 10:59 Completed CBC W DIFF Stat Lab 09/14/21 10:50 Completed CK-Creatinine Phosphokinase Stat Lab 09/14/21 10:50 Completed CMP Stat Lab 09/14/21 10:50 Completed D-DIMER QUANTITATIVE Stat Lab 09/14/21 16:35 Ordered INFLUENZA A+B MARY ELLEN Stat Lab 09/14/21 11:10 Completed NT PRO BNP Stat Lab 09/14/21 10:50 Completed TROPONIN Q3H Lab 09/14/21 10:50 Completed TROPONIN Q3H Lab 09/14/21 14:03 Completed TROPONIN Q3H Lab 09/14/21 17:00 Ordered TROPONIN Q3H Lab 09/14/21 20:00 Ordered TROPONIN Q3H Lab 09/14/21 23:00 Ordered Urine Triage Profile Stat Lab 09/14/21 14:03 Completed Transfer Order Routine Transfer 09/14/21 Ordered Medication Summary Generic Name Dose Route Start Last Admin Trade Name Freq PRN Reason Stop Dose Admin Remdesivir 200 mg/ Sodium 250 mls @ 125 mls/hr 09/14/21 16:34 Chloride IV 09/14/21 18:33 ONCE ONE Discontinued Medications Generic Name Dose Route Start Last Admin Trade Name Freq PRN Reason Stop Dose Admin Acetaminophen 975 mg 09/14/21 11:00 09/14/21 11:09 Acetaminophen 325 Mg Tablet PO 09/14/21 11:01 975 mg STAT ONE Administration Acetaminophen Confirm 09/14/21 11:08 Acetaminophen 325 Mg Tablet Administered 09/14/21 11:09 Dose 975 mg .ROUTE .STK-MED ONE Aspirin 324 mg 09/14/21 10:59 09/14/21 11:09 Aspirin 81 Mg Tab.Chew PO 09/14/21 11:00 324 mg STAT ONE Administration Aspirin Confirm 09/14/21 11:08 Aspirin 81 Mg Tab.Chew Administered 09/14/21 11:09 Dose 324 mg .ROUTE .STK-MED ONE Dexamethasone Sodium Phosphate 6 mg 09/14/21 16:34 Dexamethasone Sod Phosphate 10 Mg/Ml IV 09/14/21 16:35 STAT ONE Sodium Chloride 1,000 mls @ 999 mls/hr 09/14/21 13:14 09/14/21 14:23 Sodium Chloride 0.9% 1000 Ml IV 09/14/21 14:14 Infused .Q1H1M STA Infusion Sodium Chloride Confirm 09/14/21 13:18 Sodium Chloride 0.9% 1000 Ml Administered 09/14/21 13:19 Dose 1,000 mls @ ud .ROUTE .STK-MED ONE Morphine Sulfate 4 mg 09/14/21 11:00 09/14/21 11:09 Morphine Sulfate 4 Mg/Ml Injection IV 09/14/21 11:01 4 mg STAT ONE Administration Morphine Sulfate Confirm 09/14/21 11:08 Morphine Sulfate 4 Mg/Ml Injection Administered 09/14/21 11:09 Dose 4 mg .ROUTE .STK-MED ONE Ondansetron HCl 4 mg 09/14/21 11:00 09/14/21 11:10 Ondansetron Hcl 4 Mg/2 Ml Vial IV 09/14/21 11:01 4 mg STAT ONE Administration Ondansetron HCl Confirm 09/14/21 11:08 Ondansetron Hcl 4 Mg/2 Ml Vial Administered 09/14/21 11:09 Dose 4 mg .ROUTE .STK-MED ONE Lab/Rad Data: Laboratory Result Diagrams 09/14/21 10:50 09/14/21 10:50 Laboratory Results 09/14/21 09/14/21 09/14/21 Range/Units 15:17 14:03 14:03 WBC (4.0-10.5) K/mm3 RBC (4.1-5.6) M/mm3 Hgb (12.5-18.0) gm/dl Hct (42-50) % MCV (78-100) fl MCH (26-32) pg MCHC (32-36) g/dl RDW (11.5-14.0) % Plt Count (150-450) K/mm3 MPV (7.5-11.0) fl Gran % (36.0-66.0) % Eos # (Auto) (0-0.5) Absolute Lymphs (auto) (1.0-4.6) Absolute Monos (auto) (0.0-1.3) Lymphocytes % (24.0-44.0) % Monocytes % (0.0-12.0) % Eosinophils % (0.00-5.0) % Basophils % (0.0-0.4) % Absolute Granulocytes (1.4-6.9) Basophils # (0-0.4) Sodium (137-145) mmol/L Potassium (3.5-5.1) mmol/L Chloride (98-107) mmol/L Carbon Dioxide (22-30) mmol/L Anion Gap (5-15) MEQ/L BUN (9-20) mg/dL Creatinine (0.66-1.25) mg/dL Estimated GFR ML/MIN Glucose (74-106) mg/dL Calcium (8.4-10.2) mg/dL Total Bilirubin (0.2-1.3) mg/dL AST (17-59) U/L ALT (0-50) U/L Alkaline Phosphatase (38-126) U/L Creatine Kinase (55-170) U/L Troponin I 0.132 H* (0.000-0.034) ng/mL NT-Pro-B Natriuret Pep (0-900) pg/mL Serum Total Protein (6.3-8.2) g/dL Albumin (3.5-5.0) g/dL Urine Opiates Level POSITIVE (NEGATIVE) Ur Methadone NEGATIVE (NEGATIVE) Urine Barbiturates NEGATIVE (NEGATIVE) Ur Phencyclidine (PCP) NEGATIVE (NEGATIVE) Urine Amphetamine NEGATIVE (NEGATIVE) U Benzodiazepine Level NEGATIVE (NEGATIVE) Urine Cocaine NEGATIVE (NEGATIVE) Urine Marijuana (THC) NEGATIVE (NEGATIVE) Influenza Type A Ag NEGATIVE (NEGATIVE) Influenza Type B Ag NEGATIVE (NEGATIVE) RSV (PCR) NEGATIVE (Negative) SARS-CoV-2 (PCR) POSITIVE A (NEGATIVE) 09/14/21 09/14/21 09/14/21 Range/Units 11:10 10:50 10:50 WBC (4.0-10.5) K/mm3 RBC (4.1-5.6) M/mm3 Hgb (12.5-18.0) gm/dl Hct (42-50) % MCV (78-100) fl MCH (26-32) pg MCHC (32-36) g/dl RDW (11.5-14.0) % Plt Count (150-450) K/mm3 MPV (7.5-11.0) fl Gran % (36.0-66.0) % Eos # (Auto) (0-0.5) Absolute Lymphs (auto) (1.0-4.6) Absolute Monos (auto) (0.0-1.3) Lymphocytes % (24.0-44.0) % Monocytes % (0.0-12.0) % Eosinophils % (0.00-5.0) % Basophils % (0.0-0.4) % Absolute Granulocytes (1.4-6.9) Basophils # (0-0.4) Sodium 135 L (137-145) mmol/L Potassium 3.9 (3.5-5.1) mmol/L Chloride 102 (98-107) mmol/L Carbon Dioxide 21 L (22-30) mmol/L Anion Gap 16.0 H (5-15) MEQ/L BUN 14 (9-20) mg/dL Creatinine 1.12 (0.66-1.25) mg/dL Estimated GFR > 60.0 ML/MIN Glucose 113 H (74-106) mg/dL Calcium 9.6 (8.4-10.2) mg/dL Total Bilirubin 0.40 (0.2-1.3) mg/dL AST 27 (17-59) U/L ALT 19 (0-50) U/L Alkaline Phosphatase 87 (38-126) U/L Creatine Kinase 53 L (55-170) U/L Troponin I 0.153 H* (0.000-0.034) ng/mL NT-Pro-B Natriuret Pep 801 (0-900) pg/mL Serum Total Protein 7.6 (6.3-8.2) g/dL Albumin 4.6 (3.5-5.0) g/dL Urine Opiates Level (NEGATIVE) Ur Methadone (NEGATIVE) Urine Barbiturates (NEGATIVE) Ur Phencyclidine (PCP) (NEGATIVE) Urine Amphetamine (NEGATIVE) U Benzodiazepine Level (NEGATIVE) Urine Cocaine (NEGATIVE) Urine Marijuana (THC) (NEGATIVE) Influenza Type A Ag NEGATIVE (NEGATIVE) Influenza Type B Ag NEGATIVE (NEGATIVE) RSV (PCR) (Negative) SARS-CoV-2 (PCR) (NEGATIVE) 09/14/21 Range/Units 10:50 WBC 10.0 (4.0-10.5) K/mm3 RBC 4.91 (4.1-5.6) M/mm3 Hgb 14.6 (12.5-18.0) gm/dl Hct 43.5 (42-50) % MCV 88.6 (78-100) fl MCH 29.7 (26-32) pg MCHC 33.6 (32-36) g/dl RDW 16.4 H (11.5-14.0) % Plt Count 278 (150-450) K/mm3 MPV 8.8 (7.5-11.0) fl Gran % 64.9 (36.0-66.0) % Eos # (Auto) 0.06 (0-0.5) Absolute Lymphs (auto) 2.02 (1.0-4.6) Absolute Monos (auto) 1.41 H (0.0-1.3) Lymphocytes % 20.2 L (24.0-44.0) % Monocytes % 14.1 H (0.0-12.0) % Eosinophils % 0.6 (0.00-5.0) % Basophils % 0.2 (0.0-0.4) % Absolute Granulocytes 6.49 (1.4-6.9) Basophils # 0.02 (0-0.4) Sodium (137-145) mmol/L Potassium (3.5-5.1) mmol/L Chloride (98-107) mmol/L Carbon Dioxide (22-30) mmol/L Anion Gap (5-15) MEQ/L BUN (9-20) mg/dL Creatinine (0.66-1.25) mg/dL Estimated GFR ML/MIN Glucose (74-106) mg/dL Calcium (8.4-10.2) mg/dL Total Bilirubin (0.2-1.3) mg/dL AST (17-59) U/L ALT (0-50) U/L Alkaline Phosphatase (38-126) U/L Creatine Kinase (55-170) U/L Troponin I (0.000-0.034) ng/mL NT-Pro-B Natriuret Pep (0-900) pg/mL Serum Total Protein (6.3-8.2) g/dL Albumin (3.5-5.0) g/dL Urine Opiates Level (NEGATIVE) Ur Methadone (NEGATIVE) Urine Barbiturates (NEGATIVE) Ur Phencyclidine (PCP) (NEGATIVE) Urine Amphetamine (NEGATIVE) U Benzodiazepine Level (NEGATIVE) Urine Cocaine (NEGATIVE) Urine Marijuana (THC) (NEGATIVE) Influenza Type A Ag (NEGATIVE) Influenza Type B Ag (NEGATIVE) RSV (PCR) (Negative) SARS-CoV-2 (PCR) (NEGATIVE) - Progress Progress: improved Progress Note: 09/14/21 12:49 Is given symptomatic treatment, on reevaluation feeling some improvement but still have generalized weakness and malaise symptoms. Has normal white count, grossly unremarkable chemistries and initial troponin 0.[address] some [address] depression in inferior leads. I have shared EKG with Dr. Bunn who does not think patient has ST elevation and I agree with him. We will talk to on- call sports therapist at [facility] Dr. Peng. I have discussed with Dr. Singer who is okay with keeping patient here if second troponin is trending down and if it is elevated, needs to be transferred. 09/14/21 14:48 Patient has a second troponin which is 0.13, trending down and patient is fee ling better. Discussed with Dr. Singer again and patient is being admitted for observation. 09/14/21 16:37 Patient has a positive COVID-19, given Decadron, remdesivir. No focal pneumonia or airspace disease on the x-ray. Patient is maintaining oxygen saturation at room air. Discussed with Dr. Caceres, will obtain D-dimer and he will follow on the results. Patient is admitted. Discussed with Dr.: Juan, Other (Dr. Babcock) Will see patient in: hospital (observation) Counseled pt/family regarding: lab results, diagnosis, need for follow-up, rad results, smoking cessation - Departure Departure Disposition: Observation Clinical Impression: Non-STEMI (non-ST elevated myocardial infarction), COVID-19 virus detected Condition: Stable Critical Care Time: No Referrals: ANJALI SINGER [Primary Care Provider] - Follow up/PCP as directed
[2021-09-14] MEDS ORDERED: Sodium Chloride 0.9% 1000 ML 1,000 ML IV STA (13:14)
[2021-09-14] MEDS ORDERED: Sodium Chloride 0.9% 1000 ML 1,000 ML ONE (13:18)
[2021-09-14 14:43] LABS: Amphetamine,Urine NEGATIVE (NEGATIVE); Barbiturate,Urine NEGATIVE (NEGATIVE); Benzodiazepine,Urine NEGATIVE (NEGATIVE); Cocaine,Urine NEGATIVE (NEGATIVE); Methadone,Urine NEGATIVE (NEGATIVE); Opiate,Urine POSITIVE (NEGATIVE); PCP,Urine NEGATIVE (NEGATIVE); THC,Urine NEGATIVE (NEGATIVE)
[2021-09-14 15:57] LABS: INFLUENZA A NEGATIVE (NEGATIVE); INFLUENZA B NEGATIVE (NEGATIVE); RESPIRATORY SYNCTIAL VIRUS NEGATIVE (Negative)
[2021-09-14 16:21] LABS: SARS-CoV-2 Xpert Express POSITIVE (NEGATIVE)
[2021-09-14] MEDS ORDERED: DECADRON 10MG INJ. IV ONE (16:34)
[2021-09-14] MEDS ORDERED: DECADRON 10MG INJ. ONE (16:40)
[2021-09-14] MEDS: REMDESIVIR 200 MG in Sodium Chloride 0.9% 250 ML 250 ML IV ONE ×2 (17:18→17:35)
[2021-09-14] MEDS ORDERED: MORPHINE SULFATE 2 MG INJ IV PRN (18:13)
[2021-09-14] MEDS ORDERED: Zofran 4 MG/2 ML VIAL IV PRN (18:13)
[2021-09-14] MEDS ORDERED: TYLENOL 325 MG PO PRN (18:13)
[2021-09-14] MEDS ORDERED: HUMALOG SQ PRN (18:13)
[2021-09-14] MEDS ORDERED: MORPHINE SULFATE 4 MG INJ IV PRN (21:23)
[2021-09-15] MEDS ORDERED: Ativan 1 MG PO PRN (01:40)
[2021-09-15] MEDS ORDERED: Ativan 2 MG/1 ML VIAL IV PRN (01:41)
[2021-09-15] MEDS ORDERED: TYLENOL EXTRA STRENGTH 500 MG PO PRN (02:02)
[2021-09-15] MEDS ORDERED: HYDROCODONE-CHLORPHEN ER SUSP PO PRN (02:05)
[2021-09-15 05:57] LABS: Absolute Neutrophil Ct (ANC) 6.27 (1.4-6.9); BASOPHIL % 0.1 % (0.0-0.4); Basophil (Absolute #) 0.01 (0-0.4); Eosinophil (Absolute #) 0 (0-0.5); Hematocrit 44.3 % (42-50); Hemoglobin 14.4 gm/dl (12.5-18.0); Lymphocytes % 18.7 % (24.0-44.0); Mean Cell Volume 90.8 fl (78-100); Mean Corpuscular Hemoglobin 29.5 pg (26-32); Mean Corpuscular Hgb Concent. 32.5 g/dl (32-36); Monocyte (Absolute #) 0.68 (0.0-1.3); Monocytes % 7.9 % (0.0-12.0); Neutrophil % 73.3 % (36.0-66.0); Platelet Count 238 K/mm3 (150-450); Red Blood Count 4.88 M/mm3 (4.1-5.6); Red Cell Distribution Width 16.7 % (11.5-14.0); White Blood Count 8.6 K/mm3 (4.0-10.5)
[2021-09-15] MEDS ORDERED: Sodium Chloride 0.9% 1000 ML 1,000 ML IV SCH (06:00)
[2021-09-15 06:15] LABS: ALBUMIN 4.2 g/dL (3.5-5.0); ALKALINE PHOSPHATASE 78 U/L (38-126); ANION GAP 13.9 MEQ/L (5-15); BLOOD UREA NITROGEN 18 mg/dL (9-20); CHLORIDE 103 mmol/L (98-107); Calcium 8.8 mg/dL (8.4-10.2); Carbon Dioxide 23 mmol/L (22-30); Creatinine 1 1.01 mg/dL (0.66-1.25); EST GLOMERULAR FILTRATION RATE > 60.0 ML/MIN; Glucose 105 mg/dL (74-106); SGOT/AST 30 U/L (17-59); SGPT/ALT 21 U/L (0-50); SODIUM 135 mmol/L (137-145); Total Protein 7.2 g/dL (6.3-8.2)
[2021-09-15 06:46] LABS: Potassium 4.8 mmol/L (3.5-5.1)
[2021-09-15 07:32] VITALS: BP 123/75; PULSE 64; O2SAT 97
--- NOTE | 2021-09-15 08:00 | HP ---
CHIEF COMPLAINT: Muscle aches all over, recent cardiac stents placed. HISTORY OF PRESENT ILLNESS: The patient is a 51-year-old white male who is a heavy smoker with known coronary artery disease. Apparently at [facility] he had multiple stents placed on 08/21/2021 after having acute ischemic event. In the emergency room, he states he did not have any real heaviness or pain in his arms like with his heartache but for two days he has been tired, aching in his joints, arms, legs, knees and a little chest aching but not like his heart attack. He had fevers and chills, does not feel good at all. He stated he did test positive for COVID. He is worried about his stents blocking off among other things. He has no severe shortness of breath, no nausea or vomiting. He is a pack to two packs a day smoker for 30 years. He has no diabetes. TRAVEL RISK: No travel outside of the [facility]. CORONAVIRUS SCREENING: Positive COVID-19 test. Vaccine status: No COVID-19. MEDICATIONS: Lipitor 80, Coreg 3.125 b.i.d., Jardiance 10 mg q.d. not for diabetes, nitroglycerin 0.4 every 4 hours PRN, Entresto 1 q.d., Brilinta 90 q.d. ALLERGIES: NKDA. PAST MEDICAL HISTORY: Anxiety. Gastroesophageal reflux disease. Diverticulosis. Degenerative disc disease of back. Depression. PAST SURGICAL HISTORY: Heart cath and stenting in late July. Appendectomy. Back surgery. Right thumb was put back on after an accident. REVIEW OF SYSTEMS: CONSTITUTIONAL: Fever, chills, aches, weakness for two days. HEENT: Stopped up nose. Taste is okay. CARDIAC: No real cardiac pain, he states. He had stenting for myocardial infarction three weeks ago. GI: Gastroesophageal reflux disease, diverticulosis. No nausea and vomiting. He is eating normal. : No problems urinating. NEUROLOGIC: Some headache all day long. The patient has history of grand mal seizure, none recently. PSYCHOLOGIC: He said he suffers from anxiety and he is worried about the stents. MUSCULOSKELETAL: Degenerative disc disease of the back. PSYCHOSOCIAL: He said he has some chronic anxiety and smokes for that. He has history of depression. SOCIAL HISTORY: He lives alone and on disability. PHYSICAL EXAMINATION: The patient is alert, orientated, talkative and in no distress. VITAL SIGNS: Temperature 98F, pulse 91, respirations 22, blood pressure 153/98. O2 saturation on room air 99%. GENERAL: The patient looks older than his age of 51. HEENT: Pupils equal and reactive to light. NECK: Supple without adenopathy. CHEST: Few crackles bilateral. CVS: Regular rate. No murmurs or gallops. ABDOMEN: Soft, thin. No masses. EXTREMITIES: Numerous tattoos on the arms, very thin. Peripheral pulses are normal. LAB DATA AND TESTS: EKG with mild depression inferior leads II, III, aVF. Lab work: Troponins were minimally elevated first one was 0.132. Urine was positive for opiates. However, I do think he got some morphine in the emergency room. Electrolytes: Sodium 135, potassium 3.9, BUN 14, creatinine 1.12, glucose 113, calcium 9.6. BNP was normal at 801. White count 10, hemoglobin 14.6. IMPRESSION: The patient has tested positive for COVID with most symptoms more musculoskeletal and flu-like. He had recent multiple stents (5) and elevated troponin slightly and for that reason he will be placed under cardiac observation. Will treat his pain with a little bit of morphine and put him on the usual COVID medications. I note that his O2 level is normal luckily. Chest x-ray showed chronic obstructive pulmonary disease with no changes of pneumonia. PROGNOSIS: [place] to be good.
[2021-09-15] MEDS ORDERED: ENOXAPARIN SODIUM SQ SCH (10:00)
[2021-09-15] MEDS ORDERED: PLAVIX 75 MG Tablet PO SCH (10:00)
[2021-09-15] MEDS ORDERED: DECADRON 10MG INJ. IV SCH (10:00)
[2021-09-15] MEDS ORDERED: REMDESIVIR 100 MG in Sodium Chloride 0.9% 100 ML BAG 100 ML IV SCH (16:00)
== END 2021-09-15 09:35 | disposition home or self-care (01) ==
LOC: ED 10:35 → MED SURG 18:05
PROVIDERS: ADMIT Family Medicine; ATTEND Family Medicine
DX: U07.1 COVID-19 (principal); I25.10 Atherosclerotic heart disease of native coronary artery without angina pectoris; E78.00 Pure hypercholesterolemia, unspecified; I10 Essential (primary) hypertension; I25.2 Old myocardial infarction; J44.9 Chronic obstructive pulmonary disease, unspecified; F17.200 Nicotine dependence, unspecified, uncomplicated; Z79.899 Other long term (current) drug therapy; Z98.890 Other specified postprocedural states; Z20.828 Contact with and (suspected) exposure to other viral communicable diseases
CPT/HCPCS: 0241U; 36000; 36415; 71045; 80053; 80307; 82550; 82947; 83880; 84484; 85025; 85379; 87400; 93005; 93041; 93268; 94762; 96360; 96374; 96375; 99285; G0378; J1100; J2270; J2405; A9270-GY

== ENCOUNTER 2024-08-05 08:53 | Emergency (ER) | payer MEDICARE ==
--- NOTE | 2024-08-05 08:56 | ERPHSYRPT ---
- History of Present Illness Time Seen by Provider: 08/05/24 08:56 Source: patient, family Exam Limitations: no limitations Physician History: This is a left handed 54-year-old white male patient who punched a table this morning with his right hand. He punched it out of anger because he is missing his sister who recently. Patient also recently had open heart surgery and has had cardiac stents in the past and is on Brilinta. He is a daily smoker cigarettes. He denies chest pain and he denies shortness of breath. Patient denies being suicidal. He denies being homicidal. Patient is refusing help to arrange outpatient psychiatric and/or grief counseling. Patient denies pain. Patient has history of hyperlipidemia, hypertension, CHF, coronary artery disease, seizure disorder, gastroesophageal reflux disease and degenerative disc disease. Occurred: just prior to arrival Method of Injury: direct blow (Patient punched a table with his right hand) Quality: aching, throbbing Severity of Pain-Max: none Severity of Pain-Current: none Extremities Pain Location: hand: right Modifying Factors: Improves With: movement Associated Symptoms: none Allergies/Adverse Reactions: No Known Drug Allergies Allergy (Verified 08/05/24 09:06) Home Medications: Atorvastatin Calcium [Lipitor] 80 mg PO DAILY 09/14/21 [History] Carvedilol 3.125 mg [Coreg 3.125 MG] 3.125 mg PO DAILY 09/14/21 [History] Empagliflozin [Jardiance] 10 mg PO DAILY 09/14/21 [History] Nitroglycerin 0.4 mg Tablet [Nitrostat 0.4 MG Tablet] 0.4 mg SL DAILY PRN 09/14/21 [History] Sacubitril/Valsartan [Entresto 24 mg-26 mg Tablet] 1 tab PO DAILY 09/14/21 [History] Ticagrelor [Brilinta] 90 mg PO DAILY 09/14/21 [History] Hx Tetanus, Diphtheria Vaccination/Date Given: Yes Hx Influenza Vaccination/Date Given: No Hx Pneumococcal Vaccination/Date Given: No Travel Risk - International Travel Have you traveled outside of the country in past 3 weeks: No - Emerging Infectious Disease Are you exhibiting symptoms associated with any current EIDs: No - Vaccine Status Hx Covid Vaccintation/Booster/Date Given: No - Review of Systems Constitutional: No Symptoms Eyes: No Symptoms Ears, Nose, & Throat: No Symptoms Respiratory: No Symptoms Cardiac: No Symptoms Abdominal/Gastrointestinal: No Symptoms Genitourinary Symptoms: No Symptoms Musculoskeletal: Injury (Right hand) Skin: No Symptoms Neurological: No Symptoms Psychological: No Symptoms Endocrine: No Symptoms Hematologic/Lymphatic: No Symptoms Immunological/Allergic: No Symptoms All Other Systems: Reviewed and Negative - Past Medical History Pertinent Past Medical History: Yes Neurological History: Seizures ENT History: No Pertinent History Cardiac History: Coronary Artery Disease, High Cholesterol, Hypertension, Myocardial Infarction ([place]) Respiratory History: Asthma Endocrine Medical History: No Pertinent History Musculoskeletal History: No Pertinent History, Degenerative Disk Disease GI Medical History: Diverticulosis, GERD History: No Pertinent History Psycho-Social History: Anxiety, Depression Male Reproductive Disorders: No Pertinent History - Past Surgical History Past Surgical History: Yes Neuro Surgical History: No Pertinent History Cardiac: Cardiac Catheterization, Cardiac Stent Respiratory: No Pertinent History Gastrointestinal: Appendectomy Genitourinary: No Pertinent History Musculoskeletal: Orthopedic Surgery Male Surgical History: No Pertinent History Other Surgical History: Back surgery, 7 cardiac stents, right thumb "put back on" after accident Significant Family History: no pertinent family hx - Social History Smoking Status: Current every day smoker How long have you smoked: 35 years Exposure to second hand smoke: Yes Drug Use: none Patient Lives Alone: Yes - Nursing Vital Signs Nursing Vital Signs: Initial Vital Signs Temperature 97.7 F 08/05/24 09:29 Pulse Rate 74 08/05/24 09:29 Respiratory Rate 18 08/05/24 09:29 Blood Pressure 124/76 08/05/24 09:29 O2 Sat by Pulse Oximetry 100 08/05/24 09:29 Pain Scale Pain Intensity 0 - Physical Exam General Appearance: no apparent distress, alert, thin, other (Depressed tearful) Eyes, Ears, Nose, Throat Exam: normal ENT inspection, moist mucous membranes Neck Exam: normal inspection, non-tender, supple, full range of motion Cardiovascular/Respiratory Exam: chest non-tender, no respiratory distress Abdominal Exam: non-tender Back Exam: normal inspection, normal range of motion, No CVA tenderness, No vertebral tenderness Shoulder Exam: normal inspection, non-tender, no evidence of injury, normal ROM Elbow/Forearm Exam: normal inspection, non-tender, no evidence of injury, normal ROM Wrist Exam: normal inspection, non-tender, no evidence of injury, normal ROM Hand Exam: non-tender, normal ROM, ecchymosis (Dorsal aspect), soft tissue tenderness ( dorsal aspect), swelling (Dorsal aspect right) Neuro/Tendon Exam: normal sensation, normal motor functions, normal tendon functions, responds to pain, no evidence tendon injury Mental Status Exam: alert, oriented x 3, cooperative, other (Mildly tearful) Skin Exam: normal color, warm, dry SpO2 Interpretation: normal O2 Delivery: Room Air - Course Nursing assessment & vital signs reviewed: Yes Ordered Tests: Active Orders 24 hr Category Date Time Status HAND (MINIMUM 3 VIEWS) Stat Exams 08/05/24 09:32 Completed - Progress Progress: unchanged Progress Note: 08/05/24 09:56 My medical decision making and the assignment of low complexity to this [facility] medical issue today is based on review of the patient's past medical history, review the patient's medication list, reviewed patient drug allergy list, history present illness and physical findings on examination. The workup in this patient includes x-ray of the patient's right hand. Differential diagnosis includes but not limited to fracture and/or dislocation right hand osseous structures, right hand contusion I interpreted the preliminary report of the patient's right hand x-ray. I do not see an acute, new fracture or dislocation. 08/05/24 10:07 xray right hand final report read by radiologist. old distal 5th metacarpal fx. no other bony articular, soft tissue abnormalities Counseled pt/family regarding: diagnosis, need for follow-up, rad results Medical Desision Making - Independent Historian Additional History obtained from: Family - Diagnostic Testing Diagnostic test were ordered, analyzed, and reviewed by me: Yes Radiological Interpretation: Interpreted by me, Reviewed by me, Teleradiologist Report - Risk of complications Low Risk: Low risk of morbidity from additional dx testing or treatment - Departure Departure Disposition: Home Clinical Impression: Contusion of right hand Condition: Stable Critical Care Time: No Referrals: LILLI ARGUETA [Primary Care Provider] - Follow up/PCP as directed Additional Instructions: Ice pack/ice bath 3 times daily. Use tylenol for pain control. follow up with primary doctor for persistent pain symptoms
[2024-08-05 09:32] VITALS: BP 124/76; PULSE 74; RESP 18; TEMP 97.7
--- NOTE | 2024-08-05 10:00 | XRAY ---
Indication: Pain following punching injury. Comparison: None 3 view right hand demonstrates incidental 6 mm bone island 3rd proximal phalanx distally and old distal 5th metacarpal fracture. No other bony, articular, or soft tissue abnormalities.
[2024-08-05 10:35] VITALS: O2SAT 98
== END 2024-08-05 10:45 | disposition home or self-care (01) ==
LOC: ED 08:53
DX: S60.221A Contusion of right hand, initial encounter (principal); W22.8XXA Striking against or struck by other objects, initial encounter; Z79.899 Other long term (current) drug therapy
CPT/HCPCS: 73130; 99283

== ENCOUNTER 2024-09-25 10:15 | Emergency (ER) | payer MEDICARE ==
[2024-09-25 10:37] VITALS: TEMP 98.9
--- NOTE | 2024-09-25 10:42 | ERPHSYRPT ---
- History of Present Illness Time Seen by Provider: 09/25/24 10:40 Source: patient, family Exam Limitations: no limitations Patient Subjective Stated Complaint: cough, body aches, "heads fuzzy" Triage Nursing Assessment: Pt brought to the ER by his son, hypertensive, tachycardic, rates pain as 8/10, pulses normal, lungs clear, skin n/w/d, doesn't appear to be in any distress Physician History: This 54-year-old male with significant past medical history of coronary artery bypass surgery coronary artery disease congestive heart failure hyperlipidemia started getting sick since last 2 days with complaining of fever chills generalized body ache cough. Patient smokes around 3 to 5 cigarettes/day. Patient is also complaining of headache and fuzziness in the head. Patient denies any blood in the vomiting any nausea vomiting diarrhea or blood in the stool or urine. Timing/Duration: yesterday Severity: moderate Associated Symptoms: cough, chills, malaise Allergies/Adverse Reactions: No Known Drug Allergies Allergy (Verified 09/25/24 10:37) Home Medications: Atorvastatin Calcium [Lipitor] 80 mg PO DAILY 09/14/21 [History] Aspirin [Aspirin EC] 81 mg PO DAILY 09/25/24 [History] Clopidogrel Bisulfate [Clopidogrel] 75 mg PO DAILY 09/25/24 [History] Dapagliflozin Propanediol [Farxiga] 10 mg PO DAILY 09/25/24 [History] Furosemide 40 mg [Lasix 40 MG] 40 mg PO BID 09/25/24 [History] Isosorbide Mononitrate 30 mg [Imdur 30 MG] 30 mg PO DAILY 09/25/24 [History] Losartan Potassium [Cozaar] 25 mg PO DAILY 09/25/24 [History] Metoprolol Tartrate 25 mg [Lopressor 25MG Tab] 25 mg PO BID 09/25/24 [History] Potassium Chloride 20 meq PO BID 09/25/24 [History] Spironolactone 25 mg [Aldactone 25 MG] 12.5 mg PO DAILY 09/25/24 [History] Hx Tetanus, Diphtheria Vaccination/Date Given: Yes Hx Influenza Vaccination/Date Given: No Hx Pneumococcal Vaccination/Date Given: No Travel Risk - International Travel Have you traveled outside of the country in past 3 weeks: No - Emerging Infectious Disease Are you exhibiting symptoms associated with any current EIDs: Yes Symptoms: Cough: New Onset, Headaches/Body Aches/, Shortness of Breath - Review of Systems Constitutional: Malaise, Weakness, No Fever, No Chills Eyes: No Symptoms Ears, Nose, & Throat: No Symptoms Respiratory: Cough, Dyspnea on Exertion (VIVEROS), Wheezing, No Dyspnea Cardiac: No Chest Pain, No Edema, No Syncope Abdominal/Gastrointestinal: No Abdominal Pain, No Nausea, No Vomiting, No Diarrhea Genitourinary Symptoms: No Dysuria Musculoskeletal: No Back Pain, No Neck Pain Skin: No Rash Neurological: No Dizziness, No Focal Weakness, No Sensory Changes Psychological: No Symptoms Endocrine: No Symptoms All Other Systems: Reviewed and Negative - Past Medical History Pertinent Past Medical History: Yes Neurological History: Seizures ENT History: No Pertinent History Cardiac History: Coronary Artery Disease, High Cholesterol, Hypertension, M yocardial Infarction ([place]) Respiratory History: Asthma, Emphysema Endocrine Medical History: No Pertinent History Musculoskeletal History: No Pertinent History, Degenerative Disk Disease GI Medical History: Diverticulosis, GERD History: No Pertinent History Psycho-Social History: Anxiety, Depression Male Reproductive Disorders: No Pertinent History - Past Surgical History Past Surgical History: Yes Neuro Surgical History: No Pertinent History Cardiac: CABG, Cardiac Catheterization, Cardiac Stent Respiratory: No Pertinent History Gastrointestinal: Appendectomy Genitourinary: No Pertinent History Musculoskeletal: Orthopedic Surgery Male Surgical History: No Pertinent History Other Surgical History: Back surgery, 7 cardiac stents, right thumb "put back on" after accident Significant Family History: no pertinent family hx - Social History Smoking Status: Current every day smoker How long have you smoked: 35 years Exposure to second hand smoke: Yes Drug Use: none Patient Lives Alone: Yes - Social Determinants of Health Will the patient participate in the screening: Yes Do you worry about a steady place to live?: No Do you have any problems with any of the following?: No known problems In the past 12 months,have you had to go without utilities?: No Transportation Issues: No Has anyone in your support network made you feel unsafe?: No Have you or anyone in your house had to go without enough: No - Nursing Vital Signs Nursing Vital Signs: Initial Vital Signs Temperature 98.9 F 09/25/24 10:29 Pulse Rate 112 H 09/25/24 10:29 Blood Pressure 132/85 09/25/24 10:29 O2 Sat by Pulse Oximetry 95 09/25/24 10:29 Pain Scale Pain Intensity 8 - Physical Exam General Appearance: no apparent distress, alert Eye Exam: PERRL/EOMI, eyes nml inspection Ears, Nose, Throat Exam: normal ENT inspection, TMs normal, pharynx normal, moist mucous membranes Neck Exam: normal inspection, non-tender, supple, full range of motion Respiratory Exam: diminished breath sounds, rhonchi, wheezing, No respiratory distress Cardiovascular Exam: regular rate/rhythm, normal heart sounds, normal peripheral pulses Gastrointestinal/Abdomen Exam: soft, normal bowel sounds, No tenderness, No mass Back Exam: normal inspection, normal range of motion, No CVA tenderness, No vertebral tenderness Extremity Exam: normal inspection, normal range of motion, pelvis stable Neurologic Exam: alert, oriented x 3, cooperative, normal mood/affect, nml cerebellar function, nml station & gait, sensation nml, No motor deficits Skin Exam: normal color, warm, dry, No rash Lymphatic Exam: No adenopathy SpO2: 97 - Course Nursing assessment & vital signs reviewed: Yes EKG Interpreted by Me: Sinus Rhythm, Non-specific ST Changes Rhythm Strip: Normal Sinus Rhythm - Radiology Exams Chest X-ray Interpretation: Interpreted by me, Reviewed by me, Infiltrates (right lower lobes) Ordered Tests: Active Orders 24 hr Category Date Time Status EKG-ER Only STAT Care 09/25/24 10:33 Active CHEST 2 VIEWS (PA AND LAT) Stat Exams 09/25/24 10:34 Taken BLOOD CULTURE Stat Lab 09/25/24 11:02 Received CBC W DIFF Stat Lab 09/25/24 10:33 Completed CMP Stat Lab 09/25/24 10:53 Completed MAGNESIUM Stat Lab 09/25/24 10:53 Completed NT PRO BNPII Stat Lab 09/25/24 10:53 Completed TROPONIN Q4H Lab 09/25/24 10:53 Completed TROPONIN Q4H Lab 09/25/24 14:45 Ordered TROPONIN Q4H Lab 09/25/24 18:45 Ordered Medication Summary Generic Name Dose Route Start Last Admin Trade Name Freq PRN Reason Stop Dose Admin Azithromycin 500 mg in 250 mls @ 250 mls/hr 09/25/24 11:21 09/25/24 11:47 Zithromax 500 Mg/ 250 Ml Nacl Premix IV 09/25/24 12:20 250 mls/hr STAT STA 250 mls/hr Administration Discontinued Medications Generic Name Dose Route Start Last Admin Trade Name Adrian PRN Reason Stop Dose Admin Budesonide 0.5 mg 09/25/24 11:42 Budesonide 0.5 Mg/2 Ml Ampul.Neb. IH 09/25/24 11:43 ONCE ONE Guaifenesin/Codeine Phosphate 10 ml 09/25/24 11:42 09/25/24 11:44 Guaifenesin/Codeine Phosphate 5 Ml Udcup PO 09/25/24 11:43 10 ml ONCE ONE Administration Guaifenesin/Codeine Phosphate Confirm 09/25/24 11:44 Guaifenesin/Codeine Phosphate 5 Ml Udcup Administered 09/25/24 11:45 Dose 10 ml .ROUTE .STK-MED ONE Sodium Chloride 1,000 mls @ 999 mls/hr 09/25/24 10:33 09/25/24 12:00 Sodium Chloride 0.9% 1000 Ml IV 09/25/24 11:33 Infused .Q1H1M STA Infusion Sodium Chloride Confirm 09/25/24 10:58 Sodium Chloride 0.9% 1000 Ml Administered 09/25/24 10:59 Dose 1,000 mls @ ud .ROUTE .STK-MED ONE Ceftriaxone Sodium 1 gm in 100 mls @ 200 mls/hr 09/25/24 11:21 09/25/24 12:00 Rocephin 1 Gm / 100 Ml Nacl IV 09/25/24 11:50 Infused STAT ONE Infusion Azithromycin Confirm 09/25/24 11:25 Zithromax 500 Mg/ 250 Ml Nacl Premix Administered 09/25/24 11:26 Dose 500 mg in 250 mls @ ud IV .STK-MED ONE Ceftriaxone Sodium Confirm 09/25/24 11:26 Rocephin 1 Gm / 100 Ml Nacl Administered 09/25/24 11:27 Dose 1 gm in 100 mls @ ud IV .STK-MED ONE Ketorolac Tromethamine 30 mg 09/25/24 10:35 09/25/24 10:59 Ketorolac Tromethamine 30 Mg/Ml Inj IV 09/25/24 10:36 30 mg STAT ONE Administration Ketorolac Tromethamine Confirm 09/25/24 10:58 Ketorolac Tromethamine 30 Mg/Ml Inj Administered 09/25/24 10:59 Dose 30 mg .ROUTE .STK-MED ONE Ondansetron HCl 4 mg 09/25/24 10:57 09/25/24 10:58 Ondansetron Hcl 4 Mg/2 Ml Vial IV 09/25/24 10:58 4 mg STAT ONE Administration Ondansetron HCl Confirm 09/25/24 10:58 Ondansetron Hcl 4 Mg/2 Ml Vial Administered 09/25/24 10:59 Dose 4 mg .ROUTE .STK-MED ONE Oseltamivir Phosphate 75 mg 09/25/24 11:53 Oseltamivir 75 Mg Cap PO 09/25/24 11:54 STAT ONE Lab/Rad Data: Laboratory Result Diagrams 09/25/24 10:33 09/25/24 10:53 Laboratory Results 09/25/24 09/25/24 09/25/24 Range/Units 11:03 10:53 10:53 WBC (4.23-9.07) x10^3/uL RBC (4.63-6.08) x10^6/uL Hgb (13.7-17.5) g/dL Hct (40.1-51.0) % MCV (79.0-92.2) fL MCH (25.7-32.2) pg MCHC (32.3-36.5) g/dL RDW (11.6-14.4) % Plt Count (163-337) x10^3/uL MPV (9.4-12.4) fL Gran % (34.0-67.9) % Immature Gran % (Auto) (0.001-0.429) % Nucleat RBC Rel Count (0.00-0.2) % Eos # (Auto) (0.04-0.54) x10^3/uL Immature Gran # (Auto) (0.001-0.031) x10^3u/L Absolute Lymphs (auto) (1.32-3.57) x10^3/uL Absolute Monos (auto) (0.30-0.82) x10^3/uL Absolute Nucleated RBC (0.00-0.012) x10^3u/L Lymphocytes % (21.8-53.1) % Monocytes % (5.3-12.2) % Eosinophils % (0.8-7.0) % Basophils % (0.2-1.2) % Absolute Granulocytes (1.78-5.38) x10^3/uL Basophils # (0.01-0.08) x10^3/uL Sodium 135 (135-145) mmol/L Potassium 3.9 (3.5-5.1) mmol/L Chloride 102 (98-107) mmol/L Carbon Dioxide 20 L (22-30) mmol/L Anion Gap 16.8 H (5-15) MEQ/L BUN 16 (9-20) mg/dL Creatinine 1.41 H (0.66-1.25) mg/dL Estimated GFR 58.9 ML/MIN Glucose 137 H (74-106) mg/dL Calcium 9.9 (8.4-10.2) mg/dL Magnesium 1.7 (1.6-2.3) mg/dL Total Bilirubin 0.40 (0.2-1.3) mg/dL AST 39 (17-59) U/L ALT 38 (0-50) U/L Alkaline Phosphatase 110 (38-126) U/L Troponin I 0.041 H* (0.000-0.033) ng/mL NT-Pro-B Natriuret Pep 2260 (<300) pg/mL Serum Total Protein 7.9 (6.3-8.2) g/dL Albumin 4.8 (3.5-5.0) g/dL Influenza Type A Ag POSITIVE A (NEGATIVE) Influenza Type B Ag NEGATIVE (NEGATIVE) RSV (PCR) NEGATIVE (NEGATIVE) SARS-CoV-2 (PCR) NEGATIVE (NEGATIVE) 09/25/24 Range/Units 10:33 WBC 9.2 H (4.23-9.07) x10^3/uL RBC 4.41 L (4.63-6.08) x10^6/uL Hgb 12.6 L (13.7-17.5) g/dL Hct 36.6 L (40.1-51.0) % MCV 83.0 (79.0-92.2) fL MCH 28.6 (25.7-32.2) pg MCHC 34.4 (32.3-36.5) g/dL RDW 17.4 H (11.6-14.4) % Plt Count 303 (163-337) x10^3/uL MPV 8.8 L (9.4-12.4) fL Gran % 82.9 H (34.0-67.9) % Immature Gran % (Auto) 0.5 H (0.001-0.429) % Nucleat RBC Rel Count 0.0 (0.00-0.2) % Eos # (Auto) 0.02 L (0.04-0.54) x10^3/uL Immature Gran # (Auto) 0.05 H (0.001-0.031) x10^3u/L Absolute Lymphs (auto) 0.36 L (1.32-3.57) x10^3/uL Absolute Monos (auto) 1.12 H (0.30-0.82) x10^3/uL Absolute Nucleated RBC 0.00 (0.00-0.012) x10^3u/L Lymphocytes % 3.9 L (21.8-53.1) % Monocytes % 12.2 (5.3-12.2) % Eosinophils % 0.2 L (0.8-7.0) % Basophils % 0.3 (0.2-1.2) % Absolute Granulocytes 7.60 H (1.78-5.38) x10^3/uL Basophils # 0.03 (0.01-0.08) x10^3/uL Sodium (135-145) mmol/L Potassium (3.5-5.1) mmol/L Chloride (98-107) mmol/L Carbon Dioxide (22-30) mmol/L Anion Gap (5-15) MEQ/L BUN (9-20) mg/dL Creatinine (0.66-1.25) mg/dL Estimated GFR ML/MIN Glucose (74-106) mg/dL Calcium (8.4-10.2) mg/dL Magnesium (1.6-2.3) mg/dL Total Bilirubin (0.2-1.3) mg/dL AST (17-59) U/L ALT (0-50) U/L Alkaline Phosphatase (38-126) U/L Troponin I (0.000-0.033) ng/mL NT-Pro-B Natriuret Pep (<300) pg/mL Serum Total Protein (6.3-8.2) g/dL Albumin (3.5-5.0) g/dL Influenza Type A Ag (NEGATIVE) Influenza Type B Ag (NEGATIVE) RSV (PCR) (NEGATIVE) SARS-CoV-2 (PCR) (NEGATIVE) - Progress Progress: improved Counseled pt/family regarding: lab results, diagnosis, need for follow-up, rad results, smoking cessation Medical Desision Making - Independent Historian Additional History obtained from: Family - Diagnostic Testing Diagnostic test were ordered, analyzed, and reviewed by me: Yes Radiological Interpretation: Interpreted by me, Reviewed by me - Risk of complications The pt has a mod risk of morbidity or mortality based on: Need for prescription drug management - Departure Departure Disposition: Home Clinical Impression: Influenza and pneumonia, Influenza A, Elevated troponin level not due myocardial infarction Condition: Stable Critical Care Time: No Referrals: LILLI ARGUETA [Primary Care Provider] - Follow up/PCP as directed Instructions: Flu, Pneumonia, Adult (DC) Additional Instructions: Discharge/Care Plan LETY SHEPPARD JR was seen on 09/25/24 in the Emergency Room. The patient was counseled regarding Diagnosis,Lab results, Imaging studies, need for follow up and when to return to the Emergency Room. Prescriptions given: Discharge Note I have spoken with the patient and/or caregivers. I have explained the patient's condition, diagnosis and treatment plan based on the information available to me at this time. I have answered the patient's and/or caregiver's questions and addressed any concerns. The patient and/or caregivers have as good understanding of the patient's diagnosis, condition and treatment plan as can be expected at this point. The vital signs have been stable. The patient's condition is stable and appropriate for discharge from the emergency department. The patient will pursue further outpatient evaluation with the primary care haakn sician or other designated or consulting physician as outlined in the discharge instructions. The patient and/or caregivers are agreeable to this plan of care and follow-up instructions have been explained in detail. The patient and/or caregivers have received these instruction. The patient/and or caregivers are aware that any significant change in condition or worsening of symptoms should prompt an immediate return to this or the closest emergency department or call 911. LETY SHEPPARD JR was seen on 09/25/24 n the Emergency Room. At that time you were treated for an emergent condition, during your visit Laboratory, Radiology and/or other procedures may have been ordered. It is very important that you follow-up with your Primary Care Physician LILLI ARGUETA within the next 24-48 hours to review your Emergency Room visit and the final results of testing that was ordered. Some test results such as Urine Cultures, Blood Cultures, and other cultures if ordered will not be finalized for 24-48 hours. If you do not have a Primary Care Provider please call the medical records department at [phone] ext [phone] to obtain a copy of your results or you may sign into our patient portal to obtain these results by visiting us @ [email or web address] and completing the following steps: 1. Click on the Patient Portal link 2. Click the Patient Self Enrollment Link to complete the enrollment form and e ntering your 3. Once the enrollment form is completed you will receive an email with a temporary ID and password at the email address you provided. 4. Next choose a user name and password. Your user name must be at least 4 characters long and your password must be at least 4 characters long. 5. Choose a security question from the list and provide your answer to the question. If you already have signed into the Health Portal you may access your Health Care Information 17/04 by the following steps: 1. Login to our website @ [email or web address] 2. Enter your original user name and password. FAQS The [facility] Health Portal is an online tool that contains your Lab Results, Radiology Reports, Visit History, Discharge Instructions and Health Summary Lab and Radiology Results will not be available for 72 hours on the portal. The Portal is a secure site, passwords are encryted and URLs are re-written so they cannot be copied and pasted. You and authorized family members are the only ones who can access your Portal. Also there is a timeout feature that protects your information if you leave the Portal page open. If you have technical difficulty please use the Contact Us link on the page this will allow you to submit any questions you have regarding the Portal or you may contact the Medical Record Department at [phone]. Prescriptions: Cephalexin Mh 500 mg [Keflex 500 mg] 500 mg PO Q6H #40 cap Oseltamivir 75 mg [Tamiflu 75MG Capsule] 75 mg PO BID #10 cap
[2024-09-25] MEDS ORDERED: Zofran 4 MG/2 ML VIAL ONE (10:58)
[2024-09-25] MEDS: Zofran 4 MG/2 ML VIAL IV ONE (10:58)
[2024-09-25] MEDS ORDERED: Sodium Chloride 0.9% 1000 ML 1,000 ML ONE (10:58)
[2024-09-25] MEDS ORDERED: TORAdol 30 mg Injection ONE (10:58)
[2024-09-25] MEDS: TORAdol 30 mg Injection IV ONE (10:59)
[2024-09-25] MEDS: Sodium Chloride 0.9% 1000 ML 1,000 ML IV STA (10:59)
[2024-09-25 11:09] LABS: BASOPHIL % 0.3 % (0.2-1.2); Basophil (Absolute #) 0.03 x10^3/uL (0.01-0.08); Eosinophil % 0.2 % (0.8-7.0); Eosinophil (Absolute #) 0.02 x10^3/uL (0.04-0.54); Hematocrit 36.6 % (40.1-51.0); Hemoglobin 12.6 g/dL (13.7-17.5); IMMATURE GRAN # 0.05 x10^3u/L (0.001-0.031); IMMATURE GRAN % 0.5 % (0.001-0.429); Lymphocyte (Absolute #) 0.36 x10^3/uL (1.32-3.57); Lymphocytes % 3.9 % (21.8-53.1); Mean Corpuscular Hemoglobin 28.6 pg (25.7-32.2); Mean Corpuscular Hgb Concent. 34.4 g/dL (32.3-36.5); Mean Platelet Volume 8.8 fL (9.4-12.4); Monocyte (Absolute #) 1.12 x10^3/uL (0.30-0.82); Monocytes % 12.2 % (5.3-12.2); Neutrophil % 82.9 % (34.0-67.9); Platelet Count 303 x10^3/uL (163-337); Red Blood Count 4.41 x10^6/uL (4.63-6.08); Red Cell Distribution Width 17.4 % (11.6-14.4); White Blood Count 9.2 x10^3/uL (4.23-9.07)
[2024-09-25] MEDS ORDERED: Zithromax 500 MG/ 250 ML NaCl Premix 500 MG/250 ML IVPB IV ONE (11:25)
[2024-09-25] MEDS ORDERED: ROCEPHIN 1 GM / 100 ML NaCl 1 GM/100 ML IVPB IV ONE (11:26)
[2024-09-25] MEDS: ROCEPHIN 1 GM / 100 ML NaCl 1 GM/100 ML IVPB IV ONE (11:26)
[2024-09-25 11:33] LABS: ALBUMIN 4.8 g/dL (3.5-5.0); ANION GAP 16.8 MEQ/L (5-15); BILIRUBIN,TOTAL 0.4 mg/dL (0.2-1.3); Calcium 9.9 mg/dL (8.4-10.2); Creatinine 1 1.41 mg/dL (0.66-1.25); EST GLOMERULAR FILTRATION RATE 58.9 ML/MIN; MAGNESIUM 1.7 mg/dL (1.6-2.3); Potassium 3.9 mmol/L (3.5-5.1); Total Protein 7.9 g/dL (6.3-8.2)
[2024-09-25] MEDS ORDERED: Robitussin AC Syrup Unit Dose Cup ONE (11:44)
[2024-09-25] MEDS: Robitussin AC Syrup Unit Dose Cup PO ONE (11:44)
[2024-09-25 11:45] LABS: INFLUENZA B NEGATIVE (NEGATIVE); RESPIRATORY SYNCTIAL VIRUS NEGATIVE (NEGATIVE); SARS-CoV-2 Xpert Express NEGATIVE (NEGATIVE)
[2024-09-25] MEDS: Zithromax 500 MG/ 250 ML NaCl Premix 500 MG/250 ML IVPB IV STA (11:47)
[2024-09-25 11:49] LABS: INFLUENZA A POSITIVE (NEGATIVE)
[2024-09-25] MEDS: PULMICORT 0.5 MG/2 ML RESPULES IH ONE (12:12)
[2024-09-25] MEDS ORDERED: Tamiflu 75MG Capsule PO ONE (12:21)
[2024-09-25] MEDS: Tamiflu 75MG Capsule PO ONE (12:22)
[2024-09-25 13:21] VITALS: BP 93/57; PULSE 79; RESP 18; O2SAT 95
--- NOTE | 2024-09-25 18:07 | XRAY ---
Indication: Cough and congestion. Comparison: June 21, 2024 PA/lateral chest again hyperinflated. New subtle right lower lobe infiltrate/atelectasis with tiny effusion. Heart not enlarged again with CABG. Bony thorax intact.
== END 2024-09-25 13:23 | disposition home or self-care (01) ==
LOC: ED 10:15
DX: J10.00 Influenza due to other identified influenza virus with unspecified type of pneumonia (principal); R77.8 Other specified abnormalities of plasma proteins; R50.9 Fever, unspecified; M79.10 Myalgia, unspecified site; R05.1 Acute cough; R51.9 Headache, unspecified; E78.5 Hyperlipidemia, unspecified; I10 Essential (primary) hypertension; Z79.02 Long term (current) use of antithrombotics/antiplatelets; Z79.899 Other long term (current) drug therapy; Z72.0 Tobacco use
CPT/HCPCS: 0241U; 36415; 71046; 80053; 83735; 83880; 84484; 85025; 87040; 93005; 94640; 96365; 96374; 96375; 99285; 99284; J0456; J0696; J1885; J2405; A9270-GY